=== PATIENT | female | born 1935 | race Caucasian/White ===

== ENCOUNTER 2016-11-30 15:52 | Emergency (ER) | payer MEDICARE ==
--- NOTE | 2016-11-30 16:40 | CT ---
NONCONTRAST CT OF THE BRAIN: 11/30/16 INDICATION: Tripped on porch. Deformity of the right hand. COMPARISON: Prior exam dated 03/28/16. FINDINGS: There is moderate chronic small vessel white matter ischemic change which is stable. There is mild c erebral atrophy which is stable. No definite acute infarct, hemorrhage, or hydrocephalus present. Se ptum pellucidum and third ventricle are midline. Skull is intact. IMPRESSION: No acute intracranial abnormality. POS: [facility]
[2016-11-30] MEDS ORDERED: Adacel (T-DAP) 0.5 ML VIAL ONE (16:41)
--- NOTE | 2016-11-30 17:03 | RAD ---
AP VIEW OF THE CHEST: INDICATION: Injury. COMPARISON: Prior exam dated 03/24/13. FINDINGS: There is elevation of the right hemidiaphragm. Mild cardiomegaly is present. Pulmonary vasculature appears within normal limits. No pneumothorax is evident. Multilead AICD is similar. Bilateral t otal shoulders are present. No acute osseous abnormality is evident. IMPRESSION: No definite acute abnormality. POS: [facility]
--- NOTE | 2016-11-30 17:04 | RAD ---
THREE VIEWS OF THE RIGHT HAND: INDICATION: Tripped and fell on front porch with right hand deformity. FINDINGS: There is postprocedural change of a right trapeziectomy. There is ankylosis of the thumb MCP joint. 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 There is prominent osteoarthrosis involvin g the IP joint. There is healed fracture deformity involving the distal radius. There is chondroca lcinosis within the TFC. There is chondrocalcinosis within the radiocarpal joint. There is healed deformity involving the ring finger metacarpal and small finger metacarpal. IMPRESSION: 1. No acute osseous abnormality. 2. Postsurgical and posttraumatic deformity of the right hand. POS: [facility]
--- NOTE | 2016-11-30 17:06 | RAD ---
THREE VIEWS OF THE RIGHT SHOULDER: INDICATION: Tripped and fell with deformity. FINDINGS: No acute fracture is evident. However, the polyethylene glenoid prosthesis appears displaced in the inferior aspect of the right glenohumeral joint. The humeral prosthesis projects in the expected p osition. IMPRESSION: Findings suspicious for displacement of the polyethylene glenoid prosthesis within the inferior aspe ct of the glenohumeral joint in the region of the axillary pouch. POS: [facility]
--- NOTE | 2016-11-30 17:07 | RAD ---
TWO VIEWS OF THE RIGHT WRIST: INDICATION: Fall with right wrist pain. FINDINGS: There postsurgical change of a trapeziectomy. There is healed deformity involving the distal radius . There is chondrocalcinosis of the TFC and radiocarpal joints. There is healed deformity involvin g the 4th and 5th metacarpals. There is ankylosis of the thumb MCP joint. No acute fracture or sub luxation is evident. IMPRESSION: No acute fracture or subluxation. POS: [facility]
== END 2016-11-30 18:03 | disposition home or self-care (01) ==
LOC: ERS 15:52
DX: S40.011A Contusion of right shoulder, initial encounter (principal); S69.91XA Unspecified injury of right wrist, hand and finger(s), initial encounter; E78.5 Hyperlipidemia, unspecified; I11.0 Hypertensive heart disease with heart failure; I50.9 Heart failure, unspecified; Z79.82 Long term (current) use of aspirin; Z79.899 Other long term (current) drug therapy; W01.0XXA Fall on same level from slipping, tripping and stumbling without subsequent striking against object, initial encounter
CPT/HCPCS: 70450; 71010; 90471; 90715

== ENCOUNTER 2016-12-02 14:41 | Inpatient (IN) | payer MEDICARE ==
[2016-12-02 15:58] LABS: #Basophils 0.1 thou/uL (0.0-0.2); #Eosinphils 0.2 thou/uL (0.0-0.7); #Lymphocytes 1.4 thou/uL (1.20-3.40); #Monocytes 0.8 thou/uL (0.11-0.59); %Eosinophils 2.4 % (0.0-10.0); %Lymphocytes 21.8 % (21.0-51.0); %Monocytes 12.8 % (0.0-10.0); Hematocrit 28.4 % (36.0-47.0); Mean Platelet Volume 6.8 fL (7.4-10.4); Red Blood Cell (RBC) Count 3.15 mill/uL (4.20-5.40); White Blood Cell (WBC) Count 6.4 thou/uL (4.8-10.8)
--- NOTE | 2016-12-02 15:58 | RAD ---
SINGLE VIEW OF THE CHEST 12/02/16 COMPARISON: 11/30/16 HISTORY: Hypotension and hypoxia. FINDINGS: Single view of the chest shows an enlarged but stable cardiomediastinal silhouette. The pacemaker is unchanged in position. There is stable elevation of the right hemidiaphragm. There is no evidence o f consolidation, mass or pleural effusion. IMPRESSION: Cardiomegaly without evidence of acute cardiopulmonary disease. POS: [facility]
[2016-12-02 16:15] LABS: Bilirubin Small (Negative); Blood, Urine Negative (Negative); Glucose, Urine (Dipstick) Negative (Negative); Ketone, Urine Negative (Negative); Nitrite Negative (Negative); Protein, Urine (Dipstick) 30 mg/dL (Neg-Trace); Urobilinogen 0.2 mg/dL (0.2-1.0)
[2016-12-02 16:17] LABS: Bacteria/HPF 4+ HPF (None Seen); RBC/HPF 0-3 HPF (0-3); Squamous Epithelial 0-3 HPF (0-3)
[2016-12-02 16:24] LABS: ALT (SGPT) 8 U/L (8-55); AST (SGOT) 14 U/L (5-34); Alkaline Phosphatase 66 U/L (40-150); Anion Gap 12 mmol/L (10-20); BUN (Urea Nitrogen) 33 mg/dL (9.8-20.1); Bilirubin, Total 0.6 mg/dL (0.2-1.2); CK (CPK) 40 U/L (29-168); Calc. Creatinine Clearance 0 mL/min (70-130); Calcium 8.8 mg/dL (7.8-10.44); Carbon Dioxide 28 mmol/L (23-31); Chloride 101 mmol/L (98-107); Estimated GFR-MDRD 24; Globulin 2.7 g/dL (2.4-3.5); Lipase 8 U/L (8-78); Protein, Total 5.9 g/dL (6.0-8.3)
[2016-12-02 16:28] LABS: Troponin I Less than 0.010 ng/mL (< 0.028)
[2016-12-02 16:29] LABS: Hyaline Casts/LPF 0-3 HYALINE CAST LPF (0-3 Hyaline)
[2016-12-02 16:30] LABS: Renal Epithelial 0-3 HPF (0-3)
[2016-12-02] MEDS ORDERED: Vancomycin HCl 1.5 GM in Sodium Chloride 0.9% 250 ML 300 ML IVPB SCH (17:15)
[2016-12-02] MEDS ORDERED: cefTRIAXone\\ROCEPHIN 2 GM VIAL ONE ×2 (18:25→19:21)
[2016-12-02] MEDS ORDERED: Sodium Chloride 0.9% 100 ML ONE (18:25)
[2016-12-02] MEDS ORDERED: Acetaminophen 325 MG TAB ONE (18:25)
[2016-12-02] MEDS ORDERED: Ondansetron ODT 4 MG TAB SL PRN (20:11)
[2016-12-02] MEDS ORDERED: Acetaminophen 325 MG TAB PO PRN (20:11)
[2016-12-02] MEDS ORDERED: Ondansetron HCl/PF 4 MG/2 ML Vial IVP PRN (20:11)
[2016-12-02] MEDS ORDERED: cefTRIAXone\\ROCEPHIN 2 GM in Sodium Chloride 0.9% 100 ML IVPB SCH (21:00)
[2016-12-02] MEDS ORDERED: Ondansetron ODT 4 MG TAB PO PRN (21:31)
[2016-12-02] MEDS ORDERED: HYDROcodone/Acetaminophen 10/325 mg Tablet PO PRN (21:31)
[2016-12-02] MEDS ORDERED: HYDROcodone/Acetaminophen 5/325 mg Tablet PO PRN (21:31)
[2016-12-02] MEDS: Sodium Chloride 0.9% 1,000 ML IV SCH (21:43)
[2016-12-02] MEDS: cefTRIAXone\\ROCEPHIN 1 GM in Sodium Chloride 0.9% 100 ML IVPB SCH (21:47)
--- NOTE | 2016-12-02 22:33 | HP ---
DATE OF ADMISSION: 12/02/2016 CHIEF COMPLAINT: Low blood pressure, falls. PRIMARY CARE PHYSICIAN: Dr. Jarrell Yadav. HISTORY OF PRESENT ILLNESS: Ms. Lew is a pleasant 81-year-old white female with multiple recent f alls including one leaving her with a right forearm fracture. Today, she fell x2. The home health care took her blood pressure and noted her systolic was in the 70s or so. She was sent to the Emerg ency Department for evaluation. She denies any syncope or presyncope. No head injury. She denies any hematuria or dysuria, no increased urinary frequency or foul odor. She denies any chest pain or shortness of breath, no fevers or chills. In the emergency department, she continued to have low blood pressures in the 80s-90s systolic. She was given 1 liter bolus of normal saline and repeat blood pressures were in the low 100s. Laboratory evaluation showed her to have acute kidney injury with creatinine of 2.01 where it was 0. 71 just recently. She also had drop in her hemoglobin from 10.1-8.6. The rest of her labs were lar nyla unremarkable. We were called for the acute kidney injury, and multiple falls with hypotension. PAST MEDICAL HISTORY: 1. Chronic atrial fibrillation. 2. Congestive heart failure. 3. Cardiomyopathy. 4. Hyperlipidemia. 5. Hypertension. 6. Hypothyroidism. 7. Obstructive sleep apnea. 8. Gastroesophageal reflux disease. PAST SURGICAL HISTORY: Includes: 1. Pacer/AICD placement. 2. Right total hip arthroplasty. 3. Appendectomy. 4. Hysterectomy. 5. Cholecystectomy. 6. Left knee surgery. 7. Right shoulder surgery. 8. L-spine fusion several years ago. HOME MEDICATIONS: 1. Aspirin 81 mg daily. 2. Atorvastatin 80 mg daily. 3. Lovastatin 40 mg daily. 4. Lasix 20 mg daily. 5. Gabapentin 300 mg p.o. t.i.d. 6. Levothyroxine 100 mcg daily. 7. Methotrexate 10 mg subcu once a week. 9. Reglan 5 mg oral q.i.d. 10. Spironolactone 25 mg daily. 11. Tylenol #3 one to two every 4 hours as needed. 12. MS Contin 45 mg total p.o. b.i.d. 13. Plavix 75 mg daily. 14. Coreg 25 mg p.o. b.i.d. ALLERGIES: SOMA and PENICILLIN. PENICILLIN 50-60 years ago caused her to have itchiness without ra sh. FAMILY HISTORY: Negative for history of clotting or bleeding disorder, no immune dysfunction. SOCIAL HISTORY: Negative for habits x3. She has a granddaughter that accompanies her to this visit . REVIEW OF SYSTEMS: A 10-point review of systems was performed, negative for all other systems excep t as stated as per HPI. PHYSICAL EXAMINATION: VITAL SIGNS: Temperature is 97.9, pulse 90, blood pressure is 97/73, respiratory rate 22, satting 1 00% on room air. GENERAL: She is awake. She is alert. She is oriented x3. She is a chronically ill-appearing obes e elderly white female. She is in no acute distress. HEENT: Normocephalic, atraumatic. Pupils are equal, round and reactive to light bilaterally. Muco us membranes moist. No visible lesion. No thrush. LUNGS: Clear anteriorly. She has faint bibasilar crackles in both bases. CARDIOVASCULAR: She has normal S1 and S2, no S3, S4. She is slightly tachycardic, but regular. ABDOMEN: Obese, it is nontender, nondistended, no masses or organomegaly. EXTREMITIES: No cyanosis, no clubbing with trace bilateral lower extremity edema. SKIN: Does show ecchymosis present all over. She has got both of her wrists in braces that are pre sent due to fractures. NEUROLOGIC: Cranial nerves II through XII are grossly intact without any focal neurologic deficits. She is able to move all 4 extremities, 5/5 strength, and normal speech. LABORATORY DATA: CMP revealed a creatinine of 2.01 from 0.71 about 2 months ago, the remainder of t he CMP is largely within normal limits. BNP elevated at 855.3. Troponin I was undetectable with CK -MB of 1.3. CBC showed a white count of 6.4, hemoglobin 8.6, hematocrit 28.4 and platelets 202,000. Urinalysis showed 30 protein, small bilirubin, moderate leukocyte esterase, greater than 50, too n umerous to count white blood cells, 4+ bacteria and no epithelial cells. X-RAY FINDINGS: Chest x-ray showed cardiomegaly, no acute cardiopulmonary disease. ASSESSMENT AND PLAN: 1. Acute kidney injury: Etiology not clear. I am not sure if this is from her prolonged hypotensi on or over diuresis causing her hypotension leading to acute kidney injury. At this point, we will start her on IV fluids carefully at 75 mL an hour for the next 8 hours, gives her approximately 500 mL total. We will check her creatinine in the morning. I think this is an acute kidney injury due to hypovolemia. 2. Hypotension: Patient responded well to her first liter of fluids. Continue fluids in the night and we will hold her blood pressure medicines for now. Certainly with her acute kidney injury, she could be holding onto her blood pressure medicine systemically longer than normal. 3. Acute cystitis: The patient had a normal lactic acid of 1.0, increased creatinine, initially lo w blood pressure, but no other signs of sepsis. We will start her on Rocephin 1 gram IV q.24 hours and wait for culture. The patient does have a history of recurrent cystitis that has on occasion dr opped her pressure. 4. Atrial fibrillation. 5. History of chronic systolic congestive heart failure: We will ask Dr. Belel to come by and s ee her at the patient's request. 6. Hyperlipidemia. 7. Hypertension, medicines currently on hold due to hypotension. 8. Hypothyroidism. We will continue her levothyroxine. 9. Obstructive sleep apnea.
[2016-12-03 06:35] LABS: Anion Gap 14 mmol/L (10-20); BUN (Urea Nitrogen) 37 mg/dL (9.8-20.1); Calc. Creatinine Clearance 22 mL/min (70-130); Carbon Dioxide 28 mmol/L (23-31); Chloride 101 mmol/L (98-107); Estimated GFR-MDRD 20
[2016-12-03 06:45] LABS: Band 1 % (5-11); Hematocrit 27.7 % (36.0-47.0); Neutrophil 65 % (42-75); Red Blood Cell (RBC) Count 3.12 mill/uL (4.20-5.40); White Blood Cell (WBC) Count 4.3 thou/uL (4.8-10.8)
[2016-12-03] MEDS ORDERED: Non-Formulary Item 1 EACH (Metoclopramide Hcl [Metoclopramide Hcl] 5 MG) PO SCH (09:00)
[2016-12-03] MEDS ORDERED: FLU VACC TS2017-18 (>65YR) 0.5 ML SYRINGE IM ONE (09:00)
[2016-12-03] MEDS ORDERED: Apixaban 5 MG TAB PO SCH ×2 (09:00)
[2016-12-03] MEDS: Aspirin 81 mg Enteric Coated Tablet PO SCH (09:23)
[2016-12-03] MEDS: Metoclopramide HCl 10 MG TAB PO SCH ×2 (09:23→11:43)
[2016-12-03] MEDS: Gabapentin 300 MG CAP PO SCH ×4 (09:24→21:18)
[2016-12-03] MEDS: Morphine ER 30 MG TAB PO SCH ×2 (09:27→21:14)
[2016-12-03] MEDS: Morphine ER 15 MG TAB PO SCH ×2 (09:27→21:14)
--- NOTE | 2016-12-03 10:03 | PDOC.PN ---
- Subjective Encounter Start Date: 12/03/16 Encounter Start Time: 09:15 PT seen and examined on rounds. sleeping soundly, arousable, but falls back to sleep. No acute events overnight. no F/C, no N/V/d/c, no CP, no SOB 10 point ROS performed Pain is stable. ALl other systems neg except as above - Objective Resuscitation Status: full MAR Reviewed: Yes Vital Signs & Weight: Vital Signs (12 hours) Temp Pulse Resp BP Pulse Ox 12/03/16 09:19 98.4 F 75 18 120/59 L 100 12/03/16 04:00 97.6 F 76 20 108/77 100 12/03/16 00:25 97.5 F L 75 20 112/59 L 95 Weight Weight 158 lb 1.6 oz I&O: 12/02/16 12/03/16 12/04/16 06:59 06:59 06:59 Intake Total 940 Output Total 420 Balance 520 Result Diagrams: 12/03/16 05:25 12/03/16 05:25 Radiology Reviewed by me: Yes EKG Reviewed by me: Yes Phys Exam - Physical Examination Constitutional: NAD HEENT: PERRLA, moist MMs, sclera anicteric, oral pharynx no lesions Neck: no nodes, no JVD, supple, full ROM Respiratory: no wheezing, no rales, no rhonchi Cardiovascular: RRR, no significant murmur, no rub Gastrointestinal: soft, non-tender, no distention, positive bowel sounds Musculoskeletal: pulses present, edema present Neurological: non-focal, normal sensation, moves all 4 limbs Lymphatic: no nodes Psychiatric: normal affect Skin: no rash, normal turgor, cap refill <2 seconds Dx/Plan (1) Hypotension Status: Resolved Qualifiers: Hypotension type: hypotension due to drug Qualified Code(s): I95.2 - Hypotension due to drugs Comment: suspect overdiruesis. Got about a half liter of fluid overnight. Cr slightly up, likely due to ATN form prolonged hypotension. BP better now. Eating ok. Will slow down on fluids. hold diuretics. (2) UTI (urinary tract infection) Status: Acute Qualifiers: Urinary tract infection type: acute cystitis Hematuria presence: without hematuria Qualified Code(s): N30.00 - Acute cystitis without hematuria Comment: On rocephin. Culture should be pending (3) TRAN (acute kidney injury) Code(s): N17.9 - ACUTE KIDNEY FAILURE, UNSPECIFIED Status: Acute Comment: Cr usually 0.7-0.8. 2 on admit, 2.3 today. Suspect ATN form prolonged hypotension. Will support, hold nephrotoxic agent. daily labs. no indication for dialysis. (4) Acute blood loss anemia Code(s): D62 - ACUTE POSTHEMORRHAGIC ANEMIA Status: Acute Comment: due to falls and plavix. Stable overnight. [facility] (5) Chronic systolic CHF (congestive heart failure) Code(s): I50.22 - CHRONIC SYSTOLIC (CONGESTIVE) HEART FAILURE Status: Chronic Comment: watch for s/sx of overload. stop IV fluids soon. Pednign cardiolog consult. Could represent cardiorenal syndrome (6) Recurrent falls Code(s): R29.6 - REPEATED FALLS Status: Chronic (7) Orthostasis Code(s): I95.1 - ORTHOSTATIC HYPOTENSION Status: Acute Comment: due to overdiruesis. better today. Will get PT to see. orthostatics (8) Hypovolemia Code(s): E86.1 - HYPOVOLEMIA Status: Acute (9) Chronic pain disorder Code(s): G89.4 - CHRONIC PAIN SYNDROME Status: Chronic Comment: continue home meds, ordered this morning (10) Hypothyroidism Code(s): E03.9 - HYPOTHYROIDISM, UNSPECIFIED Status: Chronic Qualifiers: Hypothyroidism type: acquired Qualified Code(s): E03.9 - Hypothyroidism, unspecified (11) GERD (gastroesophageal reflux disease) Code(s): K21.9 - GASTRO-ESOPHAGEAL REFLUX DISEASE WITHOUT ESOPHAGITIS Status: Chronic Qualifiers: Esophagitis presence: without esophagitis Qualified Code(s): K21.9 - Gastro -esophageal reflux disease without esophagitis (12) SARAI (obstructive sleep apnea) Code(s): G47.33 - OBSTRUCTIVE SLEEP APNEA (ADULT) (PEDIATRIC) Status: Chronic (13) Hypertension Code(s): I10 - ESSENTIAL (PRIMARY) HYPERTENSION Status: Chronic Qualifiers: Hypertension type: essential hypertension Qualified Code(s): I10 - Essential (primary) hypertension (14) Atrial fibrillation Code(s): I48.91 - UNSPECIFIED ATRIAL FIBRILLATION Status: Chronic Qualifiers: Atrial fibrillation type: chronic Qualified Code(s): I48.2 - Chronic atrial fibrillation - Plan cont current plan of care, continue antibiotics, PT/OT * .
[2016-12-03] MEDS: Sodium Chloride 0.9% 1,000 ML IV SCH (11:43)
--- NOTE | 2016-12-03 16:35 | CON ---
DATE OF CONSULTATION: 12/03/2016 REASON FOR CONSULTATION: Hypotension. PRIMARY CARE PROVIDER: Manish Matamoros MD HISTORY OF PRESENT ILLNESS: Ms. Lew is a pleasant 81-year-old woman who is a patient of Dr. Martin Belle. She recently presented with a recent fall. She states she recently fractured her wrist. She has had 3 falls in the last 3 to 4 days. She was seen and evaluated in the home by a nurse pra ctitioner where she was found to have blood pressure in the 70s. EMS was summoned and confirmed the above. She was then seen and evaluated in the emergency room where she was subsequently admitted. Her creatinine was also decreased. In the interim, her creatinine has improved as her blood pressu re. She is currently on antibiotic treatment. PAST MEDICAL HISTORY: Atrial fibrillation, hypertension, hyperlipidemia, cardiomyopathy, hypotensio n, sleep apnea, acid reflux. PAST SURGICAL HISTORY: ICD placement, hip arthroplasty, shoulder surgery, cholecystectomy, hysterec randell, appendectomy, L-spine fusion. ALLERGIES: SOMA and PENICILLIN. MEDICATIONS: Include Lasix, gabapentin, methotrexate, Reglan, Tylenol, MS Contin, Plavix, Coreg, La six, atorvastatin, and aspirin. REVIEW OF SYSTEMS: A 10-point review of systems is reviewed and as above, otherwise negative. PHYSICAL EXAMINATION: GENERAL: Patient is a pleasant female who is in no acute distress. The patient appears her stated age. VITAL SIGNS: Blood pressure 116/56, pulse 78, temperature 98.8. NEUROLOGIC: The patient is alert and oriented times 3 with no focal neurologic deficits. HEENT: Sclerae without icterus. Mouth has moist mucous membranes with normal pallor. NECK: No JVD. Carotid upstroke brisk. No bruits bilaterally. LUNGS: Clear to auscultation with unlabored respirations. BACK: No scoliosis or kyphosis. CARDIAC: Irregularly irregular rate and rhythm with normal S1 and S2. No S3 or S4 noted. No significant rubs, murmurs, thrills, or gallops noted throughout the precordium. PMI is not displ aced. There is no parasternal heave. ABDOMEN: Soft, nontender, nondistended. No peritoneal signs present. No hepatosplenomegaly. No a bnormal striae. EXTREMITIES: 2+ femoral and 2+ dorsalis pedis pulses. No cyanosis, clubbing, or edema. SKIN: No gross abnormalities. PERTINENT LABORATORY: Hemoglobin 8.6, creatinine 2.32. IMPRESSION: 1. Hypotension, now resolved. 2. Elevated creatinine, likely secondary to hypovolemia. 3. Chronic atrial fibrillation, off anticoagulation therapy due to recent falls. RECOMMENDATIONS: At this point, we will continue to hold off on anticoagulation therapy. She has f all risk with multiple abrasions and recent fracture. Etiology to her falls, need to be addressed. She also has an involuntary jerking motion which her states it is new since her hospitaliza tion. Maybe medication induced. We will hold her Reglan. Otherwise, from a CV standpoint, she vicente ears stable.
[2016-12-03] MEDS: cefTRIAXone\\ROCEPHIN 1 GM in Sodium Chloride 0.9% 100 ML IVPB SCH (21:14)
--- NOTE | 2016-12-03 21:31 | CT ---
CT BRAIN NONCONTRAST: HISTORY: A 81-year-old female with altered mental status. FINDINGS: There is no midline shift or any other mass effect. There is no evidence of acute intracranial hemo rrhage, large cortical infarct, obstructive hydrocephalus, or extraaxial fluid collection. The calv arium is intact. There is diffuse parenchymal volume loss. There are low attenuation areas in the white matter. These are nonspecific, but in a patient of this age, they are probably chronic ischem ic white matter changes due to microvascular atherosclerosis. IMPRESSION: 1) No acute intracranial findings. 2) Involutional changes and chronic ischemic white matter changes. jn [] POS: [facility]
--- NOTE | 2016-12-03 23:49 | PRG ---
DATE OF SERVICE: 12/03/2016 SUBJECTIVE: A Kole Meredith was called on this because the patient was doing progressively weak and al so was a little slow compared to her alertness during the previous stay and during today in the [facility] ing. I came and evaluated the patient. Patient is a little lethargic, but she is answering all que stions appropriately. OBJECTIVE: VITAL SIGNS: Her blood pressure is 170/100 and vital signs seem to be stable, satting 98% on room a ir, afebrile. NEUROLOGIC: Nonfocal. ASSESSMENT AND PLAN: I am going to do a CT scan of the head just to make sure there is no cerebral event causing this. She also has urinary tract infection, which is covered by Rocephin for now. We will monitor her at this hospital stay and do the need for .
[2016-12-04] MEDS: Sodium Chloride 0.9% 1,000 ML IV SCH (03:33)
[2016-12-04] MEDS: Levothyroxine Sodium 100 MCG TAB PO SCH (07:29)
[2016-12-04 09:25] LABS: #Eosinphils 0.1 thou/uL (0.0-0.7); #Lymphocytes 0.8 thou/uL (1.20-3.40); #Monocytes 0.7 thou/uL (0.11-0.59); #Neutrophils 3.9 thou/uL (1.40-6.50); %Basophils 0.7 % (0.0-1.0); %Lymphocytes 14.6 % (21.0-51.0); %Monocytes 12.2 % (0.0-10.0); Hematocrit 28.9 % (36.0-47.0); Mean Platelet Volume 6.7 fL (7.4-10.4); Red Blood Cell (RBC) Count 3.29 mill/uL (4.20-5.40); White Blood Cell (WBC) Count 5.5 thou/uL (4.8-10.8)
[2016-12-04] MEDS: Morphine ER 30 MG TAB PO SCH (09:31)
[2016-12-04] MEDS: Gabapentin 300 MG CAP PO SCH ×3 (09:31→20:35)
[2016-12-04] MEDS: Aspirin 81 mg Enteric Coated Tablet PO SCH (09:31)
[2016-12-04] MEDS: Morphine ER 15 MG TAB PO SCH (09:32)
[2016-12-04 09:59] LABS: Anion Gap 11 mmol/L (10-20); BUN (Urea Nitrogen) 25 mg/dL (9.8-20.1); Calc. Creatinine Clearance 50 mL/min (70-130); Calcium 9.4 mg/dL (7.8-10.44); Carbon Dioxide 26 mmol/L (23-31); Chloride 106 mmol/L (98-107); Estimated GFR-MDRD 50
--- NOTE | 2016-12-04 12:45 | PDOC.PN ---
- Subjective Encounter Start Date: 12/04/16 Encounter Start Time: 09:45 Pt seen and exmained earleir on rounds. no F/C, no v/D, feels nauseated and constipated. No CP, no SOB. BP higher today 10 point ROS performed and neg for all systems except as above called back to see family, spent 30 minutes there form 12:45-1:15 going over findings, results, and updated plans. 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 family relate she drink iced tea, out of a 30+ ounce mug, all day long. she will usually go through 5 of them daily. today she has a brifontal headache, throbbing. i suspect its caffeine withdawl - Objective Resuscitation Status: full MAR Reviewed: Yes Vital Signs & Weight: Vital Signs (12 hours) Temp Pulse Resp BP Pulse Ox 12/04/16 09:35 98.2 F 92 20 97 12/04/16 08:00 98.2 F 92 20 163/91 H 97 12/04/16 04:39 99.1 F 96 20 166/91 H 94 L Weight Weight 163 lb I&O: 12/03/16 12/04/16 12/05/16 06:59 06:59 06:59 Intake Total 940 2436 Output Total 420 880 Balance 520 1556 Result Diagrams: 12/04/16 09:11 12/04/16 09:11 Additional Labs: Accuchecks 12/03/16 19:29 POC Glucose 133 H Radiology Reviewed by me: Yes Phys Exam - Physical Examination Constitutional: NAD HEENT: PERRLA, moist MMs, sclera anicteric, oral pharynx no lesions Neck: no nodes, no JVD, supple, full ROM Respiratory: no wheezing, no rales, no rhonchi faint bibasilar rales Cardiovascular: no significant murmur, no rub, irregular Gastrointestinal: soft, non-tender, no distention, positive bowel sounds Musculoskeletal: no edema, pulses present Neurological: non-focal, normal sensation, moves all 4 limbs Lymphatic: no nodes Psychiatric: normal affect, A&O x 3 Skin: no rash, normal turgor, cap refill <2 seconds Dx/Plan (1) Hypotension Status: Resolved Qualifiers: Hypotension type: hypotension due to drug Qualified Code(s): I95.2 - Hypotension due to drugs Comment: suspect overdiruesis. Got about a half liter of fluid overnight. Cr slightly up, likely due to ATN form prolonged hypotension. BP better now. Eating ok. Stop fluids, hold diuretics, if orthostatics okay, resart Coreg (2) UTI (urinary tract infection) Status: Acute Qualifiers: Urinary tract infection type: acute cystitis Hematuria presence: without hematuria Qualified Code(s): N30.00 - Acute cystitis without hematuria Comment: On rocephin. Culture with Kleb pneumo, snesitive. CCM. to po tomorrow? needs 5-7 days (3) TRAN (acute kidney injury) Code(s): N17.9 - ACUTE KIDNEY FAILURE, UNSPECIFIED Status: Resolved Comment : Cr usually 0.7-0.8. 2 on admit, 1.0 today. Suspect ATN form prolonged hypotension. Will support, hold nephrotoxic agent. daily labs. no indication for dialysis. (4) Acute blood loss anemia Code(s): D62 - ACUTE POSTHEMORRHAGIC ANEMIA Status: Acute Comment: due to falls and plavix. Stable overnight. CCM. Eliquis on hold per cardiology. H/ H stable overnight (5) Chronic systolic CHF (congestive heart failure) Code(s): I50.22 - CHRONIC SYSTOLIC (CONGESTIVE) HEART FAILURE Status: Chronic Comment: watch for s/sx of overload. stop IV fluids soon. Pednign cardiolog consult. Could represent cardiorenal syndrome (6) Recurrent falls Code(s): R29.6 - REPEATED FALLS Status: Chronic Comment: suspect symptomatic orthostatic hypotension. Up with PT when BP stable (7) Orthostasis Code(s): I95.1 - ORTHOSTATIC HYPOTENSION Status: Acute Comment: due to overdiruesis. better today. Will get PT to see. orthostatics (8) Hypovolemia Code(s): E86.1 - HYPOVOLEMIA Status: Resolved (9) Chronic pain disorder Code(s): G89.4 - CHRONIC PAIN SYNDROME Status: Chronic Comment: continue home meds, ordered this morning (10) Hypothyroidism Code(s): E03.9 - HYPOTHYROIDISM, UNSPECIFIED Status: Chronic Qualifiers: Hypothyroidism type: acquired Qualified Code(s): E03.9 - Hypothyroidism, unspecified (11) GERD (gastroesophageal reflux disease) Code(s): K21.9 - GASTRO-ESOPHAGEAL REFLUX DISEASE WITHOUT ESOPHAGITIS Status: Chronic Qualifiers: Esophagitis presence: without esophagitis Qualified Code(s): K21.9 - Gastro -esophageal reflux disease without esophagitis (12) SARAI (obstructive sleep apnea) Code(s): G47.33 - OBSTRUCTIVE SLEEP APNEA (ADULT) (PEDIATRIC) Status: Chronic (13) Hypertension Code(s): I10 - ESSENTIAL (PRIMARY) HYPERTENSION Status: Chronic Qualifiers: Hypertension type: essential hypertension Qualified Code(s): I10 - Essential (primary) hypertension (14) Atrial fibrillation Code(s): I48.91 - UNSPECIFIED ATRIAL FIBRILLATION Status: Chronic Qualifiers: Atrial fibrillation type: chronic Qualified Code(s): I48.2 - Chronic atrial fibrillation - Plan * .
[2016-12-04] MEDS: Acetaminophen 325 MG TAB PO PRN (13:44)
--- NOTE | 2016-12-04 14:11 | RAD ---
SINGLE VIEW OF CHEST: Date: 12/04/16 COMPARISON: 12/02/16. HISTORY: CHF and shortness of breath. FINDINGS: Single view of the chest shows cardiomediastinal silhouette which is upper limits of normal in size. There is elevation of the right hemidiaphragm. There appears to be an infiltrate in the right lower lobe. Pacemaker is unchanged in position. IMPRESSION: Right lower lobe infiltrate. POS: [facility]
[2016-12-04] MEDS: Clindamycin/D5W 600 MG in Premix Bag 1 BAG IVPB SCH (16:53)
[2016-12-04] MEDS: Metoclopramide HCl 10 MG TAB PO SCH ×2 (16:53→20:35)
[2016-12-04] MEDS: Carvedilol 25 MG TAB PO SCH (20:35)
[2016-12-04] MEDS: cefTRIAXone\\ROCEPHIN 1 GM in Sodium Chloride 0.9% 100 ML IVPB SCH (20:43)
[2016-12-05] MEDS: Clindamycin/D5W 600 MG in Premix Bag 1 BAG IVPB SCH ×3 (01:13→16:01)
[2016-12-05] MEDS: Levothyroxine Sodium 100 MCG TAB PO SCH (05:54)
[2016-12-05] MEDS: Carvedilol 25 MG TAB PO SCH ×2 (08:58→21:36)
[2016-12-05] MEDS: Metoclopramide HCl 10 MG TAB PO SCH (08:58)
[2016-12-05] MEDS: Gabapentin 300 MG CAP PO SCH ×3 (08:58→21:19)
[2016-12-05] MEDS: Aspirin 81 mg Enteric Coated Tablet PO SCH (08:58)
[2016-12-05] MEDS ORDERED: Clindamycin/D5W 600 mg/50 ml Premix Bag ONE (09:12)
[2016-12-05] MEDS ORDERED: Nitroglycerin 0.4 MG TAB (25 Tab Bottle) PO PRN (09:21)
[2016-12-05] MEDS ORDERED: Senokot 8.6 MG TAB PO PRN (09:21)
[2016-12-05] MEDS ORDERED: HYDROcodone/Acetaminophen 5/325 mg Tablet PO SCH ×2 (09:30→21:00)
[2016-12-05] MEDS ORDERED: Furosemide 20 MG/2 ML VIAL SLOW IVP SCH (09:45)
--- NOTE | 2016-12-05 10:18 | PRG ---
DATE OF SERVICE: 12/05/2016 SUBJECTIVE: The patient is complaining of shortness of breath. Her mentation has significantly imp roved per RN. She denies any chest pain or palpitations. Generalized tremors have somewhat improve d per RN. PHYSICAL EXAMINATION: VITAL SIGNS: Temperature 98.5, pulse rate of 95, blood pressure 141/81, respiration of 18, O2 satur ation 98% on 2 liter nasal cannula. Intake of 1570, output 1150, weight 163 pounds from 158 pounds on admission. Telemetry monitoring by my review showed paced rhythm. GENERAL: A 81-year-old female in mild respiratory distress, able to complete short sentences. LUNGS: Showed scattered rales at bases. There was reduced air entry at the right base. HEART: S1, S2 present, regular. ABDOMEN: Soft. Bowel sounds present. EXTREMITIES: No edema or calf tenderness. LABORATORY FINDINGS: No labs were done today. Creatinine was 1.06 yesterday. Urine culture showed Klebsiella pneumoniae which is pansensitive. Chest x-ray done yesterday morning was consistent with right lower lobe infiltrate. IMPRESSION: 1. Hypotension. The patient was orthostatic on admission, that has improved. 2. Acute kidney injury on chronic kidney disease stage 3, improved with IV fluids. 3. Status post code green for altered mentation. 4. Klebsiella urinary tract infection. 5. Chronic atrial fibrillation. Anticoagulation was discontinued on admission. 6. Chronic systolic heart failure - Cardiology following. 7. Hypertension. 8. Hyperlipidemia. 9. Hypothyroidism. 10. Chronic pain syndrome. 11. Obstructive sleep apnea. 12. Chronic anemia. 13. Right lower lobe pneumonia, suspected aspiration pneumonia, started on clindamycin yesterday. PLAN: The patient will be monitored on the telemetry unit. We will consult Pulmonary, Dr. Collier for shortness of breath. We will give her a dose of Lasix. We will also repeat a portable chest x-ray today. We will recheck labs in a.m. Anticoagulation was discontinued on admission. We can probab ly start her on heparin subacute 5000 units b.i.d. starting tonight. We will continue other home me dications. We will reduce the dose of Reglan to 5 a.c. and at bedtime. Due to history of chronic p ain medication use we will start her on [place] 5/325 b.i.d. and as needed. Continuous pulse oximetry . Patient is currently on ceftriaxone and clindamycin, which will be continued. We will add probio tics. We will also add neuro checks. Plan of care discussed with the patient and she stated understanding. We will discuss the plan with the family when they arrive. Physical therapy, occupation therapy will be consulted. We will also consult comp field case manager for home health care evaluation.
[2016-12-05] MEDS: Metoclopramide HCl 10 MG/10 ML UDCUP PO SCH ×3 (11:10→21:16)
[2016-12-05] MEDS: Saccharomyces boulardii 250 MG CAP PO SCH (11:11)
--- NOTE | 2016-12-05 13:27 | RAD ---
CHEST ONE VIEW: HISTORY: Shortness of breath. COMPARISON: Chest one view from the prior day. FINDINGS: Elevation of the right hemithorax persists with interposition of bowel between the right hemidiaphra gm and the liver. Small effusions. The cardiac silhouette and mediastinal contours are similar. Moderate pulmonary vascular congestion. IMPRESSION: No significant change in the radiographic appearance of the chest. POS: MED
--- NOTE | 2016-12-05 14:09 | CON ---
DATE OF CONSULTATION: 12/05/2016 HISTORY OF PRESENT ILLNESS: This is a 81-year-old female who was initially admitted to the [facility] after she recently sustained a fall and apparently fractured her wrist. She was found to be hypot ensive and was brought to the hospital. She was found to have atrial fibrillation with a fast rapid rate. She has an ICD in place. We are consulted today regarding an x-ray that suggested a questionable right-sided infiltrate. She basically is a nonsmoker. She smoked remotely some 40 years ago for 2 years. No previous history of pneumonia. No history of TB, pneumonia, bronchial asthma. She is clearly having difficulty nelly thing. She is coughing. She is wheezing. She denied any chest pain. PAST MEDICAL HISTORY: 1. Atrial fibrillation. 2. Hypertension. 3. Hyperlipidemia. 4. Cardiomyopathy. 5. Reflux. 6. Sleep apnea. PAST SURGICAL HISTORY: 1. Spine surgery. 2. Shoulder. 3. Automatic implantable cardioverter/defibrillator. 4. Gallbladder. MEDICATIONS FROM HOME: Azulfidine 50 twice a day, twice a day, Sotalol 120, Altace, morphine 45 b.i.d., Synthroid 112, Amikacin, Prevacid, hydrocodone, Coreg 25, Eliquis 1 twice a day, aspirin. ALLERGIES: PENICILLIN, ZANAFLEX. REVIEW OF SYSTEMS: Otherwise negative. PHYSICAL EXAMINATION: VITAL SIGNS: Blood pressure is 141/81, pulse is 70 and irregular, respirations 32, O2 sat 97% on 3 liters. CHEST: Chest revealed occasional wheeze. CARDIAC: Atrial fibrillation. ABDOMEN: Soft. LABORATORY: Shows a white count of only 5,000, H\T\H 9 and 27, platelet count is 212. Creatinine is normal. Electrolytes are normal. X-ray shows a markedly elevated right hemidiaphragm. BNP is 855. IMPRESSION: 1. Dyspnea, probably chronic in origin. I doubt she has significant pneumonia. 2. Markedly elevated right hemidiaphragm, old. 3. Essentially nonsmoker. 4. Atrial fibrillation. PLAN: Await input from Cardiology. Can restart her cardiac medication from home. She is taking mu ltiple medications for rheumatoid arthritis including morphine for pain, etc. At this stage she nee ds to be restarted back on her anticoagulation. I am going to add some steroids. Otherwise continu e neb treatments. I will follow.
[2016-12-05] MEDS ORDERED: Sotalol HCl 80 MG TAB PO SCH (15:15)
[2016-12-05] MEDS: Sotalol HCl 80 MG TAB PO SCH (21:18)
[2016-12-05] MEDS: Morphine ER 15 MG TAB PO SCH (21:19)
[2016-12-05] MEDS: Famotidine 20 MG TAB PO SCH (21:19)
[2016-12-05] MEDS: Docusate 100 MG CAP PO SCH (21:19)
[2016-12-05] MEDS: Heparin 5,000 UNITS/ML VIAL SC SCH (21:20)
[2016-12-05] MEDS: cefTRIAXone\\ROCEPHIN 1 GM in Sodium Chloride 0.9% 100 ML IVPB SCH (21:42)
[2016-12-05] MEDS: HYDROcodone/Acetaminophen 5/325 mg Tablet PO PRN (21:47)
[2016-12-06] MEDS: Clindamycin/D5W 600 MG in Premix Bag 1 BAG IVPB SCH ×3 (01:12→17:04)
[2016-12-06 06:19] LABS: #Eosinphils 0.1 thou/uL (0.0-0.7); #Lymphocytes 0.6 thou/uL (1.20-3.40); #Monocytes 0.2 thou/uL (0.11-0.59); #Neutrophils 2.9 thou/uL (1.40-6.50); %Eosinophils 2.4 % (0.0-10.0); %Lymphocytes 15.6 % (21.0-51.0); %Monocytes 4.4 % (0.0-10.0); Hematocrit 29.8 % (36.0-47.0); Mean Platelet Volume 7.5 fL (7.4-10.4); Red Blood Cell (RBC) Count 3.46 mill/uL (4.20-5.40); White Blood Cell (WBC) Count 3.7 thou/uL (4.8-10.8)
[2016-12-06 06:20] LABS: Anion Gap 13 mmol/L (10-20); BUN (Urea Nitrogen) 19 mg/dL (9.8-20.1); BUN/Creatinine Ratio 22.35; Calc. Creatinine Clearance 63 mL/min (70-130); Calcium 9.9 mg/dL (7.8-10.44); Carbon Dioxide 24 mmol/L (23-31); Chloride 105 mmol/L (98-107); Estimated GFR-MDRD 65; Magnesium 1.6 mg/dL (1.6-2.6); Phosphorus 2.7 mg/dL (2.3-4.7)
[2016-12-06] MEDS: Levothyroxine Sodium 100 MCG TAB PO SCH (06:47)
[2016-12-06] MEDS: Metoclopramide HCl 10 MG/10 ML UDCUP PO SCH ×4 (08:09→22:07)
[2016-12-06] MEDS: Folic Acid 1 MG TAB PO SCH (08:10)
[2016-12-06] MEDS: Heparin 5,000 UNITS/ML VIAL SC SCH ×2 (08:10→21:03)
[2016-12-06] MEDS: Famotidine 20 MG TAB PO SCH ×2 (08:10→21:03)
[2016-12-06] MEDS: Gabapentin 300 MG CAP PO SCH ×3 (08:10→21:03)
[2016-12-06] MEDS: Aspirin 81 mg Enteric Coated Tablet PO SCH (08:10)
[2016-12-06] MEDS: Carvedilol 25 MG TAB PO SCH ×2 (08:10→21:06)
[2016-12-06] MEDS: Sotalol HCl 80 MG TAB PO SCH (08:10)
[2016-12-06] MEDS: Morphine ER 15 MG TAB PO SCH (08:11)
[2016-12-06] MEDS: Docusate 100 MG CAP PO SCH ×2 (08:25→22:07)
--- NOTE | 2016-12-06 10:51 | PRG ---
DATE OF SERVICE: 12/06/2016 This morning she is lethargic, but arousable. She was taking MS Contin 15 twice a day. PHYSICAL EXAMINATION: VITAL SIGNS: Sats are 97% on 2 liters, temperature is 98, blood pressure 180/96. She was complaining of pain all over. CHEST: Chest revealed decreased breath sounds, no wheezing. CARDIAC: Normal S1-S2. No gallops. White count 3.7, H\T\H 9 and 29, platelet count was 167. Electrolytes are normal. X-ray shows clear hemidiaphragm, questionable infiltrate. IMPRESSION: 1. Chronic pain on medication, MS Contin is causing obvious drowsiness. 2. Questionable right-sided infiltrate. Continue antibiotics. I have ordered an echo. I will follow.
[2016-12-06] MEDS: Furosemide 40 MG/4 ML VIAL SLOW IVP SCH (11:18)
[2016-12-06] MEDS: Saccharomyces boulardii 250 MG CAP PO SCH (11:18)
--- NOTE | 2016-12-06 18:54 | PDOC.PN ---
- Subjective Encounter Start Date: 12/06/16 Encounter Start Time: 18:53 Patient seen and examined. No new complaints. Lethargic - wakes up on verbal commands - answers appropriately in short sentences. - Objective MAR Reviewed: Yes Vital Signs & Weight: Vital Signs (12 hours) Temp Pulse Pulse Pulse Pulse Resp BP 12/06/16 18:30 91 18 12/06/16 16:27 98.9 F 88 16 12/06/16 14:30 88 16 12/06/16 12:05 98.2 F 89 12 12/06/16 11:05 12/06/16 10:54 85 16 12/06/16 10:10 90 83 103 H 165/90 H 12/06/16 08:10 98 12/06/16 08:00 98.6 F 98 14 12/06/16 06:58 90 16 BP BP BP BP BP BP Pulse Ox 12/06/16 18:30 96 12/06/16 16:27 175/87 H 93 L 12/06/16 14:30 12/06/16 12:05 141/82 H 94 L 12/06/16 11:05 165/83 H 143/86 H 165/90 H 12/06/16 10:54 12/06/16 10:10 165/83 H 143/86 H 12/06/16 08:10 12/06/16 08:00 180/96 H 95 12/06/16 06:58 Pulse Ox Pulse Ox Pulse Ox 12/06/16 18:30 12/06/16 16:27 12/06/16 14:30 12/06/16 12:05 12/06/16 11:05 12/06/16 10:54 12/06/16 10:10 94 L 94 L 88 L 12/06/16 08:10 12/06/16 08:00 12/06/16 06:58 Weight Weight 159 lb 3.2 oz I&O: 12/05/16 12/06/16 12/07/16 06:59 06:59 06:59 Intake Total 1570 1140 460 Output Total 8196 971 2603 Balance 420 240 -640 Result Diagrams: 12/06/16 05:56 12/06/16 05:56 EKG Reviewed by me: Yes (Tele Paced) Phys Exam - Physical Examination Constitutional: NAD Lethargic Respiratory: no wheezing, no rhonchi Scat rales at bases Cardiovascular: RRR, no rub Gastrointestinal: soft, non-tender, no distention, positive bowel sounds Musculoskeletal: no edema Dx/Plan - Plan cont current plan of care, plan discussed w/ family, continue antibiotics, PT/OT , DVT proph w/heparin, DVT proph w/SCDs IMPRESSION: 1. Hypotension. The patient was orthostatic on admission, that has improved. 2. Acute kidney injury on chronic kidney disease stage 3, improved with IV fluids. 3. Status post code green for altered mentation. 4. Klebsiella urinary tract infection. 5. Chronic atrial fibrillation. Anticoagulation was discontinued on admission. 6. Chronic systolic heart failure - Cardiology following. 7. Hypertension. 8. Hyperlipidemia. 9. Hypothyroidism. 10. Chronic pain syndrome. 11. Obstructive sleep apnea. 12. Chronic anemia. 13. Right lower lobe pneumonia, suspected aspiration pneumonia, started on clindamycin yesterday. PLAN: * Continuous pulse oximetry with neuro checks. * Patient was started on low dose MS Contin per family request - Will hold for now due to lethargy * Cardiology following * AM labs * Cont to monitor closely * Poor appetite - will start D5NS at KVO * Cont other meds as below Review of Systems - Review of Systems Respiratory: negative: Cough, Dry, Shortness of Breath, Hemoptysis, SOB with Excertion, Pleuritic Pain, Sputum, Wheezing Cardiovascular: negative: Chest Pain, Palpitations, Orthopnea, Paroxysmal Noc. Dyspnea, Edema, Light Headedness, Other - Medications/Allergies Allergies/Adverse Reactions: Allergies Allergy/AdvReac Type Severity Reaction Status Date / Time carisoprodol Allergy Unknown Verified 12/03/16 01:09 Penicillins Allergy Unknown Verified 12/03/16 01:09 NSAIDS (Non-Steroidal Allergy Verified 12/03/16 01:48 Anti-Inflamma tizanidine [From Zanaflex] Allergy Verified 12/03/16 01:48 Medications: Current Medications Acetaminophen (Tylenol) 650 mg PO Q4H PRN PRN Reason: Headache/Fever or Pain Last Admin: 12/04/16 13:44 Dose: 650 mg Hydrocodone Bitart/Acetaminophen ([place] 5/325) 1 tab PO Q4H PRN PRN Reason: Severe Pain (7-10) Last Admin: 12/05/16 21:47 Dose: 1 tab Albuterol/Ipratropium (Duoneb) 3 ml NEB [id number] PRN PRN Reason: SOB &/or Wheezing Albuterol/Ipratropium (Duoneb) 3 ml NEB [id number] [facility] Last Admin: 12/06/16 18:30 Dose: 3 ml Aspirin (Ecotrin) 81 mg PO DAILY [facility] Last Admin: 12/06/16 08:10 Dose: 81 mg Butalbital/Aspirin/Caffeine (Fiorinal) 1 tab PO Q4H PRN PRN Reason: Headache Carvedilol (Coreg) 50 mg PO BID [facility] Digoxin (Lanoxin) 0.125 mg PO DAILY [facility] Docusate Sodium (Colace) 100 mg PO BID [facility] Last Admin: 12/06/16 08:25 Dose: Not Given Famotidine (Pepcid) 20 mg PO BID [facility] Last Admin: 12/06/16 08:10 Dose: 20 mg Folic Acid (Folvite) 1 mg PO DAILY [facility] Last Admin: 12/06/16 08:10 Dose: 1 mg Furosemide (Lasix) 40 mg SLOW IVP 1100 [facility] Last Admin: 12/06/16 11:18 Dose: 40 mg Gabapentin (Neurontin) 300 mg PO TID [facility] Last Admin: 12/06/16 13:56 Dose: 300 mg Heparin Sodium (Porcine) (Heparin) 5,000 units SC BID [facility] Last Admin: 12/06/16 08:10 Dose: 5,000 units Hydralazine HCl (Apresoline) 10 mg SLOW IVP Q4H PRN PRN Reason: SBP Greater Than 180 Ceftriaxone Sodium 1 gm/ (Sodium Chloride) 100 mls @ 200 mls/hr IVPB 2200 [facility] Last Admin: 12/05/16 21:42 Dose: 100 mls Clindamycin Phosphate/Dextrose (600 mg/ Device) 50 mls @ 100 mls/hr IVPB 0100, 0900,1700 [facility] Last Admin: 12/06/16 17:04 Dose: 50 mls Dextrose/Sodium Chloride (D5 0.9% Ns) 1,000 mls @ 30 mls/hr IV .Q24H [facility] Levothyroxine Sodium (Synthroid) 100 mcg PO 0600 [facility] Last Admin: 12/06/16 06:47 Dose: 100 mcg Methylprednisolone Sodium Succinate (Solu-Medrol) 40 mg IVP Q6HR [facility] Last Admin: 12/06/16 17:04 Dose: 40 mg Metoclopramide HCl (Reglan) 5 mg PO ACHS [facility] Last Admin: 12/06/16 17:04 Dose: Not Given Nitroglycerin (Nitrostat) 0.4 mg PO Q5MIN PRN PRN Reason: Chest Pain Ondansetron HCl (Zofran Odt) 4 mg PO Q6H PRN PRN Reason: Nausea/Vomiting Last Admin: 12/05/16 19:15 Dose: 4 mg Saccharomyces Boulardii (Florastor) 250 mg PO 1200 [facility] Last Admin: 12/06/16 11:18 Dose: 250 mg Senna (Senokot) 2 tab PO HSPRN PRN PRN Reason: Constipation Sodium Chloride (Flush - Normal Saline) 10 ml IVF Q12HR [facility] Last Admin: 12/06/16 08:11 Dose: 10 ml Sodium Chloride (Flush - Normal Saline) 10 ml IVF PRN PRN PRN Reason: Saline Flush Last Admin: 12/05/16 11:53 Dose: 10 ml
[2016-12-06] MEDS ORDERED: Dextrose 5 % And 0.9 % NaCl 1,000 ML IV SCH (19:00)
[2016-12-06] MEDS: cefTRIAXone\\ROCEPHIN 1 GM in Sodium Chloride 0.9% 100 ML IVPB SCH (21:03)
[2016-12-06] MEDS: HYDROcodone/Acetaminophen 5/325 mg Tablet PO PRN (21:21)
[2016-12-07] MEDS: Clindamycin/D5W 600 MG in Premix Bag 1 BAG IVPB SCH ×2 (00:58→08:42)
[2016-12-07] MEDS: HYDROcodone/Acetaminophen 5/325 mg Tablet PO PRN ×2 (00:59→21:27)
[2016-12-07] MEDS: hydrALAZINE 20 MG/ML VIAL SLOW IVP PRN (04:13)
[2016-12-07] MEDS: Levothyroxine Sodium 100 MCG TAB PO SCH (04:13)
[2016-12-07 04:36] LABS: #Lymphocytes 0.5 thou/uL (1.20-3.40); #Monocytes 0.3 thou/uL (0.11-0.59); #Neutrophils 4.3 thou/uL (1.40-6.50); %Basophils 0.4 % (0.0-1.0); %Eosinophils 0.1 % (0.0-10.0); %Lymphocytes 9.6 % (21.0-51.0); Hematocrit 30.2 % (36.0-47.0); Mean Platelet Volume 6.7 fL (7.4-10.4); Red Blood Cell (RBC) Count 3.53 mill/uL (4.20-5.40); White Blood Cell (WBC) Count 5.1 thou/uL (4.8-10.8)
[2016-12-07 04:53] LABS: Anion Gap 11 mmol/L (10-20); BUN (Urea Nitrogen) 29 mg/dL (9.8-20.1); Calc. Creatinine Clearance 43 mL/min (70-130); Calcium 10.2 mg/dL (7.8-10.44); Carbon Dioxide 30 mmol/L (23-31); Chloride 102 mmol/L (98-107); Estimated GFR-MDRD 43
[2016-12-07] MEDS: Metoclopramide HCl 10 MG/10 ML UDCUP PO SCH ×4 (07:37→21:21)
[2016-12-07] MEDS: Apixaban 5 MG TAB PO SCH ×2 (08:41→21:18)
[2016-12-07] MEDS: Sotalol HCl 80 MG TAB PO SCH ×2 (08:41→21:17)
[2016-12-07] MEDS: Dextrose 5 % And 0.9 % NaCl 1,000 ML IV SCH (08:41)
[2016-12-07] MEDS: Digoxin 0.125 MG TAB PO SCH (08:42)
[2016-12-07] MEDS: Folic Acid 1 MG TAB PO SCH (08:42)
[2016-12-07] MEDS: Famotidine 20 MG TAB PO SCH ×2 (08:42→21:17)
[2016-12-07] MEDS: Carvedilol 25 MG TAB PO SCH ×2 (08:42→21:18)
[2016-12-07] MEDS: Docusate 100 MG CAP PO SCH ×2 (08:42→21:17)
[2016-12-07] MEDS: Gabapentin 300 MG CAP PO SCH ×3 (08:42→21:18)
--- NOTE | 2016-12-07 11:15 | PRG ---
DATE OF SERVICE: 12/07/2016 This morning she appears to be a little bit more awake, responsive. PHYSICAL EXAMINATION: VITAL SIGNS: Sats 94 on 3 liters, pulse 97, blood pressure 147/97. CHEST: No wheezing, crackles. CARDIAC: Normal S1, S2. ABDOMEN: Soft, no masses. LABORATORY DATA: White count 5000, H\T\H is 9 and 30, platelet count normal, creatinine 1.2. IMPRESSION: 1. Markedly elevated diaphragm with a questionable infiltrate. 2. Polypharmacy. 3. Chronic pain. PLAN: I switched her over to oral antibiotics and prednisone. DISPOSITION: Home in the next 24-48 hours.
[2016-12-07] MEDS ORDERED: Morphine IR Tab 15 MG TAB PO SCH (11:45)
[2016-12-07] MEDS: Furosemide 40 MG/4 ML VIAL SLOW IVP SCH (11:56)
[2016-12-07] MEDS: Saccharomyces boulardii 250 MG CAP PO SCH (11:56)
--- NOTE | 2016-12-07 18:20 | PDOC.PN ---
- Subjective Encounter Start Date: 12/07/16 Encounter Start Time: 11:00 Patient seen and examined. Asking for pain meds. More awake today. No overnight events - Objective MAR Reviewed: Yes Vital Signs & Weight: Vital Signs (12 hours) Temp Pulse Resp BP Pulse Ox 12/07/16 16:49 143/72 H 12/07/16 16:25 98.0 F 104 H 16 182/88 H 91 L 12/07/16 14:03 100 16 12/07/16 12:27 97.2 F L 98 17 142/96 H 92 L 12/07/16 10:43 103 H 16 12/07/16 08:54 97.2 F L 98 17 12/07/16 08:42 112 H 12/07/16 08:25 97.7 F 112 H 16 147/97 H 95 12/07/16 06:51 103 H 16 Weight Weight 160 lb 6.4 oz I&O: 12/06/16 12/07/16 12/08/16 06:59 06:59 06:59 Intake Total 1140 1245 540 Output Total 900 1400 1100 Balance 240 -155 -560 Result Diagrams: 12/08/16 06:28 12/08/16 06:28 Additional Labs: Accuchecks 12/07/16 12/07/16 12/07/16 11:28 05:36 00:06 POC Glucose 185 H 184 H 171 H EKG Reviewed by me: Yes (Tele paced) Phys Exam - Physical Examination Constitutional: NAD Respiratory: no wheezing, no rhonchi Dec AE at bases Cardiovascular: RRR, no rub Gastrointestinal: soft, non-tender, positive bowel sounds Musculoskeletal: no edema Neurological: non-focal, moves all 4 limbs Dx/Plan - Plan IMPRESSION: 1. Hypotension. The patient was orthostatic on admission, that has improved. 2. Acute kidney injury on chronic kidney disease stage 3, improved with IV fluids. 3. Status post code green for altered mentation. 4. Klebsiella urinary tract infection. 5. Chronic atrial fibrillation. Anticoagulation was discontinued on admission. 6. Chronic systolic heart failure - Cardiology following. 7. Hypertension. 8. Hyperlipidemia. 9. Hypothyroidism. 10. Chronic pain syndrome. 11. Obstructive sleep apnea. 12. Chronic anemia. 13. Right lower lobe pneumonia, suspected aspiration pneumonia PLAN: * Cont IVF due to elevated Cr/poor appetite. * One dose of Morphine IR 15 mg to prevent withdrawals * Cardiology following - Anticoag restarted * AM labs * Cont to monitor * Cont other meds as below * Antibiotic changed to PO * DC planning * Cont therapy Review of Systems - Review of Systems Respiratory: negative: Cough, Dry, Shortness of Breath, Hemoptysis, SOB with Excertion, Pleuritic Pain, Sputum, Wheezing Cardiovascular: negative: Chest Pain, Palpitations, Orthopnea, Paroxysmal Noc. Dyspnea, Edema, Light Headedness, Other Gastrointestinal: negative: Nausea, Vomiting, Abdominal Pain, Diarrhea, Constipation, Melena, Hematochezia, Other - Medications/Allergies Allergies/Adverse Reactions: Allergies Allergy/AdvReac Type Severity Reaction Status Date / Time carisoprodol Allergy Unknown Verified 12/03/16 01:09 Penicillins Allergy Unknown Verified 12/03/16 01:09 NSAIDS (Non-Steroidal Allergy Verified 12/03/16 01:48 Anti-Inflamma tizanidine [From Zanaflex] Allergy Verified 12/03/16 01:48 Medications: Current Medications Acetaminophen (Tylenol) 650 mg PO Q4H PRN PRN Reason: Headache/Fever or Pain Last Admin: 12/04/16 13:44 Dose: 650 mg Hydrocodone Bitart/Acetaminophen ([place] 5/325) 1 tab PO Q4H PRN PRN Reason: Severe Pain (7-10) Last Admin: 12/07/16 00:59 Dose: 1 tab Albuterol/Ipratropium (Duoneb) 3 ml NEB [id number] PRN PRN Reason: SOB &/or Wheezing Albuterol/Ipratropium (Duoneb) 3 ml NEB [id number] [facility] Last Admin: 12/07/16 14:03 Dose: 3 ml Apixaban (Eliquis) 5 mg PO BID [facility] Last Admin: 12/07/16 08:41 Dose: 5 mg Butalbital/Aspirin/Caffeine (Fiorinal) 1 tab PO Q4H PRN PRN Reason: Headache Carvedilol (Coreg) 50 mg PO BID [facility] Last Admin: 12/07/16 08:42 Dose: 50 mg Cefdinir (Omnicef) 300 mg PO BID [facility] Digoxin (Lanoxin) 0.125 mg PO DAILY [facility] Last Admin: 12/07/16 08:42 Dose: 0.125 mg Docusate Sodium (Colace) 100 mg PO BID [facility] Last Admin: 12/07/16 08:42 Dose: 100 mg Famotidine (Pepcid) 20 mg PO BID [facility] Last Admin: 12/07/16 08:42 Dose: 20 mg Folic Acid (Folvite) 1 mg PO DAILY [facility] Last Admin: 12/07/16 08:42 Dose: 1 mg Furosemide (Lasix) 40 mg SLOW IVP 1100 [facility] Last Admin: 12/07/16 11:56 Dose: 40 mg Gabapentin (Neurontin) 300 mg PO TID [facility] Last Admin: 12/07/16 15:42 Dose: 300 mg Hydralazine HCl (Apresoline) 10 mg SLOW IVP Q4H PRN PRN Reason: SBP Greater Than 180 Last Admin: 12/07/16 04:13 Dose: 10 mg Dextrose/Sodium Chloride (D5 0.9% Ns) 1,000 mls @ 50 mls/hr IV .Q20H [facility] Last Admin: 12/07/16 08:41 Dose: 1,000 mls Levothyroxine Sodium (Synthroid) 100 mcg PO 0600 [facility] Last Admin: 12/07/16 04:13 Dose: 100 mcg Metoclopramide HCl (Reglan) 5 mg PO ACHS [facility] Last Admin: 12/07/16 15:44 Dose: Not Given Nitroglycerin (Nitrostat) 0.4 mg PO Q5MIN PRN PRN Reason: Chest Pain Ondansetron HCl (Zofran Odt) 4 mg PO Q6H PRN PRN Reason: Nausea/Vomiting Last Admin: 12/05/16 19:15 Dose: 4 mg Prednisone (Prednisone) 20 mg PO QAM[facility] Saccharomyces Boulardii (Florastor) 250 mg PO 1200 [facility] Last Admin: 12/07/16 11:56 Dose: 250 mg Senna (Senokot) 2 tab PO HSPRN PRN PRN Reason: Constipation Sodium Chloride (Flush - Normal Saline) 10 ml IVF Q12HR [facility] Last Admin: 12/07/16 08:43 Dose: 10 ml Sodium Chloride (Flush - Normal Saline) 10 ml IVF PRN PRN PRN Reason: Saline Flush Last Admin: 12/07/16 08:43 Dose: 10 ml Sotalol HCl (Betapace) 120 mg PO BID [facility] Last Admin: 12/07/16 08:41 Dose: 120 mg
[2016-12-07] MEDS: Cefdinir 300 MG CAP PO SCH (21:17)
[2016-12-07] MEDS ORDERED: FLU VACC TS2017-18 (>65YR) 0.5 ML SYRINGE IM ONE (21:30)
[2016-12-08] MEDS: Dextrose 5 % And 0.9 % NaCl 1,000 ML IV SCH ×2 (00:32→09:52)
[2016-12-08] MEDS: HYDROcodone/Acetaminophen 5/325 mg Tablet PO PRN ×2 (04:03→17:11)
[2016-12-08] MEDS: Levothyroxine Sodium 100 MCG TAB PO SCH (05:44)
[2016-12-08 06:49] LABS: #Lymphocytes 0.7 thou/uL (1.20-3.40); #Monocytes 0.8 thou/uL (0.11-0.59); #Neutrophils 4.8 thou/uL (1.40-6.50); %Basophils 0.1 % (0.0-1.0); %Eosinophils 0.1 % (0.0-10.0); %Lymphocytes 10.7 % (21.0-51.0); %Monocytes 12.7 % (0.0-10.0); Hematocrit 28.6 % (36.0-47.0); Mean Platelet Volume 6.8 fL (7.4-10.4); Red Blood Cell (RBC) Count 3.34 mill/uL (4.20-5.40); White Blood Cell (WBC) Count 6.3 thou/uL (4.8-10.8)
[2016-12-08 07:13] LABS: Anion Gap 10 mmol/L (10-20); BUN (Urea Nitrogen) 31 mg/dL (9.8-20.1); Calc. Creatinine Clearance 49 mL/min (70-130); Calcium 9.8 mg/dL (7.8-10.44); Carbon Dioxide 32 mmol/L (23-31); Chloride 102 mmol/L (98-107); Estimated GFR-MDRD 50; Magnesium 1.6 mg/dL (1.6-2.6)
[2016-12-08] MEDS ORDERED: Potassium Chloride 10 MEQ TAB PO SCH (08:15)
[2016-12-08] MEDS: Metoclopramide HCl 10 MG/10 ML UDCUP PO SCH ×4 (08:41→23:58)
[2016-12-08] MEDS: Famotidine 20 MG TAB PO SCH ×2 (08:42→23:55)
[2016-12-08] MEDS: Cefdinir 300 MG CAP PO SCH ×2 (08:42→23:55)
[2016-12-08] MEDS: Digoxin 0.125 MG TAB PO SCH (08:43)
[2016-12-08] MEDS: Apixaban 5 MG TAB PO SCH ×2 (08:44→23:55)
[2016-12-08] MEDS: Sotalol HCl 80 MG TAB PO SCH (08:44)
[2016-12-08] MEDS: Ramipril 5 MG CAP PO SCH (08:45)
[2016-12-08] MEDS: Carvedilol 25 MG TAB PO SCH (08:46)
[2016-12-08] MEDS: Gabapentin 300 MG CAP PO SCH ×3 (08:46→23:55)
[2016-12-08] MEDS: predniSONE 20 MG TAB PO SCH (08:46)
[2016-12-08] MEDS: Docusate 100 MG CAP PO SCH ×2 (08:46→23:55)
[2016-12-08] MEDS: Folic Acid 1 MG TAB PO SCH (08:47)
--- NOTE | 2016-12-08 09:11 | PDOC.PN ---
- Subjective Encounter Start Date: 12/08/16 Encounter Start Time: 09:07 Patient seen and examined. No new complaints. No overnight events. More awake. No CP. - Objective MAR Reviewed: Yes Vital Signs & Weight: Vital Signs (12 hours) Temp Pulse Resp BP BP BP Pulse Ox 12/08/16 08:45 169/92 H 12/08/16 08:44 82 12/08/16 08:43 82 12/08/16 08:35 98.2 F 82 20 169/92 H 92 L 12/08/16 06:43 78 18 98 12/08/16 04:03 94 L 12/08/16 03:30 98.5 F 98 20 164/102 H 94 L 12/08/16 02:24 90 20 96 12/08/16 00:00 97.9 F 84 20 164/94 H 97 12/07/16 23:23 97 12/07/16 22:14 88 16 95 12/07/16 21:17 111 H 163/104 H 12/07/16 21:11 98.8 F 111 H 24 H 163/104 H 92 L 12/07/16 21:07 98.8 F 111 H 24 H 95 Weight Weight 159 lb 4.8 oz I&O: 12/07/16 12/08/16 12/09/16 06:59 06:59 06:59 Intake Total 1245 2190 Output Total 1400 1650 Balance -155 540 Result Diagrams: 12/08/16 06:28 12/08/16 06:28 Additional Labs: Accuchecks 12/07/16 12/07/16 12/07/16 23:51 11:28 05:36 POC Glucose 156 H 185 H 184 H EKG Reviewed by me: Yes (Tele paced) Phys Exam - Physical Examination Constitutional: NAD Respiratory: no wheezing, no rhonchi Cardiovascular: RRR, no rub Dec AE at bases Gastrointestinal: soft, non-tender, positive bowel sounds Musculoskeletal: no edema Neurological: non-focal, moves all 4 limbs Dx/Plan - Plan IMPRESSION: 1. Hypotension. The patient was orthostatic on admission, that has improved. 2. Acute kidney injury on chronic kidney disease stage 3, improved with IV fluids. 3. Status post code green for altered mentation this admission 4. Klebsiella urinary tract infection. 5. Chronic atrial fibrillation. Anticoagulation was discontinued on admission. restarted 12/07 6. Chronic systolic heart failure - Compensated now 7. Hypertension. 8. Hyperlipidemia. 9. Hypothyroidism. 10. Chronic pain syndrome. 11. Obstructive sleep apnea. 12. Chronic anemia. 13. ?Right lower lobe pneumonia, suspected aspiration pneumonia - on Antibiotics PLAN: * Cont IVF - reduce rate to KVO * ACEI started on today * Morphine IR 15 mg BID to prevent withdrawals * Cardiology following - Anticoag restarted - Tele dced per cardiology * PO Potassium due to low normal range(Pt on digoxin) * AM labs * Cont to monitor * Cont other meds as below * Cont PO Antibiotic * DC planning * Cont therapy Review of Systems - Review of Systems Respiratory: negative: Cough, Dry, Shortness of Breath, Hemoptysis, SOB with Excertion, Pleuritic Pain, Sputum, Wheezing Cardiovascular: negative: Chest Pain, Palpitations, Orthopnea, Paroxysmal Noc. Dyspnea, Edema, Light Headedness, Other Gastrointestinal: negative: Nausea, Vomiting, Abdominal Pain, Diarrhea, Constipation, Melena, Hematochezia, Other - Medications/Allergies Allergies/Adverse Reactions: Allergies Allergy/AdvReac Type Severity Reaction Status Date / Time carisoprodol Allergy Unknown Verified 12/03/16 01:09 Penicillins Allergy Unknown Verified 12/03/16 01:09 NSAIDS (Non-Steroidal Allergy Verified 12/03/16 01:48 Anti-Inflamma tizanidine [From Zanaflex] Allergy Verified 12/03/16 01:48 Medications: Current Medications Acetaminophen (Tylenol) 650 mg PO Q4H PRN PRN Reason: Headache/Fever or Pain Last Admin: 12/04/16 13:44 Dose: 650 mg Hydrocodone Bitart/Acetaminophen ([place] 5/325) 1 tab PO Q4H PRN PRN Reason: Severe Pain (7-10) Last Admin: 12/08/16 04:03 Dose: 1 tab Albuterol/Ipratropium (Duoneb) 3 ml NEB [id number] PRN PRN Reason: SOB &/or Wheezing Albuterol/Ipratropium (Duoneb) 3 ml NEB [id number] [facility] Last Admin: 12/08/16 06:43 Dose: 3 ml Apixaban (Eliquis) 5 mg PO BID [facility] Last Admin: 12/08/16 08:44 Dose: 5 mg Butalbital/Aspirin/Caffeine (Fiorinal) 1 tab PO Q4H PRN PRN Reason: Headache Carvedilol (Coreg) 50 mg PO BID [facility] Last Admin: 12/08/16 08:46 Dose: 50 mg Cefdinir (Omnicef) 300 mg PO BID [facility] Last Admin: 12/08/16 08:42 Dose: 300 mg Digoxin (Lanoxin) 0.125 mg PO DAILY [facility] Last Admin: 12/08/16 08:43 Dose: 0.125 mg Docusate Sodium (Colace) 100 mg PO BID [facility] Last Admin: 12/08/16 08:46 Dose: 100 mg Famotidine (Pepcid) 20 mg PO BID [facility] Last Admin: 12/08/16 08:42 Dose: 20 mg Folic Acid (Folvite) 1 mg PO DAILY [facility] Last Admin: 12/08/16 08:47 Dose: 1 mg Gabapentin (Neurontin) 300 mg PO TID [facility] Last Admin: 12/08/16 08:46 Dose: 300 mg Hydralazine HCl (Apresoline) 10 mg SLOW IVP Q4H PRN PRN Reason: SBP Greater Than 180 Last Admin: 12/07/16 04:13 Dose: 10 mg Dextrose/Sodium Chloride (D5 0.9% Ns) 1,000 mls @ 30 mls/hr IV .Q24H [facility] Levothyroxine Sodium (Synthroid) 100 mcg PO 0600 [facility] Last Admin: 12/08/16 05:44 Dose: 100 mcg Metoclopramide HCl (Reglan) 5 mg PO ACHS [facility] Last Admin: 12/08/16 08:41 Dose: Not Given Morphine Sulfate (Morphine Sulfate Ir Tab) 15 mg PO BID [facility] Nitroglycerin (Nitrostat) 0.4 mg PO Q5MIN PRN PRN Reason: Chest Pain Ondansetron HCl (Zofran Odt) 4 mg PO Q6H PRN PRN Reason: Nausea/Vomiting Last Admin: 12/05/16 19:15 Dose: 4 mg Potassium Chloride (Klor-Con 10) 10 meq PO TID-[facility] Stop: 12/08/16 17:01 Prednisone (Prednisone) 20 mg PO QAM-[facility] Last Admin: 12/08/16 08:46 Dose: 20 mg Ramipril (Altace) 5 mg PO DAILY [facility] Last Admin: 12/08/16 08:45 Dose: 5 mg Saccharomyces Boulardii (Florastor) 250 mg PO 1200 [facility] Last Admin: 12/07/16 11:56 Dose: 250 mg Senna (Senokot) 2 tab PO HSPRN PRN PRN Reason: Constipation Sodium Chloride (Flush - Normal Saline) 10 ml IVF Q12HR [facility] Last Admin: 12/08/16 08:47 Dose: 10 ml Sodium Chloride (Flush - Normal Saline) 10 ml IVF PRN PRN PRN Reason: Saline Flush Last Admin: 12/07/16 08:43 Dose: 10 ml Sotalol HCl (Betapace) 120 mg PO BID [facility] Last Admin: 12/08/16 08:44 Dose: 120 mg
--- NOTE | 2016-12-08 09:49 | PRG ---
DATE OF SERVICE: 12/08/2016 This morning she says she is better, less short of breath, but still hurting. PHYSICAL EXAMINATION: VITAL SIGNS: Blood pressure 169/92, O2 sats 92% on 3 liters. His temperature 98. CHEST: Chest with no wheezing, crackles. CARDIAC: Normal S1, normal, S2. ABDOMEN: Soft, no masses. LABORATORY DATA: White count 6000, H\T\H 9 and 28, platelet count normal. Electrolytes are normal. IMPRESSION: 1. Loculated right hemidiaphragm, questionable pneumonia. 2. Chronic obstructive pulmonary disease. 3. Deconditioning. 4. Chronic pain. PLAN: She will be discharged on oral antibiotics, follow up with her primary care physician.
[2016-12-08] MEDS: Morphine IR Tab 15 MG TAB PO SCH ×2 (09:50→23:54)
[2016-12-08] MEDS: Saccharomyces boulardii 250 MG CAP PO SCH (11:54)
[2016-12-08] MEDS: Potassium Chloride 10 MEQ TAB PO SCH ×2 (11:55→17:12)
[2016-12-08] MEDS: Acetaminophen 325 MG TAB PO PRN (15:55)
[2016-12-08] MEDS ORDERED: Melatonin 3 MG TAB PO PRN (18:18)
[2016-12-08] MEDS ORDERED: HYDROcodone/Acetaminophen 5/325 mg Tablet PO PRN (18:19)
[2016-12-08] MEDS ORDERED: Carvedilol 25 MG TAB PO SCH (18:30)
[2016-12-09] MEDS: Sotalol HCl 80 MG TAB PO SCH ×3 (00:23→20:07)
[2016-12-09] MEDS: Acetaminophen 325 MG TAB PO PRN ×2 (03:16→15:00)
[2016-12-09 05:30] LABS: Hematocrit 30.2 % (36.0-47.0)
[2016-12-09 05:43] LABS: Anion Gap 9 mmol/L (10-20); BUN (Urea Nitrogen) 21 mg/dL (9.8-20.1); Calc. Creatinine Clearance 68 mL/min (70-130); Calcium 9.5 mg/dL (7.8-10.44); Carbon Dioxide 31 mmol/L (23-31); Chloride 103 mmol/L (98-107); Estimated GFR-MDRD 73
[2016-12-09] MEDS: Levothyroxine Sodium 100 MCG TAB PO SCH (06:24)
[2016-12-09] MEDS: Dextrose 5 % And 0.9 % NaCl 1,000 ML IV SCH (06:25)
[2016-12-09] MEDS: hydrALAZINE 20 MG/ML VIAL SLOW IVP PRN ×2 (07:45→15:03)
[2016-12-09] MEDS: Metoclopramide HCl 10 MG/10 ML UDCUP PO SCH ×4 (08:15→20:08)
[2016-12-09] MEDS: predniSONE 20 MG TAB PO SCH (08:16)
[2016-12-09] MEDS: Apixaban 5 MG TAB PO SCH ×2 (08:16→20:08)
[2016-12-09] MEDS: Gabapentin 300 MG CAP PO SCH ×3 (08:16→20:08)
[2016-12-09] MEDS: Digoxin 0.125 MG TAB PO SCH (08:16)
[2016-12-09] MEDS: Cefdinir 300 MG CAP PO SCH ×2 (08:16→20:08)
[2016-12-09] MEDS: Carvedilol 25 MG TAB PO SCH ×2 (08:17→16:31)
[2016-12-09] MEDS: Morphine IR Tab 15 MG TAB PO SCH ×2 (08:17→20:07)
[2016-12-09] MEDS: Docusate 100 MG CAP PO SCH ×2 (08:18→20:06)
[2016-12-09] MEDS: Folic Acid 1 MG TAB PO SCH (08:18)
[2016-12-09] MEDS: Famotidine 20 MG TAB PO SCH ×2 (08:19→20:08)
[2016-12-09] MEDS: Ramipril 5 MG CAP PO SCH (08:24)
--- NOTE | 2016-12-09 10:25 | PRG ---
DATE OF SERVICE: 12/09/2016 Ms. Lew this morning is awake, alert, responsive. PHYSICAL EXAMINATION: VITAL SIGNS: Sats 92% on supplemental oxygen, blood pressure is slightly elevated at 200/82. CHEST: Chest reveals decreased breath sounds, no wheezing. CARDIAC: Normal S1, S2. No gallops. ABDOMEN: Soft, no masses. H\T\H is stable. Electrolytes are normal. IMPRESSION: 1. Elevated diaphragm. 2. Deconditioning. 3. Chronic pain. PLAN: From a pulmonary standpoint of view, at this stage, nothing additional to offer. Please call if needed. Continue antibiotics.
[2016-12-09] MEDS: Saccharomyces boulardii 250 MG CAP PO SCH (11:16)
--- NOTE | 2016-12-09 11:50 | PDOC.PN ---
- Subjective Encounter Start Date: 12/09/16 Encounter Start Time: 09:40 -: old records requested/rev Patient seen and examined. No new complaints. No overnight events - Objective MAR Reviewed: Yes Vital Signs & Weight: Vital Signs (12 hours) Temp Pulse Resp BP BP Pulse Ox 12/09/16 10:01 87 16 95 12/09/16 08:24 207/82 H 12/09/16 08:22 83 12/09/16 08:16 83 12/09/16 08:00 98.3 F 83 24 H 197/112 H 93 L 12/09/16 07:45 83 207/82 H 12/09/16 06:25 90 18 94 L 12/09/16 04:36 98.1 F 86 18 161/85 H 96 12/09/16 02:14 82 14 94 L 12/09/16 00:23 86 164/96 H 12/09/16 00:00 98.2 F 80 18 169/96 H 92 L Weight Weight 159 lb 4.8 oz I&O: 12/08/16 12/09/16 12/10/16 06:59 06:59 06:59 Intake Total 2190 780 Output Total 1650 350 Balance 540 430 Result Diagrams: 12/09/16 04:45 12/09/16 04:45 Additional Labs: Accuchecks 12/09/16 12/08/16 12/08/16 04:38 12:52 06:53 POC Glucose 121 H 142 H 152 H Phys Exam - Physical Examination Constitutional: NAD HEENT: PERRLA, moist MMs, sclera anicteric Neck: no JVD, supple Respiratory: no wheezing, no rales, no rhonchi Cardiovascular: RRR, no significant murmur, no rub Gastrointestinal: soft, non-tender, no distention, positive bowel sounds Musculoskeletal: no edema, pulses present Neurological: non-focal Lymphatic: no nodes Psychiatric: normal affect Skin: no rash, normal turgor Dx/Plan (1) Orthostasis Code(s): I95.1 - ORTHOSTATIC HYPOTENSION Status: Resolved Comment: (2) Right lower lobe pneumonia Code(s): J18.1 - LOBAR PNEUMONIA, UNSPECIFIED ORGANISM Status: Acute (3) UTI (urinary tract infection) Status: Acute Qualifiers: Urinary tract infection type: acute cystitis Hematuria presence: without hematuria Qualified Code(s): N30.00 - Acute cystitis without hematuria Comment: (4) Anemia, normocytic normochromic Code(s): D64.9 - ANEMIA, UNSPECIFIED Status: Chronic (5) Atrial fibrillation Code(s): I48.91 - UNSPECIFIED ATRIAL FIBRILLATION Status: Chronic Qualifiers: Atrial fibrillation type: chronic Qualified Code(s): I48.2 - Chronic atrial fibrillation (6) Chronic pain disorder Code(s): G89.4 - CHRONIC PAIN SYNDROME Status: Chronic Comment: (7) Chronic systolic CHF (congestive heart failure) Code(s): I50.22 - CHRONIC SYSTOLIC (CONGESTIVE) HEART FAILURE Status: Chronic Comment: (8) Dyslipidemia Code(s): E78.5 - HYPERLIPIDEMIA, UNSPECIFIED Status: Chronic (9) GERD (gastroesophageal reflux disease) Code(s): K21.9 - GASTRO-ESOPHAGEAL REFLUX DISEASE WITHOUT ESOPHAGITIS Status: Chronic Qualifiers: Esophagitis presence: without esophagitis Qualified Code(s): K21.9 - Gastro -esophageal reflux disease without esophagitis (10) Hypertension Code(s): I10 - ESSENTIAL (PRIMARY) HYPERTENSION Status: Chronic Qualifiers: Hypertension type: essential hypertension Qualified Code(s): I10 - Essential (primary) hypertension (11) Hypothyroidism Code(s): E03.9 - HYPOTHYROIDISM, UNSPECIFIED Status: Chronic Qualifiers: Hypothyroidism type: acquired Qualified Code(s): E03.9 - Hypothyroidism, unspecified (12) SARAI (obstructive sleep apnea) Code(s): G47.33 - OBSTRUCTIVE SLEEP APNEA (ADULT) (PEDIATRIC) Status: Chronic (13) Recurrent falls Code(s): R29.6 - REPEATED FALLS Status: Chronic Comment: (14) TARN (acute kidney injury) Code(s): N17.9 - ACUTE KIDNEY FAILURE, UNSPECIFIED Status: Resolved Comment : (15) Hypotension Status: Resolved Qualifiers: Hypotension type: hypotension due to drug Qualified Code(s): I95.2 - Hypotension due to drugs Comment: - Plan cont current plan of care, plan discussed w/ family, continue antibiotics, PT/OT , public health social worker, respiratory therapy * continue PT * wean of oxygen * discharge planning * updated plan to on phone * medication reviewed as below * symptomatic treatment * we will discharge tomorrow if stable. * orthosis, TRAN improved, will dc daily labs Review of Systems - Review of Systems ENT: negative: Ear Pain, Ear Discharge, Nose Pain, Nose Discharge, Nose Congestion, Mouth Pain, Mouth Swelling, Throat Pain, Throat Swelling, Other Respiratory: negative: Cough, Dry, Shortness of Breath, Hemoptysis, SOB with Excertion, Pleuritic Pain, Sputum, Wheezing Cardiovascular: negative: Chest Pain, Palpitations, Orthopnea, Paroxysmal Noc. Dyspnea, Edema, Light Headedness, Other Gastrointestinal: negative: Nausea, Vomiting, Abdominal Pain, Diarrhea, Constipation, Melena, Hematochezia, Other Genitourinary: negative: Dysuria, Frequency, Incontinence, Hematuria, Retention , Other Musculoskeletal: negative: Neck Pain, Shoulder Pain, Arm Pain, Back Pain, Hand Pain, Leg Pain, Foot Pain, Other - Medications/Allergies Allergies/Adverse Reactions: Allergies Allergy/AdvReac Type Severity Reaction Status Date / Time carisoprodol Allergy Unknown Verified 12/03/16 01:09 Penicillins Allergy Unknown Verified 12/03/16 01:09 NSAIDS (Non-Steroidal Allergy Verified 12/03/16 01:48 Anti-Inflamma tizanidine [From Zanaflex] Allergy Verified 12/03/16 01:48 Medications: Current Medications Acetaminophen (Tylenol) 650 mg PO Q4H PRN PRN Reason: Headache/Fever or Pain Last Admin: 12/09/16 03:16 Dose: 650 mg Albuterol/Ipratropium (Duoneb) 3 ml NEB [id number] PRN PRN Reason: SOB &/or Wheezing Albuterol/Ipratropium (Duoneb) 3 ml NEB [id number] [facility] Last Admin: 12/09/16 10:01 Dose: 3 ml Apixaban (Eliquis) 5 mg PO BID [facility] Last Admin: 12/09/16 08:16 Dose: 5 mg Butalbital/Aspirin/Caffeine (Fiorinal) 1 tab PO Q4H PRN PRN Reason: Headache Carvedilol (Coreg) 50 mg PO BID-[facility] Last Admin: 12/09/16 08:17 Dose: 50 mg Cefdinir (Omnicef) 300 mg PO BID [facility] Last Admin: 12/09/16 08:16 Dose: 300 mg Digoxin (Lanoxin) 0.125 mg PO DAILY [facility] Last Admin: 12/09/16 08:16 Dose: 0.125 mg Docusate Sodium (Colace) 100 mg PO BID [facility] Last Admin: 12/09/16 08:18 Dose: 100 mg Famotidine (Pepcid) 20 mg PO BID [facility] Last Admin: 12/09/16 08:19 Dose: 20 mg Folic Acid (Folvite) 1 mg PO DAILY [facility] Last Admin: 12/09/16 08:18 Dose: 1 mg Gabapentin (Neurontin) 300 mg PO TID [facility] Last Admin: 12/09/16 08:16 Dose: 300 mg Hydralazine HCl (Apresoline) 10 mg SLOW IVP Q4H PRN PRN Reason: SBP Greater Than 180 Last Admin: 12/09/16 07:45 Dose: 10 mg Hydralazine HCl (Apresoline) 5 mg SLOW IVP Q4H PRN PRN Reason: SBP GREATER THAN 160 Levothyroxine Sodium (Synthroid) 100 mcg PO 0600 [facility] Last Admin: 12/09/16 06:24 Dose: 100 mcg Melatonin (Melatonin) 3 mg PO HS PRN PRN Reason: Insomnia Metoclopramide HCl (Reglan) 5 mg PO ACHS [facility] Last Admin: 12/09/16 11:00 Dose: Not Given Morphine Sulfate (Morphine Sulfate Ir Tab) 15 mg PO BID [facility] Last Admin: 12/09/16 08:17 Dose: 15 mg Nitroglycerin (Nitrostat) 0.4 mg PO Q5MIN PRN PRN Reason: Chest Pain Ondansetron HCl (Zofran Odt) 4 mg PO Q6H PRN PRN Reason: Nausea/Vomiting Last Admin: 12/05/16 19:15 Dose: 4 mg Prednisone (Prednisone) 20 mg PO QAM-WM [facility] Last Admin: 12/09/16 08:16 Dose: 20 mg Ramipril (Altace) 5 mg PO DAILY [facility] Last Admin: 12/09/16 08:24 Dose: 5 mg Saccharomyces Boulardii (Florastor) 250 mg PO 1200 [facility] Last Admin: 12/09/16 11:16 Dose: 250 mg Senna (Senokot) 2 tab PO HSPRN PRN PRN Reason: Constipation Sodium Chloride (Flush - Normal Saline) 10 ml IVF Q12HR [facility] Last Admin: 12/09/16 08:20 Dose: Not Given Sodium Chloride (Flush - Normal Saline) 10 ml IVF PRN PRN PRN Reason: Saline Flush Last Admin: 12/07/16 08:43 Dose: 10 ml Sotalol HCl (Betapace) 120 mg PO BID [facility] Last Admin: 12/09/16 08:22 Dose: 120 mg
[2016-12-09 14:36] VITALS: BMI 26.5
[2016-12-09] MEDS: Fiorinal 325/50/40 mg Tablet PO PRN (17:53)
[2016-12-09] MEDS: Fluticasone Propionate Nasal Spray 16 gm Bottle NASAL SCH (20:58)
[2016-12-10] MEDS: hydrALAZINE 20 MG/ML VIAL SLOW IVP PRN (03:29)
[2016-12-10] MEDS: Sodium Chloride 0.65% Nasal 44 ML BOT EA NARE PRN ×2 (03:30→13:16)
[2016-12-10] MEDS: Acetaminophen 325 MG TAB PO PRN (03:30)
[2016-12-10] MEDS: Levothyroxine Sodium 100 MCG TAB PO SCH (06:08)
[2016-12-10] MEDS: Cefdinir 300 MG CAP PO SCH ×2 (08:45→20:38)
[2016-12-10] MEDS: Gabapentin 300 MG CAP PO SCH ×3 (08:45→20:38)
[2016-12-10] MEDS: Digoxin 0.125 MG TAB PO SCH (08:46)
[2016-12-10] MEDS: Morphine IR Tab 15 MG TAB PO SCH ×2 (08:47→20:41)
[2016-12-10] MEDS: Famotidine 20 MG TAB PO SCH ×2 (08:47→20:38)
[2016-12-10] MEDS: Sotalol HCl 80 MG TAB PO SCH ×2 (08:48→20:39)
[2016-12-10] MEDS: Carvedilol 25 MG TAB PO SCH ×2 (08:48→16:11)
[2016-12-10] MEDS: Folic Acid 1 MG TAB PO SCH (08:48)
[2016-12-10] MEDS: Apixaban 5 MG TAB PO SCH ×2 (08:48→20:39)
[2016-12-10] MEDS: Docusate 100 MG CAP PO SCH ×2 (08:48→20:38)
[2016-12-10] MEDS: predniSONE 20 MG TAB PO SCH (08:50)
[2016-12-10] MEDS: Ramipril 5 MG CAP PO SCH (08:50)
[2016-12-10] MEDS: Metoclopramide HCl 10 MG/10 ML UDCUP PO SCH ×4 (08:50→20:46)
[2016-12-10] MEDS: Fluticasone Propionate Nasal Spray 16 gm Bottle NASAL SCH ×2 (08:52→20:41)
--- NOTE | 2016-12-10 11:38 | PDOC.PN ---
- Subjective Encounter Start Date: 12/10/16 Encounter Start Time: 09:40 Patient seen and examined. No new complaints. No overnight events - Objective MAR Reviewed: Yes Vital Signs & Weight: Vital Signs (12 hours) Temp Pulse Resp BP BP Pulse Ox 12/10/16 10:05 90 16 93 L 12/10/16 08:50 174/121 H 12/10/16 08:48 90 174/121 H 12/10/16 08:46 90 12/10/16 07:26 98.3 F 90 18 167/91 H 93 L 12/10/16 06:17 94 L 12/10/16 06:15 91 16 94 L 12/10/16 04:42 154/78 H 12/10/16 04:07 98.1 F 78 20 188/104 H 94 L 12/10/16 03:29 78 188/104 H 12/10/16 00:00 98.2 F 80 12 161/76 H 93 L Weight Admit Weight 157 lb 3.2 oz Weight 159 lb 4.8 oz I&O: 12/09/16 12/10/16 12/11/16 06:59 06:59 06:59 Intake Total 780 Output Total 350 Balance 430 Result Diagrams: 12/09/16 04:45 12/09/16 04:45 Additional Labs: Accuchecks 12/10/16 12/09/16 12/09/16 05:31 23:52 19:31 POC Glucose 120 H 107 123 H 12/09/16 12/09/16 16:24 11:40 POC Glucose 161 H 143 H Phys Exam - Physical Examination Constitutional: NAD HEENT: PERRLA, moist MMs, sclera anicteric Neck: no JVD, supple Respiratory: no wheezing, no rales, no rhonchi Cardiovascular: RRR, no significant murmur, no rub Gastrointestinal: soft, non-tender, no distention, positive bowel sounds Musculoskeletal: no edema, pulses present Neurological: non-focal, normal sensation Lymphatic: no nodes Psychiatric: normal affect Skin: no rash, normal turgor Dx/Plan (1) Orthostasis Code(s): I95.1 - ORTHOSTATIC HYPOTENSION Status: Resolved Comment: (2) Right lower lobe pneumonia Code(s): J18.1 - LOBAR PNEUMONIA, UNSPECIFIED ORGANISM Status: Acute (3) UTI (urinary tract infection) Status: Acute Qualifiers: Urinary tract infection type: acute cystitis Hematuria presence: without hematuria Qualified Code(s): N30.00 - Acute cystitis without hematuria Comment: (4) Anemia, normocytic normochromic Code(s): D64.9 - ANEMIA, UNSPECIFIED Status: Chronic (5) Atrial fibrillation Code(s): I48.91 - UNSPECIFIED ATRIAL FIBRILLATION Status: Chronic Qualifiers: Atrial fibrillation type: chronic Qualified Code(s): I48.2 - Chronic atrial fibrillation (6) Chronic pain disorder Code(s): G89.4 - CHRONIC PAIN SYNDROME Status: Chronic Comment: (7) Chronic systolic CHF (congestive heart failure) Code(s): I50.22 - CHRONIC SYSTOLIC (CONGESTIVE) HEART FAILURE Status: Chronic Comment: (8) Dyslipidemia Code(s): E78.5 - HYPERLIPIDEMIA, UNSPECIFIED Status: Chronic (9) GERD (gastroesophageal reflux disease) Code(s): K21.9 - GASTRO-ESOPHAGEAL REFLUX DISEASE WITHOUT ESOPHAGITIS Status: Chronic Qualifiers: Esophagitis presence: without esophagitis Qualified Code(s): K21.9 - Gastro -esophageal reflux disease without esophagitis (10) Hypertension Code(s): I10 - ESSENTIAL (PRIMARY) HYPERTENSION Status: Chronic Qualifiers: Hypertension type: essential hypertension Qualified Code(s): I10 - Essential (primary) hypertension (11) Hypothyroidism Code(s): E03.9 - HYPOTHYROIDISM, UNSPECIFIED Status: Chronic Qualifiers: Hypothyroidism type: acquired Qualified Code(s): E03.9 - Hypothyroidism, unspecified (12) SARAI (obstructive sleep apnea) Code(s): G47.33 - OBSTRUCTIVE SLEEP APNEA (ADULT) (PEDIATRIC) Status: Chronic (13) Recurrent falls Code(s): R29.6 - REPEATED FALLS Status: Chronic Comment: (14) TRAN (acute kidney injury) Code(s): N17.9 - ACUTE KIDNEY FAILURE, UNSPECIFIED Status: Resolved Comment : (15) Hypotension Status: Resolved Qualifiers: Hypotension type: hypotension due to drug Qualified Code(s): I95.2 - Hypotension due to drugs Comment: - Plan cont current plan of care, plan discussed w/ family, continue antibiotics, PT/OT , delinquency prevention social worker * pt's prefer her to go to SNU before home * medication reviewed as below * symptomatic treatment * await placement * needs more PT * medically stable with current treatment. Review of Systems - Review of Systems ENT: negative: Ear Pain, Ear Discharge, Nose Pain, Nose Discharge, Nose Congestion, Mouth Pain, Mouth Swelling, Throat Pain, Throat Swelling, Other Respiratory: negative: Cough, Dry, Shortness of Breath, Hemoptysis, SOB with Excertion, Pleuritic Pain, Sputum, Wheezing Cardiovascular: negative: Chest Pain, Palpitations, Orthopnea, Paroxysmal Noc. Dyspnea, Edema, Light Headedness, Other Gastrointestinal: negative: Nausea, Vomiting, Abdominal Pain, Diarrhea, Constipation, Melena, Hematochezia, Other Genitourinary: negative: Dysuria, Frequency, Incontinence, Hematuria, Retention , Other Musculoskeletal: negative: Neck Pain, Shoulder Pain, Arm Pain, Back Pain, Hand Pain, Leg Pain, Foot Pain, Other - Medications/Allergies Allergies/Adverse Reactions: Allergies Allergy/AdvReac Type Severity Reaction Status Date / Time carisoprodol Allergy Unknown Verified 12/03/16 01:09 Penicillins Allergy Unknown Verified 12/03/16 01:09 NSAIDS (Non-Steroidal Allergy Verified 12/03/16 01:48 Anti-Inflamma tizanidine [From Zanaflex] Allergy Verified 12/03/16 01:48 Medications: Current Medications Acetaminophen (Tylenol) 650 mg PO Q4H PRN PRN Reason: Headache/Fever or Pain Last Admin: 12/10/16 03:30 Dose: 650 mg Albuterol/Ipratropium (Duoneb) 3 ml NEB [id number] PRN PRN Reason: SOB &/or Wheezing Albuterol/Ipratropium (Duoneb) 3 ml NEB [id number] [facility] Last Admin: 12/10/16 10:05 Dose: 3 ml Apixaban (Eliquis) 5 mg PO BID [facility] Last Admin: 12/10/16 08:48 Dose: 5 mg Butalbital/Aspirin/Caffeine (Fiorinal) 1 tab PO Q4H PRN PRN Reason: Headache Last Admin: 12/09/16 17:53 Dose: 1 tab Carvedilol (Coreg) 50 mg PO BID[facility] Last Admin: 12/10/16 08:48 Dose: 50 mg Cefdinir (Omnicef) 300 mg PO BID [facility] Last Admin: 12/10/16 08:45 Dose: 300 mg Digoxin (Lanoxin) 0.125 mg PO DAILY [facility] Last Admin: 12/10/16 08:46 Dose: 0.125 mg Docusate Sodium (Colace) 100 mg PO BID [facility] Last Admin: 12/10/16 08:48 Dose: 100 mg Famotidine (Pepcid) 20 mg PO BID [facility] Last Admin: 12/10/16 08:47 Dose: 20 mg Fluticasone Propionate (Flonase Nasal [place]) 0 gm NASAL BID [facility] Last Admin: 12/10/16 08:52 Dose: 1 spr Folic Acid (Folvite) 1 mg PO DAILY [facility] Last Admin: 12/10/16 08:48 Dose: 1 mg Gabapentin (Neurontin) 300 mg PO TID [facility] Last Admin: 12/10/16 08:45 Dose: 300 mg Hydralazine HCl (Apresoline) 10 mg SLOW IVP Q4H PRN PRN Reason: SBP Greater Than 180 Last Admin: 12/09/16 07:45 Dose: 10 mg Hydralazine HCl (Apresoline) 5 mg SLOW IVP Q4H PRN PRN Reason: SBP GREATER THAN 160 Last Admin: 12/10/16 03:29 Dose: 5 mg Levothyroxine Sodium (Synthroid) 100 mcg PO 0600 [facility] Last Admin: 12/10/16 06:08 Dose: 100 mcg Melatonin (Melatonin) 3 mg PO HS PRN PRN Reason: Insomnia Metoclopramide HCl (Reglan) 5 mg PO ACHS [facility] Last Admin: 12/10/16 08:50 Dose: Not Given Morphine Sulfate (Morphine Sulfate Ir Tab) 15 mg PO BID [facility] Last Admin: 12/10/16 08:47 Dose: 15 mg Nitroglycerin (Nitrostat) 0.4 mg PO Q5MIN PRN PRN Reason: Chest Pain Ondansetron HCl (Zofran Odt) 4 mg PO Q6H PRN PRN Reason: Nausea/Vomiting Last Admin: 12/05/16 19:15 Dose: 4 mg Prednisone (Prednisone) 20 mg PO QAM-WM [facility] Last Admin: 12/10/16 08:50 Dose: 20 mg Ramipril (Altace) 5 mg PO DAILY [facility] Last Admin: 12/10/16 08:50 Dose: 5 mg Saccharomyces Boulardii (Florastor) 250 mg PO 1200 [facility] Last Admin: 12/09/16 11:16 Dose: 250 mg Senna (Senokot) 2 tab PO HSPRN PRN PRN Reason: Constipation Sodium Chloride (Flush - Normal Saline) 10 ml IVF Q12HR [facility] Last Admin: 12/09/16 20:09 Dose: 10 ml Sodium Chloride (Flush - Normal Saline) 10 ml IVF PRN PRN PRN Reason: Saline Flush Last Admin: 12/07/16 08:43 Dose: 10 ml Sodium Chloride ([place] Nasal [place] 0.65%) 0 ml EA NARE Q4H PRN PRN Reason: Nasal Dryness Last Admin: 12/10/16 03:30 Dose: 2 sprays Sotalol HCl (Betapace) 120 mg PO BID [facility] Last Admin: 12/10/16 08:48 Dose: 120 mg
[2016-12-10] MEDS: Saccharomyces boulardii 250 MG CAP PO SCH (12:56)
--- NOTE | 2016-12-10 18:23 | PDOC.CTH ---
Cardiology Progress Note - Subjective No new issues. - Objective Vital Signs Temp Pulse Resp BP BP BP BP 12/10/16 16:18 98.0 F 79 20 165/100 H 12/10/16 14:18 88 18 12/10/16 11:46 98.0 F 87 18 155/78 H 12/10/16 10:05 90 16 12/10/16 09:25 98.3 F 90 16 12/10/16 08:50 174/121 H 12/10/16 08:48 90 174/121 H 12/10/16 08:46 90 12/10/16 08:30 180/104 H 179/85 H 12/10/16 07:26 98.3 F 90 18 167/91 H Pulse Ox 12/10/16 16:18 96 12/10/16 14:18 94 L 12/10/16 11:46 90 L 12/10/16 10:05 93 L 12/10/16 09:25 94 L 12/10/16 08:50 12/10/16 08:48 12/10/16 08:46 12/10/16 08:30 12/10/16 07:26 93 L Admit Weight 157 lb 3.2 oz Weight 159 lb 4.8 oz 12/09/16 12/10/16 12/11/16 06:59 06:59 06:59 Intake Total 780 Output Total 350 Balance 430 - Physical Examination General/Neuro: NAD Neck: no JVD present Lungs: unlabored respirations Heart: other: (Irreg) Abdomen: NT/ND Extremities: other: (no edema.) - Labs Result Diagrams: 12/09/16 04:45 12/09/16 04:45 Troponin/CKMB CK-MB (CK-2) 1.3 ng/mL (0-6.6) 12/02/16 15:40 Troponin I Less than 0.010 ng/mL (< 0.028) 12/02/16 15:40 - Assessment/Plan 1. Chronic afib, rate controlled. 2. RLL pneumonia PLAN: - Continue rate control. - Aspirin alone for stroke prophylaxis due to risk of falls.
[2016-12-11] MEDS: Levothyroxine Sodium 100 MCG TAB PO SCH (05:41)
[2016-12-11] MEDS: predniSONE 20 MG TAB PO SCH (09:17)
[2016-12-11] MEDS: Carvedilol 25 MG TAB PO SCH ×2 (09:17→18:00)
[2016-12-11] MEDS: Apixaban 5 MG TAB PO SCH ×2 (09:18→20:24)
[2016-12-11] MEDS: Cefdinir 300 MG CAP PO SCH ×2 (09:18→20:24)
[2016-12-11] MEDS: Famotidine 20 MG TAB PO SCH ×2 (09:19→20:24)
[2016-12-11] MEDS: Docusate 100 MG CAP PO SCH ×2 (09:19→20:24)
[2016-12-11] MEDS: Digoxin 0.125 MG TAB PO SCH (09:19)
[2016-12-11] MEDS: Sodium Chloride 0.65% Nasal 44 ML BOT EA NARE PRN (09:20)
[2016-12-11] MEDS: Ramipril 5 MG CAP PO SCH (09:21)
[2016-12-11] MEDS: Gabapentin 300 MG CAP PO SCH ×3 (09:21→20:24)
[2016-12-11] MEDS: Folic Acid 1 MG TAB PO SCH (09:21)
[2016-12-11] MEDS: Sotalol HCl 80 MG TAB PO SCH ×2 (09:21→20:25)
[2016-12-11] MEDS: Fluticasone Propionate Nasal Spray 16 gm Bottle NASAL SCH ×2 (09:23→20:25)
[2016-12-11] MEDS: Morphine IR Tab 15 MG TAB PO SCH ×2 (09:23→22:12)
[2016-12-11] MEDS: Metoclopramide HCl 10 MG/10 ML UDCUP PO SCH ×4 (10:05→20:26)
--- NOTE | 2016-12-11 11:59 | PDOC.PN ---
- Subjective Encounter Start Date: 12/11/16 Encounter Start Time: 08:15 Patient seen and examined. No new complaints. No overnight events - Objective MAR Reviewed: Yes Vital Signs & Weight: Vital Signs (12 hours) Temp Pulse Resp BP BP BP Pulse Ox 12/11/16 11:04 74 16 94 L 12/11/16 09:21 78 150/83 H 12/11/16 09:19 78 12/11/16 08:07 98.7 F 78 18 152/81 H 86 L 12/11/16 08:00 98.7 F 78 18 94 L 12/11/16 06:11 84 16 98 12/11/16 06:00 98 12/11/16 04:51 99.4 F 71 16 150/84 H 98 12/11/16 00:00 98.4 F 70 16 157/87 H 97 Weight Admit Weight 157 lb 3.2 oz Weight 159 lb 4.8 oz I&O: 12/10/16 12/11/16 12/12/16 06:59 06:59 06:59 Intake Total 1170 450 Balance 1170 450 Result Diagrams: 12/09/16 04:45 12/09/16 04:45 Additional Labs: Accuchecks 12/11/16 12/11/16 12/10/16 10:59 04:49 19:55 POC Glucose 149 H 164 H 177 H 12/10/16 15:55 POC Glucose 142 H Phys Exam - Physical Examination Constitutional: NAD HEENT: PERRLA, moist MMs, sclera anicteric Neck: no JVD, supple Respiratory: no wheezing, no rales, no rhonchi Cardiovascular: RRR, no significant murmur, no rub Gastrointestinal: soft, non-tender, no distention, positive bowel sounds Musculoskeletal: no edema, pulses present Neurological: non-focal, normal sensation, moves all 4 limbs Psychiatric: normal affect Skin: no rash, normal turgor Dx/Plan (1) Orthostasis Code(s): I95.1 - ORTHOSTATIC HYPOTENSION Status: Resolved Comment: (2) Right lower lobe pneumonia Code(s): J18.1 - LOBAR PNEUMONIA, UNSPECIFIED ORGANISM Status: Acute (3) UTI (urinary tract infection) Status: Acute Qualifiers: Urinary tract infection type: acute cystitis Hematuria presence: without hematuria Qualified Code(s): N30.00 - Acute cystitis without hematuria Comment: (4) Anemia, normocytic normochromic Code(s): D64.9 - ANEMIA, UNSPECIFIED Status: Chronic (5) Atrial fibrillation Code(s): I48.91 - UNSPECIFIED ATRIAL FIBRILLATION Status: Chronic Qualifiers: Atrial fibrillation type: chronic Qualified Code(s): I48.2 - Chronic atrial fibrillation (6) Chronic pain disorder Code(s): G89.4 - CHRONIC PAIN SYNDROME Status: Chronic Comment: (7) Chronic systolic CHF (congestive heart failure) Code(s): I50.22 - CHRONIC SYSTOLIC (CONGESTIVE) HEART FAILURE Status: Chronic Comment: (8) Dyslipidemia Code(s): E78.5 - HYPERLIPIDEMIA, UNSPECIFIED Status: Chronic (9) GERD (gastroesophageal reflux disease) Code(s): K21.9 - GASTRO-ESOPHAGEAL REFLUX DISEASE WITHOUT ESOPHAGITIS Status: Chronic Qualifiers: Esophagitis presence: without esophagitis Qualified Code(s): K21.9 - Gastro -esophageal reflux disease without esophagitis (10) Hypertension Code(s): I10 - ESSENTIAL (PRIMARY) HYPERTENSION Status: Chronic Qualifiers: Hypertension type: essential hypertension Qualified Code(s): I10 - Essential (primary) hypertension (11) Hypothyroidism Code(s): E03.9 - HYPOTHYROIDISM, UNSPECIFIED Status: Chronic Qualifiers: Hypothyroidism type: acquired Qualified Code(s): E03.9 - Hypothyroidism, unspecified (12) SARAI (obstructive sleep apnea) Code(s): G47.33 - OBSTRUCTIVE SLEEP APNEA (ADULT) (PEDIATRIC) Status: Chronic (13) Recurrent falls Code(s): R29.6 - REPEATED FALLS Status: Chronic Comment: (14) TRAN (acute kidney injury) Code(s): N17.9 - ACUTE KIDNEY FAILURE, UNSPECIFIED Status: Resolved Comment : (15) Hypotension Status: Resolved Qualifiers: Hypotension type: hypotension due to drug Qualified Code(s): I95.2 - Hypotension due to drugs Comment: - Plan cont current plan of care, continue antibiotics, manager social services, respiratory therapy * medication reviewed as below * symptomatic treatment * continue omnicef * await placement to SNU * paper work done for discharge * medically stable. Review of Systems - Review of Systems ENT: negative: Ear Pain, Ear Discharge, Nose Pain, Nose Discharge, Nose Congestion, Mouth Pain, Mouth Swelling, Throat Pain, Throat Swelling, Other Respiratory: negative: Cough, Dry, Shortness of Breath, Hemoptysis, SOB with Excertion, Pleuritic Pain, Sputum, Wheezing Cardiovascular: negative: Chest Pain, Palpitations, Orthopnea, Paroxysmal Noc. Dyspnea, Edema, Light Headedness, Other Gastrointestinal: negative: Nausea, Vomiting, Abdominal Pain, Diarrhea, Constipation, Melena, Hematochezia, Other Genitourinary: negative: Dysuria, Frequency, Incontinence, Hematuria, Retention , Other Musculoskeletal: negative: Neck Pain, Shoulder Pain, Arm Pain, Back Pain, Hand Pain, Leg Pain, Foot Pain, Other - Medications/Allergies Allergies/Adverse Reactions: Allergies Allergy/AdvReac Type Severity Reaction Status Date / Time carisoprodol Allergy Unknown Verified 12/03/16 01:09 Penicillins Allergy Unknown Verified 12/03/16 01:09 NSAIDS (Non-Steroidal Allergy Verified 12/03/16 01:48 Anti-Inflamma tizanidine [From Zanaflex] Allergy Verified 12/03/16 01:48 Medications: Current Medications Acetaminophen (Tylenol) 650 mg PO Q4H PRN PRN Reason: Headache/Fever or Pain Last Admin: 12/10/16 03:30 Dose: 650 mg Albuterol/Ipratropium (Duoneb) 3 ml NEB [id number] PRN PRN Reason: SOB &/or Wheezing Albuterol/Ipratropium (Duoneb) 3 ml NEB [id number] Last Admin: 12/11/16 11:04 Dose: 3 ml Apixaban (Eliquis) 5 mg PO BID [facility] Last Admin: 12/11/16 09:18 Dose: 5 mg Butalbital/Aspirin/Caffeine (Fiorinal) 1 tab PO Q4H PRN PRN Reason: Headache Last Admin: 12/09/16 17:53 Dose: 1 tab Carvedilol (Coreg) 50 mg PO BID-[facility] Last Admin: 12/11/16 09:17 Dose: 50 mg Cefdinir (Omnicef) 300 mg PO BID [facility] Last Admin: 12/11/16 09:18 Dose: 300 mg Digoxin (Lanoxin) 0.125 mg PO DAILY [facility] Last Admin: 12/11/16 09:19 Dose: 0.125 mg Docusate Sodium (Colace) 100 mg PO BID [facility] Last Admin: 12/11/16 09:19 Dose: 100 mg Famotidine (Pepcid) 20 mg PO BID [facility] Last Admin: 12/11/16 09:19 Dose: 20 mg Fluticasone Propionate (Flonase Nasal [place]) 0 gm NASAL BID [facility] Last Admin: 12/11/16 09:23 Dose: 2 spr Folic Acid (Folvite) 1 mg PO DAILY [facility] Last Admin: 12/11/16 09:21 Dose: 1 mg Gabapentin (Neurontin) 300 mg PO TID [facility] Last Admin: 12/11/16 09:21 Dose: 300 mg Hydralazine HCl (Apresoline) 10 mg SLOW IVP Q4H PRN PRN Reason: SBP Greater Than 180 Last Admin: 12/09/16 07:45 Dose: 10 mg Hydralazine HCl (Apresoline) 5 mg SLOW IVP Q4H PRN PRN Reason: SBP GREATER THAN 160 Last Admin: 12/10/16 03:29 Dose: 5 mg Levothyroxine Sodium (Synthroid) 100 mcg PO 0600 [facility] Last Admin: 12/11/16 05:41 Dose: 100 mcg Melatonin (Melatonin) 3 mg PO HS PRN PRN Reason: Insomnia Metoclopramide HCl (Reglan) 5 mg PO ACHS [facility] Last Admin: 12/11/16 10:05 Dose: Not Given Morphine Sulfate (Morphine Sulfate Ir Tab) 15 mg PO BID [facility] Last Admin: 12/11/16 09:23 Dose: 15 mg Nitroglycerin (Nitrostat) 0.4 mg PO Q5MIN PRN PRN Reason: Chest Pain Ondansetron HCl (Zofran Odt) 4 mg PO Q6H PRN PRN Reason: Nausea/Vomiting Last Admin: 12/05/16 19:15 Dose: 4 mg Prednisone (Prednisone) 20 mg PO QAM-WM [facility] Last Admin: 12/11/16 09:17 Dose: 20 mg Ramipril (Altace) 5 mg PO DAILY [facility] Last Admin: 12/11/16 09:21 Dose: 5 mg Saccharomyces Boulardii (Florastor) 250 mg PO 1200 [facility] Last Admin: 12/10/16 12:56 Dose: 250 mg Senna (Senokot) 2 tab PO HSPRN PRN PRN Reason: Constipation Sodium Chloride (Flush - Normal Saline) 10 ml IVF Q12HR [facility] Last Admin: 12/11/16 09:27 Dose: 10 ml Sodium Chloride (Flush - Normal Saline) 10 ml IVF PRN PRN PRN Reason: Saline Flush Last Admin: 12/07/16 08:43 Dose: 10 ml Sodium Chloride ([place] Nasal [place] 0.65%) 0 ml EA NARE Q4H PRN PRN Reason: Nasal Dryness Last Admin: 12/11/16 09:20 Dose: 2 sprays Sotalol HCl (Betapace) 120 mg PO BID [facility] Last Admin: 12/11/16 09:21 Dose: 120 mg
[2016-12-11] MEDS: Saccharomyces boulardii 250 MG CAP PO SCH (12:55)
[2016-12-11] MEDS: Fiorinal 325/50/40 mg Tablet PO PRN (13:49)
--- NOTE | 2016-12-11 17:08 | PDOC.CTH ---
Cardiology Progress Note - Subjective Doing well. No new issues. - Objective Vital Signs Temp Pulse Resp BP BP Pulse Ox 12/11/16 14:24 84 18 93 L 12/11/16 11:04 74 16 94 L 12/11/16 09:21 78 150/83 H 12/11/16 09:19 78 12/11/16 08:07 98.7 F 78 18 152/81 H 86 L 12/11/16 08:00 98.7 F 78 18 94 L 12/11/16 06:11 84 16 98 12/11/16 06:00 98 Admit Weight 157 lb 3.2 oz Weight 159 lb 4.8 oz 12/10/16 12/11/16 12/12/16 06:59 06:59 06:59 Intake Total 1170 690 Balance 1170 690 - Physical Examination General/Neuro: alert & oriented x3, NAD Neck: no JVD present Lungs: unlabored respirations Heart: other: (irreg) Abdomen: NT/ND Extremities: other: (no edema) - Labs Result Diagrams: 12/09/16 04:45 12/09/16 04:45 Troponin/CKMB CK-MB (CK-2) 1.3 ng/mL (0-6.6) 12/02/16 15:40 Troponin I Less than 0.010 ng/mL (< 0.028) 12/02/16 15:40 - Assessment/Plan 1. Chronic afib, rate controlled. 2. RLL pneumonia PLAN: - Continue rate control. - Aspirin alone for stroke prophylaxis due to risk of falls.
--- OUTSIDE RECORDS SUMMARY | 2016-12-11 17:43 | XMS | Clinical Summary ---
:1935 Author Organization [facility] Address [address] [place] [address] Phone Care Team Providers Name Role Phone , Primary Care Provider Unavailable Allergies Not on File Current Medications Not on file Active Problems Not on file Social History Tobacco Use Types Packs/Day Years Used Date Never Assessed Sex Assigned at Date Recorded Not on file Last Filed Vital Signs Not on file Plan of Treatment Not on file Results Not on filefrom Last 3 Months
[2016-12-12] MEDS: Levothyroxine Sodium 100 MCG TAB PO SCH (05:41)
[2016-12-12] MEDS: Metoclopramide HCl 10 MG/10 ML UDCUP PO SCH ×2 (07:44→12:17)
[2016-12-12] MEDS: Fluticasone Propionate Nasal Spray 16 gm Bottle NASAL SCH (07:46)
[2016-12-12] MEDS: predniSONE 20 MG TAB PO SCH (07:47)
[2016-12-12] MEDS: Cefdinir 300 MG CAP PO SCH (07:47)
[2016-12-12] MEDS: Digoxin 0.125 MG TAB PO SCH (07:47)
[2016-12-12] MEDS: Sotalol HCl 80 MG TAB PO SCH (07:47)
[2016-12-12] MEDS: Gabapentin 300 MG CAP PO SCH ×2 (07:47→15:11)
[2016-12-12] MEDS: Carvedilol 25 MG TAB PO SCH (07:48)
[2016-12-12] MEDS: Docusate 100 MG CAP PO SCH (07:48)
[2016-12-12] MEDS: Folic Acid 1 MG TAB PO SCH (07:48)
[2016-12-12] MEDS: Apixaban 5 MG TAB PO SCH (07:48)
[2016-12-12] MEDS: Ramipril 5 MG CAP PO SCH (07:48)
[2016-12-12] MEDS: Famotidine 20 MG TAB PO SCH (07:49)
[2016-12-12] MEDS: Morphine IR Tab 15 MG TAB PO SCH (07:49)
[2016-12-12] MEDS ORDERED: Levothyroxine Sodium 100 MCG TAB PO SCH (10:25)
--- NOTE | 2016-12-12 10:27 | PDOC.PN ---
- Subjective Encounter Start Date: 12/12/16 Encounter Start Time: 10:26 Subjective: wants to go home.refuses rehab placement -: denies any CP/SOB/cough.no F/C - Objective MAR Reviewed: Yes Vital Signs & Weight: Vital Signs (12 hours) Temp Pulse Resp BP BP BP Pulse Ox 12/12/16 08:00 98.5 F 69 18 185/107 H 91 L 12/12/16 07:55 72 20 92 L 12/12/16 07:48 185/107 H 12/12/16 07:47 78 185/107 H 12/12/16 04:00 98.1 F 67 18 181/80 H 92 L 12/12/16 02:28 92 L 12/12/16 00:00 98.9 F 78 18 167/93 H 93 L Weight Admit Weight 157 lb 3.2 oz Weight 159 lb 4.8 oz I&O: 12/11/16 12/12/16 12/13/16 06:59 06:59 06:59 Intake Total 1170 1580 Balance 1170 1580 Result Diagrams: 12/09/16 04:45 12/09/16 04:45 Additional Labs: Accuchecks 12/12/16 12/11/16 12/11/16 04:33 19:44 16:31 POC Glucose 129 H 146 H 151 H 12/11/16 10:59 POC Glucose 149 H Microbiology 12/02/16 16:01 Urine Straight Catheter Urine Culture - Final Klebsiella pneumoniae ssp pneu 12/02/16 15:45 Venous blood - Left Foot Blood Culture - Final NO GROWTH IN 5 DAYS 12/02/16 15:40 Venous blood - Right Foot Blood Culture - Final NO GROWTH IN 5 DAYS Laboratory Tests 12/02/16 12/02/16 12/02/16 15:40 15:40 15:40 Creatinine 2.01 H Lactic Acid Ammonia Troponin I Less than 0.010 B-Natriuretic Peptide 855.3 H TSH 3rd Generation 12/02/16 12/03/16 12/04/16 15:40 05:25 09:11 Creatinine 2.32 H 1.06 Lactic Acid 1.0 Ammonia Troponin I B-Natriuretic Peptide TSH 3rd Generation 12/06/16 12/07/16 12/07/16 05:56 04:21 04:21 Creatinine 0.85 1.21 H Lactic Acid Ammonia Troponin I B-Natriuretic Peptide TSH 3rd Generation 0.2654 L 12/07/16 12/08/16 12/09/16 04:21 06:28 04:45 Creatinine 1.06 0.76 Lactic Acid Ammonia 30 Troponin I B-Natriuretic Peptide TSH 3rd Generation Phys Exam - Physical Examination Constitutional: NAD sitting up in chair HEENT: PERRLA, moist MMs, sclera anicteric, oral pharynx no lesions, 2+ tonsils Neck: no nodes, no JVD, supple, full ROM Respiratory: no wheezing, no rales, no rhonchi, clear to auscultation bilateral Cardiovascular: RRR, no significant murmur Gastrointestinal: soft, non-tender, no distention, positive bowel sounds Musculoskeletal: no edema, pulses present Neurological: non-focal, normal sensation, moves all 4 limbs Psychiatric: normal affect, A&O x 3 Skin: no rash Dx/Plan (1) Right lower lobe pneumonia Code(s): J18.1 - LOBAR PNEUMONIA, UNSPECIFIED ORGANISM Status: Acute (2) UTI (urinary tract infection) Status: Acute Qualifiers: Urinary tract infection type: acute cystitis Hematuria presence: without hematuria Qualified Code(s): N30.00 - Acute cystitis without hematuria Comment: Klebsiella . (3) Atrial fibrillation Code(s): I48.91 - UNSPECIFIED ATRIAL FIBRILLATION Status: Chronic Qualifiers: Atrial fibrillation type: chronic Qualified Code(s): I48.2 - Chronic atrial fibrillation Comment: lily hSer per (4) Dyslipidemia Code(s): E78.5 - HYPERLIPIDEMIA, UNSPECIFIED Status: Chronic (5) GERD (gastroesophageal reflux disease) Code(s): K21.9 - GASTRO-ESOPHAGEAL REFLUX DISEASE WITHOUT ESOPHAGITIS Status: Chronic Qualifiers: Esophagitis presence: without esophagitis Qualified Code(s): K21.9 - Gastro -esophageal reflux disease without esophagitis (6) Hypertension Code(s): I10 - ESSENTIAL (PRIMARY) HYPERTENSION Status: Chronic Qualifiers: Hypertension type: essential hypertension Qualified Code(s): I10 - Essential (primary) hypertension (7) Hypothyroidism Code(s): E03.9 - HYPOTHYROIDISM, UNSPECIFIED Status: Chronic Qualifiers: Hypothyroidism type: acquired Qualified Code(s): E03.9 - Hypothyroidism, unspecified (8) SARAI (obstructive sleep apnea) Code(s): G47.33 - OBSTRUCTIVE SLEEP APNEA (ADULT) (PEDIATRIC) Status: Chronic (9) Recurrent falls Code(s): R29.6 - REPEATED FALLS Status: Chronic Comment: (10) TRAN (acute kidney injury) Code(s): N17.9 - ACUTE KIDNEY FAILURE, UNSPECIFIED Status: Resolved Comment : (11) Hypotension Status: Resolved Qualifiers: Hypotension type: hypotension due to drug Qualified Code(s): I95.2 - Hypotension due to drugs Comment: - Plan reduce levothyroxine dose as TSH very low. -: ?Chr Anticoagulation.Pt fall risk-defer to cardiology -: on Po ABx.hemodynamically stable.Ok to DC home. -: discussed on phome w -he agrees w DC plan. -: See DC summary for details. * . Review of Systems - Review of Systems Constitutional: Weakness, Malaise. negative: Fever, Chills, Sweats, Other Respiratory: negative: Cough, Dry, Shortness of Breath, Hemoptysis, SOB with Excertion, Pleuritic Pain, Sputum, Wheezing Cardiovascular: negative: Chest Pain, Palpitations, Orthopnea, Paroxysmal Noc. Dyspnea, Edema, Light Headedness, Other Gastrointestinal: negative: Nausea, Vomiting, Abdominal Pain, Diarrhea, Constipation, Melena, Hematochezia, Other Genitourinary: negative: Dysuria, Frequency, Incontinence, Hematuria, Retention , Other Musculoskeletal: negative: Neck Pain, Shoulder Pain, Arm Pain, Back Pain, Hand Pain, Leg Pain, Foot Pain, Other Neurological: negative: Weakness, Numbness, Incoordination, Change in Speech, Confusion, Seizures, Other - Medications/Allergies Allergies/Adverse Reactions: Allergies Allergy/AdvReac Type Severity Reaction Status Date / Time carisoprodol Allergy Unknown Verified 12/03/16 01:09 Penicillins Allergy Unknown Verified 12/03/16 01:09 NSAIDS (Non-Steroidal Allergy Verified 12/03/16 01:48 Anti-Inflamma tizanidine [From Zanaflex] Allergy Verified 12/03/16 01:48 Medications: Current Medications Acetaminophen (Tylenol) 650 mg PO Q4H PRN PRN Reason: Headache/Fever or Pain Last Admin: 12/10/16 03:30 Dose: 650 mg Albuterol/Ipratropium (Duoneb) 3 ml NEB [id number] PRN PRN Reason: SOB &/or Wheezing Albuterol/Ipratropium (Duoneb) 3 ml NEB [id number] [facility] Last Admin: 12/12/16 07:55 Dose: 3 ml Apixaban (Eliquis) 5 mg PO BID [facility] Last Admin: 12/12/16 07:48 Dose: 5 mg Butalbital/Aspirin/Caffeine (Fiorinal) 1 tab PO Q4H PRN PRN Reason: Headache Last Admin: 12/11/16 13:49 Dose: 1 tab Carvedilol (Coreg) 50 mg PO BID-[facility] Last Admin: 12/12/16 07:48 Dose: 50 mg Cefdinir (Omnicef) 300 mg PO BID [facility] Last Admin: 12/12/16 07:47 Dose: 300 mg Digoxin (Lanoxin) 0.125 mg PO DAILY [facility] Last Admin: 12/12/16 07:47 Dose: 0.125 mg Docusate Sodium (Colace) 100 mg PO BID [facility] Last Admin: 12/12/16 07:48 Dose: 100 mg Famotidine (Pepcid) 20 mg PO BID [facility] Last Admin: 12/12/16 07:49 Dose: 20 mg Fluticasone Propionate (Flonase Nasal [place]) 0 gm NASAL BID [facility] Last Admin: 12/12/16 07:46 Dose: 1 spr Folic Acid (Folvite) 1 mg PO DAILY [facility] Last Admin: 12/12/16 07:48 Dose: 1 mg Gabapentin (Neurontin) 300 mg PO TID [facility] Last Admin: 12/12/16 07:47 Dose: 300 mg Hydralazine HCl (Apresoline) 10 mg SLOW IVP Q4H PRN PRN Reason: SBP Greater Than 180 Last Admin: 12/09/16 07:45 Dose: 10 mg Hydralazine HCl (Apresoline) 5 mg SLOW IVP Q4H PRN PRN Reason: SBP GREATER THAN 160 Last Admin: 12/10/16 03:29 Dose: 5 mg Levothyroxine Sodium (Synthroid) 75 mcg PO 0600 [facility] Melatonin (Melatonin) 3 mg PO HS PRN PRN Reason: Insomnia Metoclopramide HCl (Reglan) 5 mg PO ACHS [facility] Last Admin: 12/12/16 07:44 Dose: Not Given Morphine Sulfate (Morphine Sulfate Ir Tab) 15 mg PO BID [facility] Last Admin: 12/12/16 07:49 Dose: 15 mg Nitroglycerin (Nitrostat) 0.4 mg PO Q5MIN PRN PRN Reason: Chest Pain Ondansetron HCl (Zofran Odt) 4 mg PO Q6H PRN PRN Reason: Nausea/Vomiting Last Admin: 12/05/16 19:15 Dose: 4 mg Prednisone (Prednisone) 20 mg PO QAM-WM [facility] Last Admin: 12/12/16 07:47 Dose: 20 mg Ramipril (Altace) 5 mg PO DAILY [facility] Last Admin: 12/12/16 07:48 Dose: 5 mg Saccharomyces Boulardii (Florastor) 250 mg PO 1200 [facility] Last Admin: 12/11/16 12:55 Dose: 250 mg Senna (Senokot) 2 tab PO HSPRN PRN PRN Reason: Constipation Sodium Chloride (Flush - Normal Saline) 10 ml IVF Q12HR [facility] Last Admin: 12/12/16 07:55 Dose: 10 ml Sodium Chloride (Flush - Normal Saline) 10 ml IVF PRN PRN PRN Reason: Saline Flush Last Admin: 12/07/16 08:43 Dose: 10 ml Sodium Chloride ([place] Nasal [place] 0.65%) 0 ml EA NARE Q4H PRN PRN Reason: Nasal Dryness Last Admin: 12/11/16 09:20 Dose: 2 sprays Sotalol HCl (Betapace) 120 mg PO BID [facility] Last Admin: 12/12/16 07:47 Dose: 120 mg
[2016-12-12] MEDS ORDERED: Levothyroxine Sodium 75 MCG TAB PO SCH (10:30)
[2016-12-12] MEDS ORDERED: Ramipril 5 MG CAP PO SCH (12:15)
[2016-12-12] MEDS: Saccharomyces boulardii 250 MG CAP PO SCH (12:17)
[2016-12-12 12:55] VITALS: BP 164/81
[2016-12-12 13:21] VITALS: TEMP 98.8
--- NOTE | 2016-12-13 02:01 | DIS ---
DATE OF ADMISSION: 12/02/2016 DATE OF DISCHARGE: 12/12/2016 DISCHARGE DISPOSITION: Home with home health. PRIMARY CARE PHYSICIAN: Jarrell Yadav M.D. DISCHARGE DIAGNOSES: 1. Community-acquired pneumonia. 2. Urinary tract infection. 3. Chronic atrial fibrillation, on chronic anticoagulation per her hospice admitting clerk, Dr. Belle. 4. Dyslipidemia. 5. Gastroesophageal reflux disease. 6. Hypertension. 7. Hypothyroidism. 8. Obstructive sleep apnea. 9. Recurrent falls. 10. Acute kidney injury, resolved. 11. Hypotension, resolved. DISCHARGE MEDICATIONS: As follows: Sulfasalazine 500 mg p.o. b.i.d., sotalol 120 mg p.o. b.i.d., r amipril 10 mg daily, Nitrostat sublingual as needed, MS Contin 45 mg p.o. b.i.d., metoclopramide 10 mg p.o. q.i.d., methotrexate 0.4 mL as directed, Robaxin 750 mg q.i.d. p.r.n., levothyroxine, the do se has been changed to 75 mcg daily, Remicade as previously prescribed per the H\T\P, ibandronate 15 0 mg every 30 days, gabapentin 300 mg p.o. daily, Lasix 20 mg daily, folic acid 1 mg daily, calcium with vitamin D daily, aspirin 81 mg daily, Eliquis 5 mg p.o. b.i.d., prednisone 20 mg daily, Florast or daily, Omnicef 300 mg p.o. b.i.d. for 5 more days, Coreg 50 mg p.o. b.i.d. CONSULTATIONS INHOUSE: Include: 1. Pulmonary Critical Care Medicine, Dr. Collier. 2. Cardiology, Drs. Glover and Yoshi. PROCEDURES DONE IN THE HOSPITAL: Include: 1. CT scan of the brain, which is negative for any acute intracranial findings. Involution changes and chronic ischemic white matter changes have been noticed. 2. Transthoracic echocardiogram, which showed an ejection fraction of 50%-55%. Moderately enlarged left atrium and right atrium is seen. 3. Multiple chest x-rays, most recent 12/05/2016, which showed moderate pulmonary vascular congesti on. ADMISSION HISTORY: Ms. Lew is a 81-year-old female with past medical history of chronic atrial fi brillation, CHF, cardiomyopathy, hypertension, dyslipidemia, and obstructive sleep apnea, who presen lloyd to the emergency room with complaints of low blood pressure and recent multiple falls. Upon pre sentation, her systolic blood pressure was in the 70s. She was admitted for further evaluation afte r being started on IV fluid for resuscitation purposes. Her kidney function showed creatinine of 2. 01 and hemoglobin low at 8.6. Please see admission history and physical for further details. She w as empirically started on IV Rocephin for acute cystitis. HOSPITAL COURSE: Cardiology was consulted and there was concern of multiple falls. The patient was on chronic anticoagulation with Eliquis for her chronic atrial fibrillation. Dr. Glover initial ly saw the patient and stopped Eliquis, but Dr. Belle, who is her regular hospice admitting clerk restarted Eliquis. Echocardiogram was done because of the hypotension on presentation, which was essentially unremarkable except for chronic changes. Pulmonary Medicine was consulted as there was question of right-sided infiltrate. She was initially treated with IV antibiotic and was seen by Dr. Collier initially. Her antibiotics were changed to ora l antibiotic and steroids were added. Eventually, she was stabilized in terms of cardiac and pulmonary status. She was doing well on oral antibiotics and oral anticoagulation as started by Cardiology and was eager to go home. She was gi stefan options for rehabilitation placement, but she was very adamant that she does not want that. She eventually went home with home health earlier today. I discussed the discharge plan with her [place]os[place] nd over the phone, who was agreeable with that. Please note that her Synthroid dose is decreased and her TSH was found to be very low at 0.264. She will follow up with her primary care physician with regards to repeat labs in about 6 weeks of time . She was seen and examined prior to discharge. Please see hospitalist progress note from today's linda e for further detail including [id number] interaction. Total time spent in the discharge of this patient 35 minutes.
[2016-12-13] MEDS ORDERED: Levothyroxine Sodium 75 MCG TAB PO SCH (06:00)
[2016-12-13] MEDS ORDERED: Ramipril 5 MG CAP PO SCH (09:00)
--- NOTE | 2016-12-16 12:14 | PQF ---
TADEO FLORES RICHA MD [id number] CLINICAL DOCUMENTATION CLARIFICATION FORM: POST DISCHARGE Addendum to original discharge summary date: ____ Late entry note date: __ DATE: 12/16/2016 ATTN: ILYA REID Please exercise your independent, professional judgment in responding to the clarification form. Clinical indicators are provided on the bottom of this form for your review 12/05 CONSULT - DYSPNEA, DOUBT SIGNIFICANT PNEUMONIA PN - RLL PNEUMONIA 12/08 PN - RLL PNEUMONIA, SUSPECTED ASPIRATION PNEUMONIA - ON ANTIBIOTICS DS - COMMUNITY-ACQUIRED PNEUMONIA Please check appropriate box(s): [ ] Aspiration Pneumonia [ ] Aspiration Bronchitis [ ] Empirically treating Gram Negative Pneumonia [ ] Empirically treating Anaerobic Pneumonia [ ] Pneumonia secondary to (specify organism / underlying disease) [ X ] Simple Pneumonia (community acquired - nosocomial) [ ] Bronchopneumonia [ ] Pneumonia of unknown etiology [ ] Other diagnosis [ ] Unable to determine In addition, please specify: Present on Admission (POA): [ X ] Yes [ ] No [ ] Unable to determine For continuity of documentation, please document condition throughout progress notes and discharge summary. Thank You. CLINICAL INDICATORS - SIGNS / SYMPTOMS / LABS Fever, Chest pain, expectoration Elevated WBC Current aspiration or vomiting Current NG tube Decreased LOC or altered mental status Dysphagia / + swallow study / impaired gag reflex SOB, Hypoxia, ABGs, O2 sats Pulmonary infiltrate / CXR results Look for type of Antibiotics RISK FACTORS DYSPNEA UTI ARF TREATMENTS: Antibiotics Pulmonary consult IV fluids Serial CXRs (This form is maintained as a part of the permanent medical record) 2014 [employer]. All Rights Reserved Lana Velasquez, [facility], [facility] [email or web address] [phone] [place]
== END 2016-12-12 15:47 | disposition home health service (06) | DRG 682 ==
LOC: ERS 14:41 → 2NO 18:00 → T4-B 12-08 10:31
PROVIDERS: ADMIT Internal Medicine Infectious Disease; ATTEND Internal Medicine Infectious Disease
DX: N17.9 Acute kidney failure, unspecified (principal); J18.9 Pneumonia, unspecified organism; I13.0 Hypertensive heart and chronic kidney disease with heart failure and stage 1 through stage 4 chronic kidney disease, or unspecified chronic kidney disease; I42.9 Cardiomyopathy, unspecified; I50.22 Chronic systolic (congestive) heart failure; J44.0 Chronic obstructive pulmonary disease with (acute) lower respiratory infection; D62 Acute posthemorrhagic anemia; I95.2 Hypotension due to drugs; N30.01 Acute cystitis with hematuria; I48.2 Chronic atrial fibrillation; B96.1 Klebsiella pneumoniae [K. pneumoniae] as the cause of diseases classified elsewhere; E78.5 Hyperlipidemia, unspecified; E03.9 Hypothyroidism, unspecified; Z23 Encounter for immunization; G47.33 Obstructive sleep apnea (adult) (pediatric); Z91.81 History of falling; N18.3 Chronic kidney disease, stage 3 (moderate); Z95.810 Presence of automatic (implantable) cardiac defibrillator; G89.4 Chronic pain syndrome; T50.2X5A Adverse effect of carbonic-anhydrase inhibitors, benzothiadiazides and other diuretics, initial encounter; E86.1 Hypovolemia
CPT/HCPCS: 36415; 36416; 51701; 70450; 71010; 80048; 80053; 80069; 81003; 81015; 82140; 82553; 83605; 83690; 83735; 83880; 84443; 84484; 85014; 85018; 85025; 85049; 87040; 87077; 87086; 87186; 90471; 90682; 90715; 93005; 93306; 94640; 94760; 96360; 96361; 96365; 96366; A4216; A4353; G0008; G8978-GP-CJ; G8979-GP-CH; G8987-GO-CM; G8988-GO-CK; J0360; J0696; J1644; J1940; J2920; J3370; J3490; J7050; J7506; J7620; Q0162; Q2036

== ENCOUNTER 2017-05-19 12:09 | Emergency (ER) | payer MEDICARE ==
[~2017-05-19 12:09] MED LIST: ISOVUE-370 76%-LOCM 1 ML ONE
[2017-05-19 13:01] LABS: ALT (SGPT) 13 U/L (8-55); AST (SGOT) 25 U/L (5-34); Albumin 4.4 g/dL (3.4-4.8); Alkaline Phosphatase 68 U/L (40-150); Anion Gap 12 mmol/L (10-20); BUN (Urea Nitrogen) 32 mg/dL (9.8-20.1); Bilirubin, Total 0.9 mg/dL (0.2-1.2); Calc. Creatinine Clearance 0 mL/min (70-130); Calcium 10.5 mg/dL (7.8-10.44); Carbon Dioxide 35 mmol/L (23-31); Chloride 96 mmol/L (98-107); Estimated GFR-MDRD 53; Glucose 141 mg/dL (83-110); Potassium 4.1 mmol/L (3.5-5.1); Protein, Total 7.4 g/dL (6.0-8.3); Sodium 139 mmol/L (136-145)
--- NOTE | 2017-05-19 13:08 | RAD ---
CHEST 1 VIEW: HISTORY: Syncope. COMPARISON: Chest radiograph from 2017. FINDINGS: Chronic elevation of right hemidiaphragm versus herniation of large bowel through the diaphragmatic d efect. Mild atelectatic changes in the left lower lobe. Bilateral shoulder arthroplasties are present. Numerous cardiac wires project over the right atrium and right ventricle. IMPRESSION: No significant change in radiographic appearance of the chest. 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 POS: [facility]
[2017-05-19 13:09] LABS: Hemoglobin 10.9 g/dL (12.0-16.0); Mean Corpuscular HGB CONC 30.5 g/dL (32.0-36.0); Mean Corpuscular Hemoglobin 22.3 pg (27.0-31.0); Mean Corpuscular Volume 72.9 fl (81.0-99.0); Mean Platelet Volume 9.2 fL (7.4-10.4); Platelet Count 217 thou/uL (130-400); RBC Distribution Width 19.1 % (11.5-14.5); White Blood Cell (WBC) Count 16.2 thou/uL (4.8-10.8)
[2017-05-19 13:38] LABS: #Lymphocytes 1.1 thou/uL (1.20-3.40); #Monocytes 1.4 thou/uL (0.11-0.59); #Neutrophils 13.6 thou/uL (1.40-6.50); %Basophils 0.3 % (0.0-1.0); %Eosinophils 0.1 % (0.0-10.0); %Lymphocytes 6.8 % (21.0-51.0); %Monocytes 8.8 % (0.0-10.0); %Neutrophils 83.9 % (42.0-75.0); Anisocytosis SLIGHT = 6-15 cells (100X) (0-5/hpf); Hypochromia SLIGHT = 6-15 cells (100X) (0-5/hpf); MDiff Complete? YES; Microcytosis SLIGHT = 6-15 cells (100X) (0-5/hpf); PLT Morphology Comment Appears Adequate
[2017-05-19 14:02] LABS: Bilirubin Negative (Negative); Blood, Urine Negative (Negative); Clarity CLEAR (Clear); Glucose, Urine (Dipstick) Negative (Negative); Leukocyte Small (Negative); Nitrite Negative (Negative); Protein, Urine (Dipstick) Trace mg/dL (Neg-Trace); Specific Gravity, Urine 1.019 (1.002-1.036); pH, Urine 7.5 (5.0-9.0)
[2017-05-19 14:04] LABS: CKMB 1.3 ng/mL (0-6.6); Troponin I 0.013 ng/mL (< 0.028)
[2017-05-19 14:04] LABS: Bacteria/HPF 4+ HPF (None Seen); Hyaline Casts/LPF 0-3 HYALINE CAST LPF (0-3 Hyaline); Pathc Cast-AUWi Flag 0.14 (0-2.49); RBC/HPF 0-3 HPF (0-3); Squamous Epithelial 0-3 HPF (0-3)
--- NOTE | 2017-05-19 14:56 | CT ---
CT CHEST WITH CONTRAST CT ABDOMEN WITH CONTRAST CT PELVIS WITH CONTRAST: HISTORY: Weakness. Cramping. COMPARISON: Radiograph same day. FINDINGS: Heart size is mildly enlarged. Numerous cardiac leads are present. No pericardial effusion. Chronic elevation of the right hemidiaphragm. Passive atelectasis in the right lower lobe. No focal areas of confluent airspace consolidation, pne umothorax, or effusion. Bilateral shoulder arthroplasties are present. The sternum and manubrium are intact. No thoracic sp ine compression fracture. Healing anterolateral right 3rd, 4th, and 5th rib fractures. A small focus of gas within the interco stal veins and paraspinal veins, likely iatrogenic. There is advanced degenerative disk space height loss at L2-3. Severe facet arthrosis throughout the lumbar spine. There is osseous fusion of the anterior and posterior elements of L4/L5 with anteroli sthesis, grade I/II of L4 over L5. There is advanced degenerative disease of the pubic symphysis. L aminectomy changes of L4 and L5. Moderate stool burden within the colon. Mild thickening of the wall of the rectum. There is dilatation of the extrahepatic mild intrahepatic biliary dilatation, likely reservoir effect , from cholecystectomy changes. Mild dilatation of the renal pelvic bilaterally. There is thickenin g of the bilateral pelvic sidewall peritoneum. Moderate submucosal edema of the rectum. There is calcification within the right ovarian remnant wit h dilated right gonadal veins. There are multiple enlarging hypodensities of both kidneys which are not definitively cysts. IMPRESSION: 1. Moderate stool burden throughout the colon with abnormal thickening of the rectum and sigmoid wit h inflammatory stranding and some free fluid in the pelvis as well as thickening of the pelvic sidewa ll bilaterally suggesting proctitis/colitis. 2. Subacute right-sided rib fractures. 3. [place] effect of intrahepatic and extrahepatic biliary system. 4. Hypodensities of both kidneys not definitely cysts. Followup ultrasound in 6 months recommended. 5. Chronic elevation of the right hemidiaphragm with small volume perihepatic fluid may be tracking from the pelvis and the pelvic inflammatory process. POS: PATR[facility]
== END 2017-05-19 15:15 | disposition home or self-care (01) ==
LOC: ERS 12:09
DX: R53.83 Other fatigue (principal); R42 Dizziness and giddiness; T40.2X5A Adverse effect of other opioids, initial encounter; E86.9 Volume depletion, unspecified; D72.829 Elevated white blood cell count, unspecified; N39.0 Urinary tract infection, site not specified; I48.91 Unspecified atrial fibrillation; I11.0 Hypertensive heart disease with heart failure; I50.9 Heart failure, unspecified; E78.5 Hyperlipidemia, unspecified; Z79.82 Long term (current) use of aspirin; Z79.899 Other long term (current) drug therapy
CPT/HCPCS: 51701; 71045; 71260; 74177; 80053; 81003; 81015; 82553; 83605; 84484; 85025; 87077; 87086; 87186; 93005; 96361; 96374; A4353; J0696

== ENCOUNTER 2017-05-23 11:33 | Inpatient (IN) | payer MEDICARE ==
[2017-05-23 12:36] LABS: ALT (SGPT) 106 U/L (8-55); AST (SGOT) 114 U/L (5-34); Alkaline Phosphatase 74 U/L (40-150); Anion Gap 13 mmol/L (10-20); BUN (Urea Nitrogen) 24 mg/dL (9.8-20.1); Calc. Creatinine Clearance 0 mL/min (70-130); Calcium 10.1 mg/dL (7.8-10.44); Carbon Dioxide 28 mmol/L (23-31); Chloride 102 mmol/L (98-107); Estimated GFR-MDRD 65; Glucose 126 mg/dL (83-110); Potassium 4.7 mmol/L (3.5-5.1); Sodium 138 mmol/L (136-145)
[2017-05-23 12:44] LABS: #Lymphocytes 1.4 thou/uL (1.20-3.40); #Monocytes 0.7 thou/uL (0.11-0.59); #Neutrophils 3.7 thou/uL (1.40-6.50); %Basophils 0.2 % (0.0-1.0); %Eosinophils 0.3 % (0.0-10.0); %Neutrophils 63.5 % (42.0-75.0); Anisocytosis SLIGHT = 6-15 cells (100X) (0-5/hpf); Hemoglobin 10.2 g/dL (12.0-16.0); Hypochromia SLIGHT = 6-15 cells (100X) (0-5/hpf); MDiff Complete? YES; Mean Corpuscular HGB CONC 29.4 g/dL (32.0-36.0); Mean Corpuscular Hemoglobin 22.4 pg (27.0-31.0); Mean Corpuscular Volume 76.1 fl (81.0-99.0); Mean Platelet Volume 9.3 fL (7.4-10.4); Platelet Count 212 thou/uL (130-400); Polychromasia SLIGHT = 2-3 cells (100X) (0-2/hpf); RBC Distribution Width 19.1 % (11.5-14.5); Red Blood Cell (RBC) Count 4.53 mill/uL (4.20-5.40); White Blood Cell (WBC) Count 5.8 thou/uL (4.8-10.8)
--- NOTE | 2017-05-23 13:04 | RAD ---
SINGLE VIEW CHEST: HISTORY: Altered mental status. Urinary tract infection. Lethargy. COMPARISON: 05/19/2017 FINDINGS: A single view of the chest shows a normal sized cardiomediastinal silhouette. Pacemaker is unchanged in position. There is stable elevation of the right hemidiaphragm. There is no evidence of consoli dation, mass, or pleural effusion. The patient is status post bilateral shoulder arthroplasty. IMPRESSION: No evidence of acute cardiopulmonary disease. POS: [facility]
[2017-05-23 13:23] LABS: Troponin I 0.014 ng/mL (< 0.028)
[2017-05-23 13:41] LABS: Bilirubin Negative (Negative); Blood, Urine Negative (Negative); Clarity CLOUDY (Clear); Glucose, Urine (Dipstick) Negative (Negative); Leukocyte Trace (Negative); Nitrite Negative (Negative); Protein, Urine (Dipstick) 300 mg/dL (Neg-Trace); Specific Gravity, Urine 1.026 (1.002-1.036); Urobilinogen 0.2 mg/dL (0.2-1.0); pH, Urine 5.5 (5.0-9.0)
[2017-05-23 13:46] LABS: Bacteria/HPF 1+ HPF (None Seen); RBC/HPF None Seen HPF (0-3); Squamous Epithelial 0-3 HPF (0-3); WBC/HPF 0-3 HPF (0-3)
[2017-05-23 13:47] LABS: Hyaline Casts/LPF NONE SEEN LPF (0-3 Hyaline)
--- NOTE | 2017-05-23 14:05 | CT ---
CT BRAIN WITHOUT CONTRAST: HISTORY: Mental status changes. Altered mental status. The patient has a urinary tract infection and is on a ntibiotics. COMPARISON: 11/23/2016 TECHNIQUE: Multiple contiguous axial images were obtained in a CT of the brain without contrast. FINDINGS: There are scattered hypodensities in the subcortical and periventricular white matter, likely seconda ry to small vessel ischemic disease. No large confluent infarction is seen. There is no evidence of hydrocephalus, intracranial hemorrhag e, or extraaxial fluid collection. The calvarium and overlying soft tissues are unremarkable. The visualized paranasal sinuses and mast oid air cells are well aerated. IMPRESSION: No evidence of acute intracranial abnormality. POS: [facility]
[2017-05-23 15:54] LABS: Troponin I 0.021 ng/mL (< 0.028)
[2017-05-23 18:35] LABS: Troponin I 0.013 ng/mL (< 0.028)
[2017-05-23] MEDS ORDERED: Ondansetron ODT 4 MG TAB SL PRN (19:06)
[2017-05-23] MEDS ORDERED: Acetaminophen 325 MG TAB PO PRN (19:06)
[2017-05-23] MEDS ORDERED: Ondansetron HCl/PF 4 MG/2 ML Vial IVP PRN ×2 (19:06→20:45)
[2017-05-23] MEDS ORDERED: Sodium Chloride 0.9% 1,000 ML IV SCH (19:06)
[2017-05-23] MEDS ORDERED: hydrALAZINE 20 MG/ML VIAL SLOW IVP PRN (20:45)
[2017-05-23] MEDS ORDERED: Ondansetron ODT 4 MG TAB PO PRN (20:45)
[2017-05-23] MEDS ORDERED: Acetaminophen 500 MG TAB PO PRN (20:45)
[2017-05-23] MEDS ORDERED: cloNIDine 0.1 MG TAB PO PRN (20:45)
[2017-05-23] MEDS: cefTRIAXone\\ROCEPHIN 2 GM in Sodium Chloride 0.9% 100 ML IVPB SCH (21:29)
[2017-05-23] MEDS: Apixaban 5 MG TAB PO SCH (21:29)
[2017-05-23] MEDS: Sodium Chloride 0.9% 1,000 ML IV SCH (21:29)
[2017-05-23] MEDS: Sotalol HCl 80 MG TAB PO SCH (21:30)
[2017-05-23] MEDS: Famotidine 20 MG TAB PO SCH (21:30)
[2017-05-23 22:39] VITALS: BMI 27.3
[2017-05-24] MEDS: Morphine ER 15 MG TAB PO PRN ×2 (02:09→14:29)
--- NOTE | 2017-05-24 03:57 | HP ---
DATE OF ADMISSION: 05/23/2017 PRIMARY CARE PROVIDER: Dr. Jarrell Yadav. CHIEF COMPLAINT: Altered mentation. HISTORY OF PRESENT ILLNESS: This is a an 82-year-old female who presents to [facility] Emergency Department after family members noted the patient with mental status ch anges including lethargy in the last 24 hours. The patient was apparently seen in the emergency depa rtment on 05/19/2012 diagnosed with urinary tract infection and placed on Macrobid. The history is o btained after review of the electronic medical record and discussion with the ER attending as patient is unable to provide a coherent history due to altered mentation. The patient had admitted to [facility] fatigue, weakness, and confusion. No specific history of fall, recent head injury, documented f ever, chills or travel history. No diarrhea; however, the patient did admit to decreased appetite ov er the last 2-3 days. The family had denied any specific melena, hematemesis, nausea or vomiting. N o other family members with similar symptoms. The patient resides with her spouse and granddaughter in the [place], [place] area. In the emergency room, the patient underwent general evaluation inclu ding CT imaging of the brain showing no acute process. Portable chest x-ray was performed on 018 showing no acute cardiopulmonary process. The patient underwent CT imaging of the abdomen and pe lvis 05/19/2017 showing moderate stool burden in the colon with thickening of the rectum and sigmoid with inflammatory stranding. The patient also noted with subacute right-sided rib fractures. The pa tient received normal saline x1 liter in the emergency room and was referred to the Hospitalist Alysha lennon for admission. PAST MEDICAL HISTORY: 1. Chronic atrial fibrillation with chronic anticoagulation with Eliquis. 2. History of pneumonia. 3. Dyslipidemia. 4. Gastroesophageal reflux disease. 5. Hypertension. 6. Hypothyroidism. 7. Obstructive sleep apnea. 8. History of recurrent falls with rib fractures. 9. Chronic kidney disease, stage 2. 10. Diastolic dysfunction with preserved ejection fraction. PAST SURGICAL HISTORY: 1. Status post pacemaker/AICD placement. 2. Status post right total hip arthroplasty. 3. Status post appendectomy. 4. Status post hysterectomy. 5. Status post cholecystectomy. 6. Status post left knee surgery. 7. Status post right shoulder surgery. 8. Status post lumbar spine fusion. CURRENT MEDICATIONS: List will need to be verified with the family. 1. Enteric coated aspirin 81 mg 1 tab p.o. daily. 2. Lipitor 80 mg p.o. daily. 3. Lasix 20 mg 1 tab p.o. daily. 4. Gabapentin 300 mg p.o. q.i.d. 5. Levothyroxine 100 mcg p.o. daily. 6. Reglan 5 mg p.o. q.i.d. 7. Morphine extended release 15 mg p.o. b.i.d. 8. Carvedilol 6.25 mg p.o. b.i.d. 9. Eliquis 5 mg p.o. b.i.d. 10. Sulfasalazine 500 mg p.o. b.i.d. 11. Sotalol 120 mg p.o. b.i.d. 12. Prevacid 30 mg p.o. daily. 13. Methocarbamol 750 mg p.r.n. 14. Macrobid 100 mg p.o. b.i.d. ALLERGIES: CARISOPRODOL, PENICILLINS, NONSTEROIDAL ANTI-INFLAMMATORIES, TIZANIDINE. FAMILY HISTORY: No inheritable diseases per family report. SOCIAL HISTORY: The patient resides in [place], [place] with her spouse and granddaughter. Retired . No current alcohol, tobacco or illicit drug use. REVIEW OF SYSTEMS: Unobtainable with patient's altered mental status. PHYSICAL EXAMINATION: VITAL SIGNS: On admission, blood pressure 139/92, pulse 85, respiratory rate 20, temperature 99.1 de grees Fahrenheit, O2 saturation 89% on room air. GENERAL APPEARANCE: This is an 82-year-old female, lethargic, answers questions minimally to direct engagement. Alert and oriented x1. HEENT: Pupils are equal, round, and reactive to light and accommodation. Extraocular muscles are in tact. No scleral icterus, no conjunctival injection. Nares patent. OP is clear. Oral mucosa dry a ppearing. NECK: Supple, no cervical adenopathy, no thyromegaly, no carotid bruits, no JVD appreciated. Cervic al spine with full active and passive range of motion. No meningeal signs appreciated. CHEST: Diminished breath sounds in the bases bilaterally. CARDIOVASCULAR: S1, S2 with irregular rate and rhythm. ABDOMEN: Rounded, soft, nontender, nondistended. Bowel sounds are positive in all four quadrants. There is no hepatosplenomegaly, no abdominal bruits, no rebound or guarding appreciated. EXTREMITIES: Warm and dry with fair turgor. No clubbing, cyanosis or asymmetric edema appreciated. Pulses palpable distally at the dorsalis pedis, posterior tibial, and popliteal arteries bilaterally . Capillary refill less than 2 seconds. NEUROLOGIC: Opens eyes to name and direct stimuli; however, falls to sleep in less than 10 seconds w hen not engaged. Speaks 1-2 words. Alert and oriented x1 to person. The patient not observed ambul atory during this exam. No unilateral deficits appreciated. PERTINENT LABORATORY AND X-RAY FINDINGS: Sodium 138, potassium 4.7, chloride 102, CO2 of 28, BUN 24, creatinine 0.84 with estimated GFR 65, glucose 126. Lactic acid level 1.0, calcium 10.1, AST 114, A LT 106, alkaline phosphatase 74. Troponin I negative x3. Albumin 4.0. CBC showed a white blood fausto l count of 5.8, hemoglobin 10, hematocrit 35, platelet count 212 with normal differential. Urinalysi s showed positive protein, trace leukocyte esterase with 1+ urine bacteria. Portable chest x-ray linda ed 05/23/2017 showed no acute cardiopulmonary process. CT of the abdomen and pelvis dated 05/19/2017 showed moderate stool burden in the colon with abnormal thickening of the rectum and sigmoid region. Subacute right-sided rib fractures noted. CT of the brain without contrast dated 05/23/2017 showed no acute intracranial process. EKG dated 05/23/2017 by my interpretation shows a ventricular paced rhythm with heart rates in the 90s. ASSESSMENT AND PLAN: 1. Acute metabolic encephalopathy. Suspect secondarily to urinary tract infection. We will continu e treatment for urinary tract infection and monitor mental status response. 2. Urinary tract infection, suspected. Await final urine culture results. Continue Levaquin 750 mg IV daily. Continue Rocephin 2 g IV q.24 hours, pending final culture results. 3. Chronic kidney disease, stage 2. Avoid nephrotoxic agents and contrast media. Continue intraven ous normal saline at 75 mL per hour. Repeat creatinine. 4. Transaminitis. Unclear etiology currently. We will repeat LFTs in the a.m. No obstructive proc ess identified on CT imaging of the abdomen and pelvis. 5. Chronic microcytic anemia. No current evidence to suggest acute blood loss. Consider iron studi es when patient clinically stabilizes. Repeat CBC in the a.m. 6. Chronic atrial fibrillation with chronic anticoagulation with Eliquis. We will hold Eliquis, pen ding neurologic improvement. Continue rate control measures. 7. Polypharmacy. We will hold the majority of home medications until mental status improves. The p atient should clinically improve with modification to current medication regimen. 8. Prophylaxis. Sequential compression devices while in bed. Pepcid 20 mg p.o. b.i.d. PT, OT eval uation for functional assessment. 9. Code status is FULL. Surrogate medical decision maker is patient's spouse.
[2017-05-24] MEDS: Levothyroxine Sodium 125 MCG TAB PO SCH (05:22)
[2017-05-24] MEDS ORDERED: Levothyroxine Sodium 75 MCG TAB PO SCH (06:00)
[2017-05-24] MEDS ORDERED: Levothyroxine Sodium 112 MCG TAB PO SCH (06:00)
[2017-05-24 06:04] LABS: Hemoglobin 10.6 g/dL (12.0-16.0); Mean Corpuscular HGB CONC 29.7 g/dL (32.0-36.0); Mean Corpuscular Hemoglobin 22.5 pg (27.0-31.0); Mean Corpuscular Volume 75.6 fl (81.0-99.0); Mean Platelet Volume 9.1 fL (7.4-10.4); Platelet Count 199 thou/uL (130-400); Red Blood Cell (RBC) Count 4.71 mill/uL (4.20-5.40); White Blood Cell (WBC) Count 6.6 thou/uL (4.8-10.8)
[2017-05-24 06:11] LABS: Hypochromia SLIGHT = 6-15 cells (100X) (0-5/hpf); Lymphocytes 17 % (21-51); MDiff Complete? YES; Microcytosis SLIGHT = 6-15 cells (100X) (0-5/hpf); Monocytes 19 % (0-10); Neutrophil 63 % (42-75); Nucleated RBC 5 % (0)
[2017-05-24 06:14] LABS: ALT (SGPT) 114 U/L (8-55); AST (SGOT) 96 U/L (5-34); Albumin 4.2 g/dL (3.4-4.8); Alkaline Phosphatase 80 U/L (40-150); Anion Gap 10 mmol/L (10-20); BUN (Urea Nitrogen) 25 mg/dL (9.8-20.1); Bilirubin, Total 0.5 mg/dL (0.2-1.2); Calc. Creatinine Clearance 63 mL/min (70-130); Calcium 9.9 mg/dL (7.8-10.44); Carbon Dioxide 33 mmol/L (23-31); Chloride 103 mmol/L (98-107); Estimated GFR-MDRD 65; Glucose 97 mg/dL (83-110); Potassium 4.8 mmol/L (3.5-5.1); Protein, Total 7.2 g/dL (6.0-8.3); Sodium 141 mmol/L (136-145)
[2017-05-24] MEDS: Sotalol HCl 80 MG TAB PO SCH ×2 (08:05→20:58)
[2017-05-24] MEDS: Apixaban 5 MG TAB PO SCH ×2 (08:05→20:58)
[2017-05-24] MEDS: Aspirin 81 mg Enteric Coated Tablet PO SCH (08:07)
[2017-05-24] MEDS: Ramipril 5 MG CAP PO SCH (08:07)
[2017-05-24] MEDS: Famotidine 20 MG TAB PO SCH ×2 (08:16→20:58)
[2017-05-24] MEDS: Sodium Chloride 0.9% 1,000 ML IV SCH (12:05)
--- NOTE | 2017-05-24 16:30 | PDOC.PN ---
- Subjective Encounter Start Date: 05/24/17 Encounter Start Time: 16:30 Subjective: f/u acute encephalopathy of unclear etiology. More alert today and responds -: to questions. Empirically tx for UTI with Rocephin though current Ucx neg -: but Ucx 05/19/17 + E. coli. - Objective Resuscitation Status: Resuscitation Status FULL:Full Resuscitation MAR Reviewed: Yes Vital Signs & Weight: Vital Signs (12 hours) Temp Pulse Resp BP Pulse Ox 05/24/17 16:15 98.5 F 96 19 153/96 H 93 L 05/24/17 11:49 97.5 F L 97 18 161/87 H 95 05/24/17 08:05 108 H 05/24/17 07:59 97.5 F L 97 18 169/98 H 93 L I&O: 05/23/17 05/24/17 05/25/17 06:59 06:59 06:59 Intake Total 1125 Output Total 400 Balance 725 Result Diagrams: 05/24/17 05:34 05/24/17 05:34 Additional Labs: Microbiology 05/23/17 13:26 Urine Straight Catheter Urine Culture - Preliminary NO GROWTH AT 12 HOURS 05/23/17 12:52 Venous blood - Left Hand Blood Culture - Preliminary Specimen has been received and culture in progress. No Growth to date. 05/23/17 12:51 Venous blood - Left Hand Blood Culture - Preliminary Specimen has been received and culture in progress. No Growth to date. Laboratory Tests 05/23/17 05/24/17 12:04 05:34 AST 114 H 96 H ALT 106 H 114 H Alkaline Phosphatase 74 80 Radiology Reviewed by me: Yes (PCXR - no acute findings) EKG Reviewed by me: Yes (Tele - V-pacing) Phys Exam - Physical Examination alert, responsive HEENT: PERRLA, oral pharynx no lesions Neck: no JVD, supple scattered coarse sounds Cardiovascular: RRR Gastrointestinal: soft, non-tender, no distention, positive bowel sounds Musculoskeletal: no edema, pulses present Neurological: normal sensation, moves all 4 limbs Psychiatric: A&O x 3 Skin: normal turgor, cap refill <2 seconds Dx/Plan (1) Acute metabolic encephalopathy Code(s): G93.41 - METABOLIC ENCEPHALOPATHY Status: Acute Comment: Improved, Etiology unclear but suspect UTI with polypharmacy as source, continue to monitor clinical response (2) UTI (urinary tract infection) Status: Suspected Qualifiers: Urinary tract infection type: acute cystitis Hematuria presence: without hematuria Qualified Code(s): N30.00 - Acute cystitis without hematuria Comment: Suspected but current Ucx negative but Ucx 05/19/17 + e. coli, continue Rocephin another 24h pending final cx results (3) CKD (chronic kidney disease), stage II Code(s): N18.2 - CHRONIC KIDNEY DISEASE, STAGE 2 (MILD) Status: Chronic Comment: Stable, avoid nephrotoxic meds and contrast (4) Transaminitis Code(s): R74.0 - NONSPEC ELEV OF LEVELS OF TRANSAMNS & LACTIC ACID DEHYDRGNSE Status: Acute Comment: ? etiology, improving with conservative mgmt (5) Microcytic anemia Code(s): D50.9 - IRON DEFICIENCY ANEMIA, UNSPECIFIED Status: Chronic Comment : Stable, no active blood loss (6) Atrial fibrillation Code(s): I48.91 - UNSPECIFIED ATRIAL FIBRILLATION Status: Chronic Qualifiers: Atrial fibrillation type: chronic Qualified Code(s): I48.2 - Chronic atrial fibrillation Comment: V-paced, continue Eliquis and Sotalol (7) Polypharmacy Code(s): Z79.899 - OTHER MEMORY CARE PROGRAM RESIDENT (CURRENT) DRUG THERAPY Status: Chronic Comment: Suspected, review medication regimen (8) Chronic pain disorder Code(s): G89.4 - CHRONIC PAIN SYNDROME Status: Chronic Comment: Review home regimen and consider adjustments - Plan continue antibiotics, PT/OT, social media specialist, out of bed/ambulate, DVT proph w/ SCDs Stable overall -: Continue Rocephin another 24h then consider de-escalating -: Saline lock IVF's -: PT for functional assessment -: AM lab: CMP, CBC * Likely home in 24h
[2017-05-24] MEDS: cefTRIAXone\\ROCEPHIN 2 GM in Sodium Chloride 0.9% 100 ML IVPB SCH (20:59)
[2017-05-25] MEDS: Morphine ER 15 MG TAB PO PRN (02:39)
[2017-05-25] MEDS: Levothyroxine Sodium 125 MCG TAB PO SCH (05:22)
[2017-05-25 06:14] LABS: Band 1 % (5-11); Hemoglobin 10.4 g/dL (12.0-16.0); Lymphocytes 14 % (21-51); MDiff Complete? YES; Mean Corpuscular HGB CONC 29.1 g/dL (32.0-36.0); Mean Corpuscular Hemoglobin 22.1 pg (27.0-31.0); Mean Platelet Volume 9.5 fL (7.4-10.4); Metamyelocyte 2 % (0-0); Monocytes 8 % (0-10); Neutrophil 75 % (42-75); Nucleated RBC 3 % (0); PLT Morphology Comment Appears Adequate; Platelet Count 194 thou/uL (130-400); RBC Distribution Width 19.2 % (11.5-14.5); Red Blood Cell (RBC) Count 4.71 mill/uL (4.20-5.40); White Blood Cell (WBC) Count 7.6 thou/uL (4.8-10.8)
[2017-05-25 06:17] LABS: ALT (SGPT) 110 U/L (8-55); AST (SGOT) 76 U/L (5-34); Albumin 3.9 g/dL (3.4-4.8); Alkaline Phosphatase 84 U/L (40-150); Anion Gap 9 mmol/L (10-20); BUN (Urea Nitrogen) 25 mg/dL (9.8-20.1); Bilirubin, Total 0.5 mg/dL (0.2-1.2); Calc. Creatinine Clearance 69 mL/min (70-130); Calcium 9.9 mg/dL (7.8-10.44); Carbon Dioxide 30 mmol/L (23-31); Chloride 106 mmol/L (98-107); Estimated GFR-MDRD 72; Globulin 2.9 g/dL (2.4-3.5); Glucose 139 mg/dL (83-110); Potassium 5.1 mmol/L (3.5-5.1); Protein, Total 6.8 g/dL (6.0-8.3); Sodium 140 mmol/L (136-145)
[2017-05-25 09:02] LABS: pH, Arterial 7.17 (7.35-7.45)
[2017-05-25 09:03] LABS: Actual Bicarbonate (HCO3a) 32.2 mEq/L (22-26); CO2 Tension 89.8 mmHg (35.0-45.0); Hematocrit-ABG 36.9 % (36.0-47.0); Hemoglobin (Hb) 10.2 g/dL (12.0-16.0); O2 Tension (PaO2) 91.5 mmHg (80.0-100.0)
[2017-05-25 09:04] LABS: Calcium, Ionized 1.4 mmol/L (1.12-1.30); Puncture Site RRA
--- NOTE | 2017-05-25 09:24 | PDOC.PN ---
- Subjective Encounter Start Date: 05/25/17 Encounter Start Time: 09:00 Subjective: Kole ray called due to hypoxia, somnolence. Received MS Catherine -: around 0200 this am now lethargic. Narcan given and pt placed on BiPAP -: NIMV and transferred to CCU. - Objective Resuscitation Status: Resuscitation Status FULL:Full Resuscitation MAR Reviewed: Yes Vital Signs & Weight: Vital Signs (12 hours) Temp Pulse Resp BP Pulse Ox 05/25/17 09:06 109 H 05/25/17 04:00 97.6 F 93 24 H 153/86 H 92 L Weight Weight 160 lb I&O: 05/24/17 05/25/17 05/26/17 06:59 06:59 06:59 Intake Total 1125 2164 Output Total 400 1100 Balance 725 1064 Result Diagrams: 05/25/17 05:35 05/25/17 05:35 Additional Labs: Accuchecks 05/25/17 08:27 POC Glucose 160 H Microbiology 05/23/17 13:26 Urine Straight Catheter Urine Culture - Preliminary NO GROWTH AT 12 HOURS 05/23/17 12:52 Venous blood - Left Hand Blood Culture - Preliminary Specimen has been received and culture in progress. No Growth to date. 05/23/17 12:51 Venous blood - Left Hand Blood Culture - Preliminary Specimen has been received and culture in progress. No Growth to date. Laboratory Tests 05/23/17 05/24/17 05/25/17 12:04 05:34 05:35 Bicarbonate Actual ABG pH ABG pCO2 ABG pO2 ABG O2 Sat Calc/Juliana AST 114 H 96 H 76 H ALT 106 H 114 H 110 H Alkaline Phosphatase 74 80 84 05/25/17 08:25 Bicarbonate Actual 32.2 H ABG pH 7.17 L* ABG pCO2 89.8 H* ABG pO2 91.5 ABG O2 Sat Calc/Juliana 95.4 AST ALT Alkaline Phosphatase EKG Reviewed by me: Yes (Tele - A-fib variable rate, pacing) Phys Exam - Physical Examination somnolent, lethargic, moves arms and tries to sit up BiPAP FM in place HEENT: PERRLA, oral pharynx no lesions Neck: no JVD, supple Respiratory: no wheezing, clear to auscultation bilateral Cardiovascular: irregular Gastrointestinal: soft, non-tender, no distention, positive bowel sounds Musculoskeletal: no edema, pulses present moves extremities, tries to sit up, mumbling, lethargic Neurological: moves all 4 limbs Skin: normal turgor, cap refill <2 seconds Deviation from normal: Luis with clear urine Dx/Plan (1) Acute on chronic respiratory failure with hypoxia and hypercapnia Code(s): J96.21 - ACUTE AND CHRONIC RESPIRATORY FAILURE WITH HYPOXIA; J96.22 - ACUTE AND CHRONIC RESPIRATORY FAILURE WITH HYPERCAPNIA Status: Acute Comment : Secondary to narcotic OD, BiPAP NIMV, supportive mgmt, Pulmonology consulted, check CXR (2) Acute metabolic encephalopathy Code(s): G93.41 - METABOLIC ENCEPHALOPATHY Status: Acute Comment: Suspect due to narcotic OD and polypharmacy, Narcan given in [place] with some improvement, consider Narcan gtt, hold all narcotics (3) UTI (urinary tract infection) Status: Suspected Qualifiers: Urinary tract infection type: acute cystitis Hematuria presence: without hematuria Qualified Code(s): N30.00 - Acute cystitis without hematuria Comment: Suspected but current Ucx negative but Ucx 05/19/17 + e. coli, continue Rocephin another 24h pending final cx results (4) CKD (chronic kidney disease), stage II Code(s): N18.2 - CHRONIC KIDNEY DISEASE, STAGE 2 (MILD) Status: Chronic Comment: Stable, avoid nephrotoxic meds and contrast (5) Transaminitis Code(s): R74.0 - NONSPEC ELEV OF LEVELS OF TRANSAMNS & LACTIC ACID DEHYDRGNSE Status: Acute Comment: ? etiology, improving with conservative mgmt (6) Microcytic anemia Code(s): D50.9 - IRON DEFICIENCY ANEMIA, UNSPECIFIED Status: Chronic Comment : Stable, no active blood loss (7) Atrial fibrillation Code(s): I48.91 - UNSPECIFIED ATRIAL FIBRILLATION Status: Chronic Qualifiers: Atrial fibrillation type: chronic Qualified Code(s): I48.2 - Chronic atrial fibrillation Comment: V-paced, continue Eliquis and Sotalol, variable rate control, consult Cardiology service for evaluaiton (8) Polypharmacy Code(s): Z79.899 - OTHER CHECK INSPECTOR (CURRENT) DRUG THERAPY Status: Chronic Comment: Will need to modify narcotic regimen prior to d/c (9) Chronic pain disorder Code(s): G89.4 - CHRONIC PAIN SYNDROME Status: Chronic Comment: Review home regimen and consider adjustments, consider Pain mgmt referral for outpt supervision and monitoring - Plan continue antibiotics, social media analyst, respiratory therapy, DVT proph w/SCDs Continue BiPAP NIMV -: Narcan prn for somnolence -: Hold all Narcotics -: Consult Cardiology service for A-fib rvr -: Appreciate Pulmonology assistance * PCXR today * Labs: TSH, Mg++ * AM labs: CMP, CBC
[2017-05-25] MEDS ORDERED: Furosemide 40 MG/4 ML VIAL SLOW IVP SCH (10:00)
[2017-05-25] MEDS ORDERED: Naloxone HCl 2 MG in Sodium Chloride 0.9% 500 ML IV SCH (10:00)
[2017-05-25] MEDS: Naloxone HCl 0.4 mg/ml Vial ONE ×2 (10:32→19:33)
--- NOTE | 2017-05-25 11:00 | CON ---
DATE OF CONSULTATION: 05/25/2017 SERVICE: Pulmonary Medicine REASON FOR CONSULTATION: Respiratory failure. HISTORY OF PRESENT ILLNESS: The patient is an 82-year-old white female with past medical history sig nificant for a couple of presentations recently to the hospital with altered mentation. 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 She typically takes MS Contin twice daily. It is often up to 90 mg. Here in the hospital, she was only given 15 mg of MS Contin twice daily as ne eded. Her last dose was at 2:15 this morning. She was later found completely obtunded. She got a d ose of Narcan and started waking up a little bit. She cannot provide any elements of the history and remains a little encephalopathic. With deep stimulation, she will wake up and states some comprehens ible sounds. She indicates that she is uncomfortable. Without stimulation, she will immediately fal l back to sleep. We are in the process of moving into the ICU for closer observation while we sort t his thing out. There is reports that perhaps she is surreptitiously taking some medications and this may be an attempt to end her life. PAST MEDICAL HISTORY: 1. Atrial fibrillation, chronic. 2. Dyslipidemia. 3. Gastroesophageal reflux disease. 4. Hypertension. 5. Hypothyroidism. 6. Obstructive sleep apnea. 7. Recurrent falls. 8. Chronic kidney disease stage 2. 9. Chronic diastolic heart failure. PAST SURGICAL HISTORY: 1. Pacemaker/AICD placement. 2. Right total hip arthroplasty. 3. Appendectomy. 4. Hysterectomy. 5. Cholecystectomy. 6. Left knee surgery. 7. Right shoulder surgery. 8. Lumbar spine fusion. ALLERGIES: CARDISOPRODOL, PENICILLIN, NONSTEROIDAL ANTI-INFLAMMATORY DRUGS, TIZANIDINE. MEDICATIONS: A list of her inpatient medications were reviewed. No specific updates were made at th is time. FAMILY HISTORY: Noncontributory. SOCIAL HISTORY: She lives in [place], [place] with her spouse and granddaughter. She previously de nied any alcohol, tobacco or illicit drug use. REVIEW OF SYSTEMS: This cannot be obtained as the patient is currently encephalopathic. PHYSICAL EXAMINATION: VITAL SIGNS: Afebrile, pulse 93, blood pressure 153/86, respirations 24, saturation 92% on 4 liters nasal cannula. GENERAL: The patient is somnolent. As previously mentioned, she required some stimulation in order to wake up. When she does, she is appropriate, but without stimulation she falls back to sleep in le ss than 3 seconds. HEENT: Normocephalic, atraumatic. Sclerae are white. Conjunctivae pale. Oral and nasal mucosa is moist without lesions. LUNGS: Excellent air entry. There is dependent crackles present. HEART: Normal rate. Tachycardic. ABDOMEN: Soft, nontender, nondistended. Bowel sounds are hypoactive. GENITOURINARY: Luis catheter is now in place. MUSCULOSKELETAL: No cyanosis or clubbing. There is no pitting or tenting throughout. NEUROLOGIC: Grossly nonfocal. She is moving all 4 extremities spontaneously. Reflexes are symmetri c throughout. Strength and sensation cannot be assessed under the current conditions. LABORATORY DATA: WBC 7.6, hemoglobin 10.4 and stable, platelets 194,000 and also stable. Creatinine 0.77, BUN 25. Basic metabolic profile is otherwise unremarkable. Liver function studies included d own trending AST and ALT. Glucose 160. PH 7.1, pCO2 85, pO2 is adequate on 5 liters nasal cannula. Urinalysis is unremarkable. Blood cultures x2 and urine culture remain unremarkable. IMAGIN. CT of the brain demonstrates no acute intracranial abnormality. 2. Chest x-ray demonstrates no acute cardiothoracic abnormality. She has got significant volume los s in the right side with apparently the right colon above the liver. Left perihilar fullness is pres ent. Cardiac silhouette is enlarged on this AP film. Multiple leads and wires are present in the he art. ASSESSMENT: 1. Metabolic encephalopathy. 2. Narcotic overdose, suspected. 3. Possible suicide attempt. 4. Chronic atrial fibrillation. PLAN: I really do not think that a new infection is in the urine at this point. The urinalysis that we got appears fairly benign for infectious etiology. Antibiotic will be discontinued. All central ly acting medications will be discontinued. We will intermittently dose her with Narcan. If she req uires frequent dosing, drip will be initiated. We are preparing to move her to the ICU. We will tra nsiently put her on AVAPS. We will target a tidal volume that is slightly elevated. As long as she starts to wake up, no additional blood gases will be obtained. If she fails to wake up well, we will need to secure her airway with intubation Pulmonary Critical Care will continue to follow very clos mora throughout the day. Critical care time: 55 minutes.
--- NOTE | 2017-05-25 11:47 | CON ---
DATE OF CONSULTATION: 05/25/2017 REASON FOR CONSULTATION: Altered mental status. PRIMARY PURCHASING ENGINEER: Martin Belle M.D. HISTORY OF PRESENT ILLNESS: Ms. Lew is a pleasant 82-year-old white female who comes to the hospital for altered mentation. She was noticed by her family member that she seems little bit more altered than normal. She was admitted secondary to this. There was no history of falls, head injuries, fevers or chills or anything that would suggest an infection anywhere. She was admitted for observation. She had a code green overnight yesterday and was transferred over the ICU for respiratory insufficiency. She is currently on a BiPAP, wakes up, answers questions and then just closes her eyes again. She denies any chest pain, tightness, pressure. She does have a history of a cardiomyopathy. She had a nonischemic cardiomyopathy in 2003. She had a biventricular AICD placed and her last EF of 60%-65% in a stress test in August of last year in the office. She has chronic underlying atrial fibrillation, but is mostly paced otherwise, and her stroke prophylaxis has been aspirin due to frequent falls. However, back in November, she had an admission for a urinary tract infection and her Eliquis was restarted at the time and she has been on Eliquis since. PAST MEDICAL HISTORY: 1. Nonischemic cardiomyopathy normalized EF on most recent evaluation in August of last year. 2. Presence of a biventricular AICD. 3. Underlying atrial fibrillation on Eliquis for stroke prophylaxis. 4. Hyperlipidemia. 5. Gastroesophageal reflux disease. 6. Hypertension. 7. Hypothyroidism. 8. Obstructive sleep apnea. 9. Chronic kidney disease, stage 3. 10. Diastolic heart failure. PAST SURGICAL HISTORY: 1. AICD placement in the past. 2. Total hip replacement. 3. Appendectomy. 4. Hysterectomy. 5. Cholecystectomy. 6. Knee surgery on the left. 7. Right shoulder surgery. 8. Lumbar spine fusion. OUTPATIENT MEDICATIONS: 1. Aspirin 81 a day. 2. Sotalol 120 mg b.i.d. 3. Macrodantin 100 mg b.i.d. 4. Coreg 6.25 mg b.i.d. 5. Levothyroxine 125 mcg a day. 6. Gabapentin 300 mg p.o. t.i.d. 7. Lipitor 80 mg at bedtime. 8. Eliquis 5 mg b.i.d. 9. Lasix 4 mg a day. 10. Folic acid. 11. Vitamin D2. 12. Prevacid. 13. Robaxin (methocarbamol) 750 mg p.o. q.i.d. 14. Morphine (MS Contin) 45 mg p.o. b.i.d. 15. Metoclopramide 10 mg q.i.d. 16. Sulfasalazine 500 mg p.o. b.i.d. 17. Ramipril 5 mg a day. 18. Sublingual nitro p.r.n. Most recent heart catheterization was in 2014 showed moderate disease only. ALLERGIES: 1. PENICILLIN. 2. NSAIDs. 3. TIZANIDINE. 4. CARISOPRODOL. FAMILY HISTORY: Noncontributory. SOCIAL HISTORY: She is retired. No alcohol, tobacco or drugs. Lives in [place]. REVIEW OF SYSTEMS: Unobtainable as the patient remains confused. PHYSICAL EXAMINATION: VITAL SIGNS: Temperature 97.6, pulse 101, respiratory rate 27, satting 92% on 50% FiO2 and BiPAP, blood pressure 150/95. GENERAL: Awake, alert. She is oriented to person, has difficulty with time and place, in no distress. HEENT: Normocephalic, atraumatic. NECK: Supple. LUNGS: Clear anteriorly, diminished breath sounds in the bases. CARDIOVASCULAR: S1, S2, no S3, S4. There is grade systolic murmur in right upper sternal border. ABDOMEN: Soft, positive bowel sound. EXTREMITIES: Trace edema. SKIN: Warm and dry. LABORATORY WORK: Reviewed. CBC was reviewed. ABG was reviewed. Chemistries were reviewed. Troponin has been negative x3. UA was unremarkable. Blood cultures have been negative. Urine culture has been negative. EKG was reviewed. ASSESSMENT: 1. Altered mental status. 2. Underlying chronic atrial fibrillation. 3. Chronic anticoagulation with Eliquis. 4. History of nonischemic cardiomyopathy with normalized EF now. PLAN: 1. We will plan on interrogating AICD to make sure there have not been any other major arrhythmias that were treated causing her to have a code green yesterday. Otherwise, her coronary arteries were not an issue. She has had moderate disease in the past. 2. Most recent LV function was normalized that is in a stress test in August of last year. We will get an echocardiogram to reassess LV function. 3. Mental status changes may be related to the amount of pain medication that she is on. We will defer to primary team for this. Thank you for letting us participate in the care of your patient. Dr. Belle , her primary Cardiology will follow up in the morning. PAULINA
--- NOTE | 2017-05-25 13:04 | RAD ---
AP VIEW CHEST: INDICATIONS: Respiratory failure. Hypoxia. FINDINGS: There is cardiomegaly and pulmonary vascular congestion with a small to moderate right pleural effusi on superimposed on elevation of the right hemidiaphragm. There is a tiny left pleural effusion. AIC D is unchanged. Instrumentation of both shoulders appears similar. IMPRESSION: Findings of congestive heart failure or volume overload. POS: [facility]
[2017-05-25] MEDS: Aspirin 81 mg Enteric Coated Tablet PO SCH (14:19)
[2017-05-25] MEDS: Famotidine 20 MG TAB PO SCH ×2 (14:19→22:03)
[2017-05-25] MEDS: Apixaban 5 MG TAB PO SCH ×2 (14:19→22:02)
[2017-05-25] MEDS ORDERED: Ramipril 5 MG CAP PO SCH (14:30)
[2017-05-25] MEDS: Ramipril 5 MG CAP PO SCH (14:42)
[2017-05-25] MEDS: Sotalol HCl 80 MG TAB PO SCH ×2 (14:43→22:03)
[2017-05-25] MEDS: Gabapentin 300 MG CAP PO SCH ×2 (14:44→22:03)
--- NOTE | 2017-05-25 15:02 | EKG ---
Test Reason : Blood Pressure : / mmHG Vent. Rate : 096 BPM Atrial Rate : 101 BPM P-R Int : 000 ms QRS Dur : 128 ms QT Int : 358 ms P-R-T Axes : 000 -03 081 degrees QTc Int : 452 ms Ventricular-paced rhythm Abnormal ECG Confirmed by BHAVANA HICKS ([id number]), acquisitions editor PATRICE GARCIA ([id number] on 05/25/2017 3:00:42 PM Referred By: Confirmed By:BHAVANA HICKS
[2017-05-25] MEDS: Carvedilol 6.25 MG TAB PO SCH (17:35)
[2017-05-25] MEDS ORDERED: Naloxone HCl 0.4 mg/ml Vial ONE (19:32)
[2017-05-25] MEDS ORDERED: Naloxone HCl 0.4 mg/ml Vial IV SCH (19:45)
[2017-05-25 22:30] LABS: CO2 Tension 65.3 mmHg (35.0-45.0); pH, Arterial 7.33 (7.35-7.45)
[2017-05-25 22:31] LABS: ALV-art Gradient 41.085 (0-20); Actual Bicarbonate (HCO3a) 33.6 mEq/L (22-26); Base Excess (BEa) 6.3 mEq/L (0 (+/-) 2.5); Calcium, Ionized 1.4 mmol/L (1.12-1.30); Hematocrit-ABG 34.7 % (36.0-47.0); Hemoglobin (Hb) 9.6 g/dL (12.0-16.0); O2 Tension (PaO2) 69.8 mmHg (80.0-100.0); Puncture Site RRAD
[2017-05-26] MEDS: Levothyroxine Sodium 125 MCG TAB PO SCH (04:45)
[2017-05-26 04:53] LABS: ALT (SGPT) 105 U/L (8-55); AST (SGOT) 66 U/L (5-34); Albumin 3.7 g/dL (3.4-4.8); Alkaline Phosphatase 78 U/L (40-150); Anion Gap 9 mmol/L (10-20); BUN (Urea Nitrogen) 24 mg/dL (9.8-20.1); Bilirubin, Total 0.7 mg/dL (0.2-1.2); Calc. Creatinine Clearance 68 mL/min (70-130); Calcium 10.2 mg/dL (7.8-10.44); Carbon Dioxide 36 mmol/L (23-31); Chloride 103 mmol/L (98-107); Estimated GFR-MDRD 73; Globulin 2.6 g/dL (2.4-3.5); Glucose 105 mg/dL (83-110); Potassium 4.2 mmol/L (3.5-5.1); Protein, Total 6.3 g/dL (6.0-8.3); Sodium 144 mmol/L (136-145)
[2017-05-26 05:19] LABS: Acanthocytes SLIGHT = 1-5 cells (100X) (None Seen); Hemoglobin 9.6 g/dL (12.0-16.0); Hypochromia SLIGHT = 6-15 cells (100X) (0-5/hpf); Lymphocytes 7 % (21-51); MDiff Complete? YES; Mean Corpuscular Hemoglobin 22.4 pg (27.0-31.0); Mean Corpuscular Volume 74.7 fl (81.0-99.0); Mean Platelet Volume 9.3 fL (7.4-10.4); Microcytosis SLIGHT = 6-15 cells (100X) (0-5/hpf); Monocytes 10 % (0-10); Neutrophil 83 % (42-75); Nucleated RBC 1 % (0); PLT Morphology Comment Appears Adequate; Platelet Count 187 thou/uL (130-400); RBC Distribution Width 19.3 % (11.5-14.5); Red Blood Cell (RBC) Count 4.29 mill/uL (4.20-5.40); White Blood Cell (WBC) Count 7.7 thou/uL (4.8-10.8)
[2017-05-26] MEDS: Apixaban 5 MG TAB PO SCH (07:32)
[2017-05-26] MEDS: Aspirin 81 mg Enteric Coated Tablet PO SCH (07:32)
[2017-05-26] MEDS: Carvedilol 6.25 MG TAB PO SCH ×3 (07:32→17:37)
[2017-05-26] MEDS: Ramipril 5 MG CAP PO SCH (07:33)
[2017-05-26] MEDS: Sotalol HCl 80 MG TAB PO SCH ×2 (07:33→19:59)
[2017-05-26] MEDS: Famotidine 20 MG TAB PO SCH ×2 (07:33→19:59)
[2017-05-26] MEDS: Gabapentin 300 MG CAP PO SCH ×3 (07:33→19:59)
[2017-05-26 08:57] LABS: Actual Bicarbonate (HCO3a) 31.7 mEq/L (22-26); Base Excess (BEa) 6.3 mEq/L (0 (+/-) 2.5); CO2 Tension 50.6 mmHg (35.0-45.0); Calcium, Ionized 1.4 mmol/L (1.12-1.30); Hematocrit-ABG 31.3 % (36.0-47.0); Hemoglobin (Hb) 9.1 g/dL (12.0-16.0); O2 Tension (PaO2) 74.8 mmHg (80.0-100.0); Puncture Site RRA; pH, Arterial 7.42 (7.35-7.45)
[2017-05-26] MEDS ORDERED: Cefepime 2 GM in Sodium Chloride 0.9% 100 ML IVPB SCH (09:00)
[2017-05-26] MEDS: Cefepime 2 GM, Syringe 2.5 ML in Sodium Chloride 0.9% 10 ML SLOW IVP SCH ×2 (09:34→19:58)
[2017-05-26] MEDS: Clindamycin/D5W 600 MG in Premix Bag 1 BAG IVPB SCH ×2 (09:44→17:14)
[2017-05-26] MEDS ORDERED: Metoprolol Tartrate 5 MG/5 ML VIAL IVP SCH (10:00)
[2017-05-26] MEDS ORDERED: Digoxin 0.5 MG/2 ML AMP SLOW IVP SCH (10:00)
--- NOTE | 2017-05-26 11:04 | RAD ---
CHEST ONE VIEW: HISTORY: An 82-year-old female with a history of follow-up pneumonia. COMPARISON: 05/25/2017 FINDINGS: Patchy bilateral interstitial and alveolar opacities, mostly in the lower lung zones, greater on the right side, with some bilateral vascular congestion. The degree of congestion appears to be slightly improved, although this may be because this is an upright study, whereas the previous study was a se miupright study. Heart size is within normal limits. Left ICD. IMPRESSION: 1. Persistent bilateral opacities, particularly confluent in the right lower lobe, evidence for pneu monia. 2. Patchy increased linear and interstitial markings bilaterally, evidence for some vascular congest ion, showing probable slight improvement. Continued short-term followup for clearing or stability. POS: [facility]
--- NOTE | 2017-05-26 11:08 | PDOC.PN ---
- Subjective Encounter Start Date: 05/26/17 Encounter Start Time: 11:00 Subjective: f/u acute resp failure, encephalopathy. Off BiPAP currently and maintaining -: O2 saturations on NC. Pt and family deciding to pursue palliative measures -: with DNR status and no [facility]. - Objective Resuscitation Status: Resuscitation Status DNR:Do Not Resuscitate MAR Reviewed: Yes Vital Signs & Weight: Vital Signs (12 hours) Temp Pulse Resp Pulse Ox 05/26/17 10:01 103 H 05/26/17 08:00 98.4 F 103 H 14 97 05/26/17 07:25 115 H 05/26/17 03:00 99 F Weight Weight 160 lb Most Recent Monitor Data Heart Rate from ECG 113 NIBP 170/95 NIBP BP-Mean 118 Respiration from ECG 31 SpO2 95 I&O: 05/25/17 05/26/17 05/27/17 06:59 06:59 06:59 Intake Total 2164 70 Output Total 1100 3070 388 Balance 1064 -3000 -388 Result Diagrams: 05/26/17 04:20 05/26/17 04:20 Radiology Reviewed by me: Yes (2D echo - EF 55%, GERALD, severe TR) EKG Reviewed by me: Yes (Tele - A-fib variabe rate) Phys Exam - Physical Examination agitated, resp distress, responds to questions HEENT: PERRLA, oral pharynx no lesions Neck: no JVD, supple coarse sounds bilat, diminished in bases tachycardic Cardiovascular: irregular Gastrointestinal: soft, non-tender, no distention, positive bowel sounds Musculoskeletal: no edema, pulses present Neurological: normal sensation, moves all 4 limbs A x O x 2 Skin: normal turgor, cap refill <2 seconds Dx/Plan (1) Acute on chronic respiratory failure with hypoxia and hypercapnia Code(s): J96.21 - ACUTE AND CHRONIC RESPIRATORY FAILURE WITH HYPOXIA; J96.22 - ACUTE AND CHRONIC RESPIRATORY FAILURE WITH HYPERCAPNIA Status: Acute Comment : Secondary to narcotic OD, BiPAP NIMV d/c'd, supportive mgmt, Pulmonology consulted, PCXR showing bilat patchy infiltrates (2) Acute metabolic encephalopathy Code(s): G93.41 - METABOLIC ENCEPHALOPATHY Status: Acute Comment: Suspect due to narcotic OD and polypharmacy, Narcan given in Code Green with some improvement, improved after narcotic holiday (3) UTI (urinary tract infection) Status: Suspected Qualifiers: Urinary tract infection type: acute cystitis Hematuria presence: without hematuria Qualified Code(s): N30.00 - Acute cystitis without hematuria Comment: Suspected but current Ucx negative but Ucx 05/19/17 + e. coli, continue Cefepime and Clindamycin (4) CKD (chronic kidney disease), stage II Code(s): N18.2 - CHRONIC KIDNEY DISEASE, STAGE 2 (MILD) Status: Chronic Comment: Stable, avoid nephrotoxic meds and contrast (5) Transaminitis Code(s): R74.0 - NONSPEC ELEV OF LEVELS OF TRANSAMNS & LACTIC ACID DEHYDRGNSE Status: Acute Comment: ? etiology, improving with conservative mgmt (6) Microcytic anemia Code(s): D50.9 - IRON DEFICIENCY ANEMIA, UNSPECIFIED Status: Chronic Comment : Stable, no active blood loss (7) Atrial fibrillation Code(s): I48.91 - UNSPECIFIED ATRIAL FIBRILLATION Status: Chronic Qualifiers: Atrial fibrillation type: chronic Qualified Code(s): I48.2 - Chronic atrial fibrillation Comment: V-paced, continue rate-control measures, Lovenox for anticoagulation (8) Polypharmacy Code(s): Z79.899 - OTHER MASTER POLICE DETECTIVE (CURRENT) DRUG THERAPY Status: Chronic Comment: Longstanding, transitioning to Hospice care (9) Chronic pain disorder Code(s): G89.4 - CHRONIC PAIN SYNDROME Status: Chronic Comment: Longstanding narcotic use - Plan plan discussed w/ family, continue antibiotics, drug abuse social worker, DVT proph w/ SCDs Continue supportive mgmt -: Family and pt wishing to pursue Hospice care -: Transfer to medical -: Morphine Sulfate IV prn -: D/C AICD function per family request * Ativan PRN agitation * O2 prn to maintain saturations * Poor prognosis
[2017-05-26] MEDS: Morphine 4 MG/ML VIAL SLOW IVP PRN ×4 (11:29→22:59)
--- NOTE | 2017-05-26 15:24 | PRG ---
DATE OF SERVICE: 05/26/2017 SUBJECTIVE: This is an elderly female, 82 years old, severely deconditioned. She was placed on ____ _. She can barely verbalize. OBJECTIVE: VITAL SIGNS: Sats are 94 on BiPAP, pulse 109, blood pressure 154/89, respirations 30. CHEST: Revea ls extensive rhonchi and crackles, right greater than left. CARDIAC: Normal S1, S2, no gallops. ABDOMEN: Soft, no mass. X-RAY FINDINGS: X-ray shows a right-sided infiltrate, elevated hemidiaphragm. LABORATORY DATA: White count 7000, H&H is 9 and 32. PO2 was 69, pCO2 65, pH 7.33 yesterday on BiPAP . Her creatinine is normal. IMPRESSION: Acute on chronic respiratory failure, superimposed pneumonia probably aspiration, severe deconditioning, chronic elevated diaphragm with atrial fibrillation. PLAN: Steroids, neb treatments are initiated. I spoke to the at length. Mr. Lew who said he is unable to come because of his severe disability, but he does not want the patient to be intuba lloyd. We are going to make her DNR. I have strongly advised to come over and see his . In the meantim e, neb treatments, steroids, and antibiotics. One-half hour critical care time.
[2017-05-26] MEDS: Enoxaparin Sodium 80 MG/0.8 ML SYRINGE SC SCH (19:58)
[2017-05-27] MEDS: Clindamycin/D5W 600 MG in Premix Bag 1 BAG IVPB SCH ×4 (01:00→16:59)
[2017-05-27] MEDS: Morphine 4 MG/ML VIAL SLOW IVP PRN ×5 (03:51→19:44)
[2017-05-27] MEDS: Levothyroxine Sodium 125 MCG TAB PO SCH (04:43)
[2017-05-27] MEDS: Lorazepam 2 MG/ML VIAL SLOW IVP PRN ×3 (05:14→14:59)
[2017-05-27] MEDS: Digoxin 0.5 MG/2 ML AMP SLOW IVP SCH (08:06)
[2017-05-27] MEDS: Carvedilol 6.25 MG TAB PO SCH ×2 (08:14→16:30)
[2017-05-27] MEDS: Gabapentin 300 MG CAP PO SCH ×3 (08:14→19:48)
[2017-05-27] MEDS: Ramipril 5 MG CAP PO SCH (08:14)
[2017-05-27] MEDS: Aspirin 81 mg Enteric Coated Tablet PO SCH (08:14)
[2017-05-27] MEDS: Famotidine 20 MG TAB PO SCH ×2 (08:14→19:48)
[2017-05-27] MEDS: Sotalol HCl 80 MG TAB PO SCH ×2 (08:15→19:49)
[2017-05-27] MEDS: Cefepime 2 GM, Syringe 2.5 ML in Sodium Chloride 0.9% 10 ML SLOW IVP SCH ×2 (08:16→19:48)
[2017-05-27] MEDS: Enoxaparin Sodium 80 MG/0.8 ML SYRINGE SC SCH ×2 (08:17→19:48)
--- NOTE | 2017-05-27 13:43 | PDOC.PN ---
- Subjective Encounter Start Date: 05/27/17 Encounter Start Time: 12:00 Patient is seen today, drowsy and lethargic, No family meeber around, No concern snoted. pt On Hospice care waiting on transfer to Inpatient. - Objective Resuscitation Status: Resuscitation Status DNR:Do Not Resuscitate MAR Reviewed: Yes Vital Signs & Weight: Vital Signs (12 hours) Temp Pulse Resp BP Pulse Ox 05/27/17 08:15 100 05/27/17 08:06 100 05/27/17 08:00 99.9 F H 100 32 H 95 05/27/17 07:38 99.9 F H 100 36 H 143/65 H 95 Weight Weight 160 lb Most Recent Monitor Data Heart Rate from ECG 89 NIBP 155/80 NIBP BP-Mean 95 Respiration from ECG 33 SpO2 96 I&O: 05/26/17 05/27/17 05/28/17 06:59 06:59 06:59 Intake Total 70 163 Output Total 3070 1888 Balance -3000 -1725 Result Diagrams: 05/26/17 04:20 05/26/17 04:20 Radiology Reviewed by me: Yes Phys Exam - Physical Examination HEENT: PERRLA, moist MMs Neck: no nodes, no JVD Respiratory: no wheezing, no rales Cardiovascular: RRR, no significant murmur Gastrointestinal: soft, non-tender Musculoskeletal: no edema, pulses present Dx/Plan (1) Acute metabolic encephalopathy Code(s): G93.41 - METABOLIC ENCEPHALOPATHY Status: Acute Comment: Suspect due to narcotic OD and polypharmacy, Narcan given in Code Green with some improvement, improved after narcotic holiday (2) Acute on chronic respiratory failure with hypoxia and hypercapnia Code(s): J96.21 - ACUTE AND CHRONIC RESPIRATORY FAILURE WITH HYPOXIA; J96.22 - ACUTE AND CHRONIC RESPIRATORY FAILURE WITH HYPERCAPNIA Status: Acute Comment : Secondary to narcotic OD, BiPAP NIMV d/c'd, supportive mgmt, Pulmonology consulted, PCXR showing bilat patchy infiltrates (3) CKD (chronic kidney disease), stage II Code(s): N18.2 - CHRONIC KIDNEY DISEASE, STAGE 2 (MILD) Status: Chronic Comment: Stable, avoid nephrotoxic meds and contrast (4) Polypharmacy Code(s): Z79.899 - OTHER SPECIAL EDUCATION AIDE (CURRENT) DRUG THERAPY Status: Chronic Comment: Longstanding, transitioning to Hospice care (5) Anemia, normocytic normochromic Code(s): D64.9 - ANEMIA, UNSPECIFIED Status: Chronic (6) Atrial fibrillation Code(s): I48.91 - UNSPECIFIED ATRIAL FIBRILLATION Status: Chronic Qualifiers: Atrial fibrillation type: chronic Qualified Code(s): I48.2 - Chronic atrial fibrillation Comment: V-paced, continue rate-control measures, Lovenox for anticoagulation - Plan cont current plan of care, respiratory therapy, incentive spirometry, DVT proph w/lovenox * . - Discharge Day Encounter end time: 12:25 Review of Systems - Review of Systems Other: Unable to get due to pt Altewred mental status - Medications/Allergies Allergies/Adverse Reactions: Allergies Allergy/AdvReac Type Severity Reaction Status Date / Time carisoprodol Allergy Unknown Verified 12/03/16 01:09 Penicillins Allergy Unknown Verified 12/03/16 01:09 NSAIDS (Non-Steroidal Allergy Verified 12/03/16 01:48 Anti-Inflamma tizanidine [From Zanaflex] Allergy Verified 12/03/16 01:48 Medications: Current Medications Acetaminophen (Tylenol) 1,000 mg PO Q6H PRN PRN Reason: Headache/Fever or Mild Pain Last Admin: 05/24/17 08:05 Dose: 1,000 mg Albuterol/Ipratropium (Duoneb) 3 ml NEB [id number] [facility] Last Admin: 05/27/17 11:00 Dose: Not Given Aspirin (Ecotrin) 81 mg PO DAILY [facility] Last Admin: 05/27/17 08:14 Dose: Not Given Carvedilol (Coreg) 6.25 mg PO BID-WM [facility] Last Admin: 05/27/17 08:14 Dose: Not Given Clonidine (Catapres) 0.1 mg PO Q4H PRN PRN Reason: Systolic BP > 180 Digoxin (Lanoxin) 0.25 mg SLOW IVP QAM [facility] Last Admin: 05/27/17 08:06 Dose: 0.25 mg Enoxaparin Sodium (Lovenox) 70 mg SC 0900,2100 [facility] Last Admin: 05/27/17 08:17 Dose: Not Given Famotidine (Pepcid) 20 mg PO BID [facility] Last Admin: 05/27/17 08:14 Dose: Not Given Gabapentin (Neurontin) 300 mg PO TID [facility] Last Admin: 05/27/17 08:14 Dose: Not Given Hydralazine HCl (Apresoline) 10 mg SLOW IVP Q4H PRN PRN Reason: Systolic BP > 180 Last Admin: 05/25/17 10:42 Dose: 10 mg Clindamycin Phosphate/Dextrose (600 mg/ Device) 50 mls @ 100 mls/hr IVPB 0100, 0900,1700 [facility] Last Admin: 05/27/17 09:37 Dose: 50 mls Cefepime HCl 2 gm/ Syringe 2.5 (ml/ Sodium Chloride) 12.5 mls @ 150 mls/hr SLOW IVP Q12HR [facility] Last Admin: 05/27/17 08:16 Dose: Not Given Levothyroxine Sodium (Synthroid) 125 mcg PO 0600 [facility] Last Admin: 05/27/17 04:43 Dose: Not Given Lorazepam (Ativan) 1 mg SLOW IVP Q4H PRN PRN Reason: Anxiety/Agitation Last Admin: 05/27/17 09:30 Dose: 1 mg Methylprednisolone Sodium Succinate (Solu-Medrol) 40 mg IVP Q6HR [facility] Last Admin: 05/27/17 05:22 Dose: Not Given Morphine Sulfate (Morphine) 4 mg SLOW IVP Q3H PRN PRN Reason: Moderate to Severe Pain (6-10) Last Admin: 05/27/17 12:34 Dose: 4 mg Ondansetron HCl (Zofran Odt) 4 mg PO Q6H PRN PRN Reason: Nausea/Vomiting Ondansetron HCl (Zofran) 4 mg IVP Q6H PRN PRN Reason: Nausea/Vomiting Ramipril (Altace) 10 mg PO DAILY [facility] Last Admin: 05/27/17 08:14 Dose: Not Given Sodium Chloride (Flush - Normal Saline) 10 ml IVF Q12HR [facility] Last Admin: 05/27/17 08:14 Dose: 10 ml Sodium Chloride (Flush - Normal Saline) 10 ml IVF PRN PRN PRN Reason: Saline Flush Last Admin: 05/27/17 05:14 Dose: 10 ml Sotalol HCl (Betapace) 120 mg PO BID [facility] Last Admin: 05/27/17 08:15 Dose: Not Given
--- NOTE | 2017-05-27 15:51 | PRG ---
DATE OF SERVICE: 05/27/2017 SUBJECTIVE: Ms. Lew remains unresponsive, encephalopathic. OBJECTIVE: VITAL SIGNS: Sats are 95 on 3 liters, temperature 99, pulse 100, and blood pressure 140/80. CHEST: Bilateral rhonchi. CARDIAC: Normal S1, S2. No gallops. ABDOMEN: Soft, no masses. She is a DNR as per her wishes. She is comfort care only. IMPRESSION: 1. Multiorgan failure. 2. Metabolic encephalopathy. 3. Renal failure. 4. Congestive heart failure. 5. Respiratory failure. PLAN: Comfort care.
[2017-05-28] MEDS: Clindamycin/D5W 600 MG in Premix Bag 1 BAG IVPB SCH ×3 (00:19→16:27)
[2017-05-28] MEDS: Morphine 4 MG/ML VIAL SLOW IVP PRN ×2 (00:19→13:36)
[2017-05-28] MEDS: Levothyroxine Sodium 125 MCG TAB PO SCH (05:16)
[2017-05-28] MEDS: Carvedilol 6.25 MG TAB PO SCH ×2 (09:32→16:27)
[2017-05-28] MEDS: Aspirin 81 mg Enteric Coated Tablet PO SCH (09:33)
[2017-05-28] MEDS: Cefepime 2 GM, Syringe 2.5 ML in Sodium Chloride 0.9% 10 ML SLOW IVP SCH ×3 (09:33→20:19)
[2017-05-28] MEDS: Digoxin 0.5 MG/2 ML AMP SLOW IVP SCH (09:33)
[2017-05-28] MEDS: Famotidine 20 MG TAB PO SCH ×2 (09:33→21:28)
[2017-05-28] MEDS: Sotalol HCl 80 MG TAB PO SCH ×2 (09:34→21:29)
[2017-05-28] MEDS: Gabapentin 300 MG CAP PO SCH ×3 (09:34→21:29)
[2017-05-28] MEDS: Enoxaparin Sodium 80 MG/0.8 ML SYRINGE SC SCH ×2 (09:34→20:18)
[2017-05-28] MEDS: Ramipril 5 MG CAP PO SCH (09:34)
[2017-05-28] MEDS: Lorazepam 2 MG/ML VIAL SLOW IVP PRN ×2 (11:11→16:22)
--- NOTE | 2017-05-28 14:26 | PDOC.PN ---
- Subjective Encounter Start Date: 05/28/17 Encounter Start Time: 09:00 Windy is sen today, drowsy, No other concerns noted. - Objective Resuscitation Status: Resuscitation Status DNR:Do Not Resuscitate MAR Reviewed: Yes Vital Signs & Weight: Vital Signs (12 hours) Temp Pulse Resp BP Pulse Ox 05/28/17 14:10 96 20 05/28/17 10:10 95 20 05/28/17 09:34 95 05/28/17 09:33 95 05/28/17 08:08 99.5 F 95 29 H 94 L 05/28/17 07:33 99.5 F 95 29 H 165/81 H 94 L 05/28/17 06:00 32 H 05/28/17 02:30 87 20 97 Weight Weight 160 lb Most Recent Monitor Data Heart Rate from ECG 89 NIBP 155/80 NIBP BP-Mean 95 Respiration from ECG 33 SpO2 96 I&O: 05/27/17 05/28/17 05/29/17 06:59 06:59 06:59 Intake Total 163 100 Output Total 1888 475 Balance -1725 -375 Result Diagrams: 05/26/17 04:20 05/26/17 04:20 Radiology Reviewed by me: Yes Phys Exam - Physical Examination HEENT: PERRLA, moist MMs Neck: no nodes, no JVD Respiratory: no wheezing, no rales Cardiovascular: RRR, no significant murmur Gastrointestinal: soft, non-tender Musculoskeletal: no edema, pulses present Neurological: non-focal, normal sensation Lymphatic: no nodes Psychiatric: normal affect, A&O x 3 Dx/Plan (1) Acute metabolic encephalopathy Code(s): G93.41 - METABOLIC ENCEPHALOPATHY Status: Acute Comment: Suspect due to narcotic OD and polypharmacy, resolved now. (2) Acute on chronic respiratory failure with hypoxia and hypercapnia Code(s): J96.21 - ACUTE AND CHRONIC RESPIRATORY FAILURE WITH HYPOXIA; J96.22 - ACUTE AND CHRONIC RESPIRATORY FAILURE WITH HYPERCAPNIA Status: Acute Comment : Secondary to narcotic OD, BiPAP NIMV d/c'd, supportive mgmt, Pulmonology consulted, PCXR showing bilat patchy infiltrates (3) CKD (chronic kidney disease), stage II Code(s): N18.2 - CHRONIC KIDNEY DISEASE, STAGE 2 (MILD) Status: Chronic Comment: Stable, avoid nephrotoxic meds and contrast (4) Polypharmacy Code(s): Z79.899 - OTHER [facility] (CURRENT) DRUG THERAPY Status: Chronic Comment: Longstanding, transitioning to Hospice care (5) Anemia, normocytic normochromic Code(s): D64.9 - ANEMIA, UNSPECIFIED Status: Chronic (6) Atrial fibrillation Code(s): I48.91 - UNSPECIFIED ATRIAL FIBRILLATION Status: Chronic Qualifiers: Atrial fibrillation type: chronic Qualified Code(s): I48.2 - Chronic atrial fibrillation Comment: V-paced, continue rate-control measures, Lovenox for anticoagulation - Plan cont current plan of care, PT/OT, social and human services assistant, respiratory therapy, incentive spirometry * . Review of Systems - Review of Systems Eyes: negative: Pain, Vision Change, Conjunctivae Inflammation, Eyelid Inflammation, Redness, Other ENT: negative: Ear Pain, Ear Discharge, Nose Pain, Nose Discharge, Nose Congestion, Mouth Pain, Mouth Swelling, Throat Pain, Throat Swelling, Other Respiratory: negative: Cough, Dry, Shortness of Breath, Hemoptysis, SOB with Excertion, Pleuritic Pain, Sputum, Wheezing Cardiovascular: negative: chest pain, palpitations, orthopnea, paroxysmal nocturnal dyspnea, edema, light headedness, other Musculoskeletal: negative: Neck Pain, Shoulder Pain, Arm Pain, Back Pain, Hand Pain, Leg Pain, Foot Pain, Other - Medications/Allergies Allergies/Adverse Reactions: Allergies Allergy/AdvReac Type Severity Reaction Status Date / Time carisoprodol Allergy Unknown Verified 12/03/16 01:09 Penicillins Allergy Unknown Verified 12/03/16 01:09 NSAIDS (Non-Steroidal Allergy Verified 12/03/16 01:48 Anti-Inflamma tizanidine [From Zanaflex] Allergy Verified 12/03/16 01:48 Medications: Current Medications Acetaminophen (Tylenol) 1,000 mg PO Q6H PRN PRN Reason: Headache/Fever or Mild Pain Last Admin: 05/24/17 08:05 Dose: 1,000 mg Albuterol/Ipratropium (Duoneb) 3 ml NEB [id number] [facility] Last Admin: 05/28/17 14:10 Dose: 3 ml Aspirin (Ecotrin) 81 mg PO DAILY [facility] Last Admin: 05/28/17 09:33 Dose: Not Given Carvedilol (Coreg) 6.25 mg PO BID-WM [facility] Last Admin: 05/28/17 09:32 Dose: Not Given Clonidine (Catapres) 0.1 mg PO Q4H PRN PRN Reason: Systolic BP > 180 Digoxin (Lanoxin) 0.25 mg SLOW IVP QAM [facility] Last Admin: 05/28/17 09:33 Dose: Not Given Enoxaparin Sodium (Lovenox) 70 mg SC 0900,2100 [facility] Last Admin: 05/28/17 09:34 Dose: Not Given Famotidine (Pepcid) 20 mg PO BID [facility] Last Admin: 05/28/17 09:33 Dose: Not Given Gabapentin (Neurontin) 300 mg PO TID [facility] Last Admin: 05/28/17 09:34 Dose: Not Given Hydralazine HCl (Apresoline) 10 mg SLOW IVP Q4H PRN PRN Reason: Systolic BP > 180 Last Admin: 05/25/17 10:42 Dose: 10 mg Clindamycin Phosphate/Dextrose (600 mg/ Device) 50 mls @ 100 mls/hr IVPB 0100, 0900,1700 [facility] Last Admin: 05/28/17 09:33 Dose: Not Given Cefepime HCl 2 gm/ Syringe 2.5 (ml/ Sodium Chloride) 12.5 mls @ 150 mls/hr SLOW IVP Q12HR [facility] Last Admin: 05/28/17 09:33 Dose: Not Given Levothyroxine Sodium (Synthroid) 125 mcg PO 0600 [facility] Last Admin: 05/28/17 05:16 Dose: Not Given Lorazepam (Ativan) 1 mg SLOW IVP Q4H PRN PRN Reason: Anxiety/Agitation Last Admin: 05/28/17 11:11 Dose: 1 mg Methylprednisolone Sodium Succinate (Solu-Medrol) 40 mg IVP Q6HR [facility] Last Admin: 05/28/17 13:18 Dose: Not Given Morphine Sulfate (Morphine) 4 mg SLOW IVP Q3H PRN PRN Reason: Moderate to Severe Pain (6-10) Last Admin: 05/28/17 13:36 Dose: 4 mg Ondansetron HCl (Zofran Odt) 4 mg PO Q6H PRN PRN Reason: Nausea/Vomiting Ondansetron HCl (Zofran) 4 mg IVP Q6H PRN PRN Reason: Nausea/Vomiting Ramipril (Altace) 10 mg PO DAILY [facility] Last Admin: 05/28/17 09:34 Dose: Not Given Sodium Chloride (Flush - Normal Saline) 10 ml IVF Q12HR [facility] Last Admin: 05/28/17 09:34 Dose: 10 ml Sodium Chloride (Flush - Normal Saline) 10 ml IVF PRN PRN PRN Reason: Saline Flush Last Admin: 05/28/17 00:20 Dose: 10 ml Sotalol HCl (Betapace) 120 mg PO BID [facility] Last Admin: 05/28/17 09:34 Dose: Not Given
--- NOTE | 2017-05-28 14:50 | PRG ---
DATE OF SERVICE: 05/28/2017 SUBJECTIVE: This morning, she is unresponsive. She was given some Ativan. Respirations unlabored. OBJECTIVE: VITAL SIGNS: Sats are 94% on 3 liters, respirations 29, pulse 95, temperature 99 and blood pressure 130/80. CHEST: Revealed rhonchi. CARDIAC: Normal S1 and S2. No gallops. ABDOMEN: Soft. No masses. IMPRESSION: Respiratory failure, renal failure and congestive heart failure. PLAN: Continue comfort care.
[2017-05-29] MEDS: Clindamycin/D5W 600 MG in Premix Bag 1 BAG IVPB SCH ×2 (01:00→13:03)
[2017-05-29] MEDS: Levothyroxine Sodium 125 MCG TAB PO SCH (03:45)
[2017-05-29] MEDS: Digoxin 0.5 MG/2 ML AMP SLOW IVP SCH ×2 (10:06→10:23)
[2017-05-29] MEDS: Enoxaparin Sodium 80 MG/0.8 ML SYRINGE SC SCH ×2 (10:08→10:22)
[2017-05-29] MEDS: Aspirin 81 mg Enteric Coated Tablet PO SCH (10:20)
[2017-05-29] MEDS: Cefepime 2 GM, Syringe 2.5 ML in Sodium Chloride 0.9% 10 ML SLOW IVP SCH (10:20)
[2017-05-29] MEDS: Carvedilol 6.25 MG TAB PO SCH (10:20)
[2017-05-29] MEDS: Sotalol HCl 80 MG TAB PO SCH (10:21)
[2017-05-29] MEDS: Gabapentin 300 MG CAP PO SCH (10:21)
[2017-05-29] MEDS: Ramipril 5 MG CAP PO SCH (10:21)
[2017-05-29] MEDS: Famotidine 20 MG TAB PO SCH (10:21)
[2017-05-29 13:15] LABS: #Lymphocytes 1.2 thou/uL (1.20-3.40); #Monocytes 0.9 thou/uL (0.11-0.59); #Neutrophils 8.2 thou/uL (1.40-6.50); %Basophils 0.3 % (0.0-1.0); %Eosinophils 0.1 % (0.0-10.0); %Lymphocytes 11.4 % (21.0-51.0); %Monocytes 8.6 % (0.0-10.0); %Neutrophils 79.7 % (42.0-75.0); Hemoglobin 12.4 g/dL (12.0-16.0); Mean Corpuscular HGB CONC 29.7 g/dL (32.0-36.0); Mean Corpuscular Hemoglobin 22.5 pg (27.0-31.0); Mean Corpuscular Volume 75.7 fl (81.0-99.0); Mean Platelet Volume 5.5 fL (7.4-10.4); Platelet Count 196 thou/uL (130-400); Red Blood Cell (RBC) Count 5.51 mill/uL (4.20-5.40); White Blood Cell (WBC) Count 10.2 thou/uL (4.8-10.8)
[2017-05-29 13:17] LABS: Hypochromia SLIGHT = 6-15 cells (100X) (0-5/hpf); MDiff Complete? YES; Microcytosis SLIGHT = 6-15 cells (100X) (0-5/hpf); PLT Morphology Comment Appears Adequate; Polychromasia SLIGHT = 2-3 cells (100X) (0-2/hpf)
--- NOTE | 2017-05-29 14:46 | PDOC.PN ---
- Subjective Encounter Start Date: 05/29/17 Encounter Start Time: 10:00 -: non-verbal Discussed with pts neice at bedside, pt remains Drowsy. she is altered pulled out her Midline. - Objective Resuscitation Status: Resuscitation Status DNR:Do Not Resuscitate MAR Reviewed: Yes Vital Signs & Weight: Vital Signs (12 hours) Temp Pulse Resp Pulse Ox 05/29/17 13:23 109 H 18 92 L 05/29/17 10:39 116 H 18 95 05/29/17 10:23 114 H 05/29/17 10:21 114 H 05/29/17 08:00 98.7 F 114 H 18 89 L 05/29/17 07:05 85 16 98 05/29/17 04:26 95 Weight Weight 160 lb Most Recent Monitor Data Heart Rate from ECG 89 NIBP 155/80 NIBP BP-Mean 95 Respiration from ECG 33 SpO2 96 I&O: 05/28/17 05/29/17 05/30/17 06:59 06:59 06:59 Intake Total 100 95 Output Total 475 1750 Balance -375 1651 Result Diagrams: 05/29/17 12:30 05/26/17 04:20 Radiology Reviewed by me: Yes Phys Exam - Physical Examination HEENT: PERRLA, moist MMs Neck: no nodes, no JVD Respiratory: no wheezing, no rales Cardiovascular: RRR, no significant murmur Gastrointestinal: non-tender Musculoskeletal: no edema, pulses present Neurological: non-focal, normal sensation Dx/Plan (1) Acute metabolic encephalopathy Code(s): G93.41 - METABOLIC ENCEPHALOPATHY Status: Acute Comment: Suspect due to narcotic OD and polypharmacy, resolved now. (2) Acute on chronic respiratory failure with hypoxia and hypercapnia Code(s): J96.21 - ACUTE AND CHRONIC RESPIRATORY FAILURE WITH HYPOXIA; J96.22 - ACUTE AND CHRONIC RESPIRATORY FAILURE WITH HYPERCAPNIA Status: Acute Comment : Secondary to narcotic OD, BiPAP NIMV d/c'd, supportive mgmt, Pulmonology consulted, PCXR showing bilat patchy infiltrates (3) CKD (chronic kidney disease), stage II Code(s): N18.2 - CHRONIC KIDNEY DISEASE, STAGE 2 (MILD) Status: Chronic Comment: Stable, avoid nephrotoxic meds and contrast (4) Polypharmacy Code(s): Z79.899 - OTHER MEDICAL ADVISOR (CURRENT) DRUG THERAPY Status: Chronic Comment: Longstanding, transitioning to Hospice care (5) Anemia, normocytic normochromic Code(s): D64.9 - ANEMIA, UNSPECIFIED Status: Chronic (6) Atrial fibrillation Code(s): I48.91 - UNSPECIFIED ATRIAL FIBRILLATION Status: Chronic Qualifiers: Atrial fibrillation type: chronic Qualified Code(s): I48.2 - Chronic atrial fibrillation Comment: V-paced, continue rate-control measures, Lovenox for anticoagulation (7) Acute UTI Code(s): N39.0 - URINARY TRACT INFECTION, SITE NOT SPECIFIED Status: Acute Comment: Completed 5 days of IV antibiotics, Will d/c Abx now. 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 - Discharge Day Encounter end time: 10:35 Review of Systems - Review of Systems Other: Unable to get ROS. - Medications/Allergies Allergies/Adverse Reactions: Allergies Allergy/AdvReac Type Severity Reaction Status Date / Time carisoprodol Allergy Unknown Verified 12/03/16 01:09 Penicillins Allergy Unknown Verified 12/03/16 01:09 NSAIDS (Non-Steroidal Allergy Verified 12/03/16 01:48 Anti-Inflamma tizanidine [From Zanaflex] Allergy Verified 12/03/16 01:48 Medications: Current Medications Lorazepam (Ativan) 1 mg SLOW IVP Q4H PRN PRN Reason: Anxiety/Agitation Last Admin: 05/28/17 16:22 Dose: 1 mg Morphine Sulfate (Morphine) 4 mg SLOW IVP Q3H PRN PRN Reason: Moderate to Severe Pain (6-10) Last Admin: 05/28/17 13:36 Dose: 4 mg Ondansetron HCl (Zofran Odt) 4 mg PO Q6H PRN PRN Reason: Nausea/Vomiting Ondansetron HCl (Zofran) 4 mg IVP Q6H PRN PRN Reason: Nausea/Vomiting Sodium Chloride (Flush - Normal Saline) 10 ml IVF Q12HR [facility] Last Admin: 05/29/17 10:09 Dose: 10 ml Sodium Chloride (Flush - Normal Saline) 10 ml IVF PRN PRN PRN Reason: Saline Flush Last Admin: 05/28/17 00:20 Dose: 10 ml
--- NOTE | 2017-05-29 15:24 | PRG ---
DATE OF SERVICE: 05/29/2017 SUBJECTIVE: This morning, to my surprise, she opened her eyes. Minimal verbal communication. OBJECTIVE: VITAL SIGNS: Sats are 98% on 3 liters, respirations 16, pulse 85, temperature 98. I do not see recorded blood pressure. CHEST: No rhonchi. CARDIAC: Normal S1 and S2, no gallops. ABDOMEN: Soft. LABORATORY DATA: No labs were done. IMPRESSION: DO NOT RESUSCITATE, respiratory failure, bronchopneumonia and congestive heart failure. PLAN: Comfort care. She could be transferred to inpatient hospice if she qualifies. We will follow.
[2017-05-29] MEDS: Morphine 4 MG/ML VIAL SLOW IVP PRN ×2 (15:35→23:18)
[2017-05-30] MEDS: Morphine 4 MG/ML VIAL SLOW IVP PRN ×3 (04:33→18:57)
--- NOTE | 2017-05-30 09:15 | PRG ---
DATE OF SERVICE: 05/30/2017 She is a DNR. To our surprise, she is a little bit more responsive. PHYSICAL EXAMINATION: VITAL SIGNS: Her sats are 90% on 3 liters, pulse 103, temperature 98, blood pressure was 145/75. Th e nurse tells me she was talking. CHEST: Chest reveals decreased breath sounds, no wheezing. CARDIAC: Normal S1, S2. ABDOMEN: Soft, no masses. LABORATORY DATA: White count 10,000, H&H 12 and 41. IMPRESSION: 1. Respiratory failure. 2. Congestive heart failure. 3. DNR. I agree with comfort care.
--- NOTE | 2017-05-30 14:38 | PDOC.PN ---
- Subjective Encounter Start Date: 05/30/17 Encounter Start Time: 14:30 Subjective: f/u for acute/chronic resp failure and multifactorial encephalopathy on -: palliative care measures. Family trying to decide on hospice options. - Objective Resuscitation Status: Resuscitation Status DNR:Do Not Resuscitate MAR Reviewed: Yes Vital Signs & Weight: Vital Signs (12 hours) Temp Pulse Resp BP Pulse Ox 05/30/17 08:00 98.4 F 77 20 153/72 H 96 Weight Weight 160 lb Most Recent Monitor Data Heart Rate from ECG 89 NIBP 155/80 NIBP BP-Mean 95 Respiration from ECG 33 SpO2 96 I&O: 05/29/17 05/30/17 05/31/17 06:59 06:59 06:59 Intake Total 95 0 Output Total 1750 850 Balance -8045 -850 Result Diagrams: 05/29/17 12:30 05/26/17 04:20 Phys Exam - Physical Examination opens eyes to name, responds in two word phrases to questions frail, ill-appearing HEENT: PERRLA, oral pharynx no lesions Neck: no JVD, supple diminished in bases, few scattered rhonchi and wheezes Respiratory: no rales Cardiovascular: no significant murmur, no rub, irregular Gastrointestinal: soft, non-tender, no distention, positive bowel sounds Musculoskeletal: no edema, pulses present lethargic, opens eyes to name Neurological: moves all 4 limbs A x O x 2 Skin: no rash, normal turgor, cap refill <2 seconds Dx/Plan (1) Acute on chronic respiratory failure with hypoxia and hypercapnia Code(s): J96.21 - ACUTE AND CHRONIC RESPIRATORY FAILURE WITH HYPOXIA; J96.22 - ACUTE AND CHRONIC RESPIRATORY FAILURE WITH HYPERCAPNIA Status: Acute Comment : BiPAP NIMV initially now on NC, supportive mgmt, Duonebs prn (2) Acute metabolic encephalopathy Code(s): G93.41 - METABOLIC ENCEPHALOPATHY Status: Acute Comment: Suspect due to narcotic OD and polypharmacy, intermittent with physical decline (3) CKD (chronic kidney disease), stage II Code(s): N18.2 - CHRONIC KIDNEY DISEASE, STAGE 2 (MILD) Status: Chronic Comment: Stable, avoid nephrotoxic meds and contrast (4) UTI (urinary tract infection) Status: Suspected Qualifiers: Urinary tract infection type: acute cystitis Hematuria presence: without hematuria Qualified Code(s): N30.00 - Acute cystitis without hematuria Comment: Suspected but current Ucx negative, completed abx course (5) Microcytic anemia Code(s): D50.9 - IRON DEFICIENCY ANEMIA, UNSPECIFIED Status: Chronic Comment : Stable, no active blood loss (6) Transaminitis Code(s): R74.0 - NONSPEC ELEV OF LEVELS OF TRANSAMNS & LACTIC ACID DEHYDRGNSE Status: Acute Comment: ? 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
[2017-05-31] MEDS: Morphine 4 MG/ML VIAL SLOW IVP PRN ×2 (00:11→08:13)
--- NOTE | 2017-05-31 09:44 | PRG ---
DATE OF SERVICE: 05/31/2017 This morning she is awake, responsive. She is complaining of nasal congestion. PHYSICAL EXAMINATION: VITAL SIGNS: Sats are 97% on 2 liters, pulse 80, temperature 98, blood pressure 130/75. CHEST: Chest revealed decreased breath sounds, minimal rhonchi. CARDIAC: Normal S1-S2. No gallops. ABDOMEN: Soft, no mass. IMPRESSION: 1. Metabolic encephalopathy, much improved. 2. DNR. 3. Respiratory failure. 4. Chronic obstructive pulmonary disease. 5. Sleep apnea. PLAN: She is clearly much improved. At this stage, comfort care. I agree with hospice. Flonase p.r.n. for nose.
[2017-05-31] MEDS: Lorazepam 2 MG/ML VIAL SLOW IVP PRN (14:36)
[2017-05-31 17:31] VITALS: BP 155/92; TEMP 98
[2017-05-31] MEDS ORDERED: Fluticasone Propionate Nasal Spray 16 gm Bottle NASAL SCH (21:00)
--- NOTE | 2017-06-01 02:51 | DIS ---
DATE OF ADMISSION: 05/23/2017 DATE OF DISCHARGE: 05/31/2017 DISCHARGE DIAGNOSES: 1. Acute on chronic hypoxic hypercapnic respiratory failure, multifactorial. 2. Acute metabolic encephalopathy, improved, likely secondary to polypharmacy. 3. Chronic kidney disease stage 2. 4. Urinary tract infection, organism not identified. 5. Microcytic anemia, chronic, stable. 6. Transaminitis. 7. Chronic atrial fibrillation with controlled rate and ventricular pacing. 8. Chronic pain disorder. 9. Polypharmacy. 10. Chronic obstructive pulmonary disease. CONSULTATIONS: Dr. Collier with Pulmonology Service. Dr. San with Cardiology Service. PERTINENT LABORATORY AND X-RAY FINDINGS: Basic metabolic profile showed carbon dioxide level ranged between 28-36, AST ranged between 66-114, ALT ranged between 105-114, troponin I negative x3. TSH 0. 48. CBC showed a white blood cell count ranged between 5.8-10.2, hemoglobin ranged between 9.6-12.4. Blood cultures x2 from 05/23/2017 showed no growth at 5 days. Urine culture dated 05/23/2017 showe d no growth at 36 hours. Urine culture from 05/19/2017 showed greater than 100,000 colonies of E. co fay, pansensitive. Portable chest x-ray dated 05/23/2017 showed no acute cardiopulmonary process. CT of the brain without contrast dated 05/23/2017 showed no acute intracranial process. Portable chest x-ray dated 05/25/2017 showed moderate right pleural effusion. A 2D transthoracic echocardiogram da lloyd 05/25/2017 showed ejection fraction of 50%-55%. Atrial fibrillation noted during the study. Sev erely dilated left atrium. Biatrial enlargement with severely dilated left atrium. Severe tricuspid regurgitation. HOSPITAL COURSE: The patient was initially admitted to the Critical Care Unit after presenting with altered mentation and initial concern for underlying infectious process with urinary tract infection as contributing source. The patient underwent extensive and comprehensive evaluation including neuro imaging showing no acute process. The patient was placed in the critical care unit with acute metab olic encephalopathy with suspicion for infectious process continued on IV antibiotic therapy. Repeat urine culture showed no growth after an initial urine culture from 05/19/2017 showed greater than 10 0,000 colonies of E. coli. The patient received IV Levaquin and Rocephin during the hospital course. The patient continued clinical decline in the critical care unit with acute respiratory failure, li [place] polypharmacy induced in conjunction with metabolic encephalopathy and underlying infectious proc ess. The patient was placed on BiPAP noninvasive mechanical ventilation and given aggressive pulmona ry supportive measures as well as consultation with the Critical Care Service. The patient also was treated after code green was initiated with Narcan after concern for narcotic exposure contributing t he patient's presentation. The patient clinically improved; however, remained on BiPAP noninvasive m echanical ventilation, eventually transitioning to nasal cannula. During patient's decompensated sta te, discussions were had with the family regarding palliative measures versus aggressive intervention and intubation. Due to patient's clinical decline, the family decided to pursue palliative measures at which point the patient was transitioned from the critical care unit to the medical floor. The p atient slowly improved clinically with more lucid intervals and improved mental status. The patient was given general supportive measures and continued to converse with family members and staff and ret urned to baseline functional status prior to admission. The patient remained severely deconditioned and discussions were had with the family regarding hospice care in an inpatient facility versus home with hospice. Due to patient's return of mentation, family decided to pursue hospice care at home as the most viable option. Overall, patient clinically stable currently and ready to discharge to home with [facility] on 05/31/2017. I have examined the patient discussed discharge planni regine and follow up with the patient regarding hospice care after discharge. The patient and family luz balized understanding and agreement. DISCHARGE MEDICATIONS: 1. Omnicef 300 mg 1 tab p.o. b.i.d. x5 days. 2. Aspirin enteric coated 81 mg 1 tab p.o. daily. 3. Coreg 6.25 mg p.o. b.i.d. 4. Vitamin D2 of 50,000 units p.o. twice weekly. 5. Folic acid 1 mg p.o. daily. 6. Lasix 40 mg 1 tab p.o. daily. 7. Neurontin 300 mg p.o. t.i.d. 8. Prevacid 30 mg p.o. daily. 9. Levothyroxine 125 mcg p.o. daily. 10. Robaxin 750 mg p.o. q.i.d. 11. Reglan 10 mg p.o. q.i.d. 12. Sotalol 120 mg p.o. b.i.d. FOLLOWUP: The patient to follow up with [facility] after discharge home. CONDITION ON DISCHARGE: Fair. ACTIVITY: Ad danica. DIET: Regular as tolerated. CODE STATUS: DO NOT RESUSCITATE. DISPOSITION: Home with [facility] on 05/31/2017. Total time preparing and coordinating discharge is 33 minutes.
--- NOTE | 2017-06-19 11:27 | EKG ---
Test Reason : CODE GREEN Blood Pressure : / mmHG Vent. Rate : 101 BPM Atrial Rate : 101 BPM P-R Int : 000 ms QRS Dur : 154 ms QT Int : 426 ms P-R-T Axes : 000 -29 090 degrees QTc Int : 552 ms Electronic ventricular pacemaker When compared with ECG of 23-MAY-2017 11:57, (Unconfirmed) Vent. rate has increased BY 5 BPM Confirmed by IVY JONES M.D. ([id number] on 06/19/2017 11:26:57 AM Referred By: BEAU Confirmed By:IVY JONES M.D.
== END 2017-05-31 18:10 | disposition hospice, home (50) | DRG 91 ==
LOC: ERS 11:33 → ERHOLD 13:57 → OBSVTOIN 13:57 → 2NO 18:51 → CCU 05-25 08:59 → ONC 05-26 13:26
PROVIDERS: ADMIT Family Medicine; ATTEND Family Medicine
PROC: 5A09357 Assistance with Respiratory Ventilation, Less than 24 Consecutive Hours, Continuous Positive Airway Pressure (ICD-10-PCS; principal; 2017-05-25)
PROC: 5A09357 Assistance with Respiratory Ventilation, Less than 24 Consecutive Hours, Continuous Positive Airway Pressure (ICD-10-PCS; 2017-05-26)
DX: G92 Toxic encephalopathy (principal); J96.21 Acute and chronic respiratory failure with hypoxia; G93.41 Metabolic encephalopathy; J96.22 Acute and chronic respiratory failure with hypercapnia; I50.32 Chronic diastolic (congestive) heart failure; I13.0 Hypertensive heart and chronic kidney disease with heart failure and stage 1 through stage 4 chronic kidney disease, or unspecified chronic kidney disease; I42.9 Cardiomyopathy, unspecified; N30.00 Acute cystitis without hematuria; T50.905A Adverse effect of unspecified drugs, medicaments and biological substances, initial encounter; I48.2 Chronic atrial fibrillation; J44.9 Chronic obstructive pulmonary disease, unspecified; N18.2 Chronic kidney disease, stage 2 (mild); D50.9 Iron deficiency anemia, unspecified; G89.29 Other chronic pain; R74.0 Nonspecific elevation of levels of transaminase and lactic acid dehydrogenase [LDH]; Z51.5 Encounter for palliative care; Z66 Do not resuscitate; Z95.810 Presence of automatic (implantable) cardiac defibrillator; Z79.01 Long term (current) use of anticoagulants; E78.5 Hyperlipidemia, unspecified; K21.9 Gastro-esophageal reflux disease without esophagitis; E03.9 Hypothyroidism, unspecified; G47.33 Obstructive sleep apnea (adult) (pediatric); Z79.891 Long term (current) use of opiate analgesic; Z79.899 Other long term (current) drug therapy; Z91.81 History of falling; S22.41XD Multiple fractures of ribs, right side, subsequent encounter for fracture with routine healing
CPT/HCPCS: 36415; 36416; 51701; 70450; 71045; 71260; 74177; 80053; 81003; 81015; 82553; 82805; 83605; 83735; 84443; 84484; 85007; 85025; 85027; 87040; 87077; 87086; 87186; 93005; 93010; 93306; 94640; 94660; 94760; 96360; 96361; 96374; A4216; A4353; G8978-GP-CI; G8979-GP-CI; G8996-GN-CI; G8997-GN-CH; J0360; J0692; J0696; J1160; J1650; J1940; J1956; J2060; J2270; J2310; J2920; J3490; J7050; J7620